=== PATIENT | female | born 1950 ===

== ENCOUNTER → 2020-09-25 10:44 | Outpatient (BNVA) | payer MEDICARE, MEDICAID, SELFPAY | PROVIDERS: PCP Internal Medicine; Referring Provider Internal Medicine; Visit Provider Student in an Organized Health Care Education/Training Program | DX: M81.0 Age-related osteoporosis without current pathological fracture (principal) | CPT/HCPCS: 99212 ==

== ENCOUNTER 2020-10-09 07:18 | Day surgery (SDC) | payer MEDICARE, MEDICAID, SELFPAY ==
[2020-10-02 13:47] VITALS: BMI 34.7
[2020-10-09 07:47] VITALS: BP 146/87; PULSE 92; RESP 18; TEMP 36.6; O2SAT 96
--- NOTE | 2020-10-09 07:49 | P.CONAN_ITS ---
HPI - Anesthesia Eval Consult details Narrative: 70yo female patient here for colonoscopy [facility] Past Medical History Medical History (Updated 10/09/20 @ 07:59 by Viridiana Vega) Essential hypertension GERD (gastroesophageal reflux disease) Hypovitaminosis D Low back pain Obese Osteoarthritis Osteoporosis Polyarthralgia Vitamin D deficiency Family History Family History Father Cancer Mother Cancer Son Past heart attack Family history of problems with anesthesia: No Surgical History Surgical History History of tubal ligation Hx of colonoscopy History of Problems with Anesthesia: No Social History Social History Household Members: None Are you a primary patient care associate to a significant other at home: No Do you presently have 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 If so, by whom?: No Advance Directives: No Advance Directives Information Provided: No Advance Directives on File: No Recently lost weight without trying: No Sexual orientation: Straight/Heterosexual Gender identity: female Meds Allergies Allergy/AdvReac Type Severity Reaction Status Date / Time tizanidine Allergy Unknown dry mouth Verified 09/25/20 10:49 Home Medications Medication Instructions Recorded Confirmed Type aspirin 81 mg tablet,delayed 81 mg PO DAILY 09/04/20 10/02/20 History release cholecalciferol (vitamin D3) 25 25 mcg PO DAILY 09/04/20 10/02/20 History mcg (1,000 unit) tablet lisinopril 20 mg tablet 20 mg PO DAILY 09/25/20 10/02/20 History Exam Exam Date and Time: October 09, 2020 0749 Height,Weight and Vital Signs: Height 4 ft 6 in Weight 65.317 kg Vital Signs Temp Pulse Resp BP Pulse Ox 10/09/20 07:47 97.8 F 92 18 146/87 H 96 Narrative Narrative: Barrel-shaped chest. No h/o COPD. Never smoker Airway Mallampati Class: II TM Dist: >3cm Neck ROM: Full Loose/Missing/Broken Teeth: Yes (Some missing) Heart: RRR Lungs: CTAB Assessment and Plan Assessment Anesthesia Assessment: Anesthesia Plan Discussed and Chart Reviewed Final Anesthetic Review NPO: Yes ASA Class: II Final Preanesthetic Review: No Changes in Pt Med Stat, Meds/Allgs Chart Reviewed, Consent Obtained/Reviewed and Anes Risks/Benef Reviewed Patient Risk: Low Procedure Risk: Low Assessment/Block/Sedation in SS: Assess/Block/Sedation-SS Anesthetic Plan Anesthetic Plan: MAC: Disposition: Standard PACU
[2020-10-09] MEDS: Lactated Ringers 1,000 ML 100 ML IVCONT (08:06)
[2020-10-09 09:24] VITALS: BP 127/59; PULSE 93; RESP 16; TEMP 36.5; O2SAT 99
--- NOTE | 2020-10-09 09:25 | PM.OP ---
Brief Operative Note Date of Service: 10/09/20 Pre-op diagnosis: Screening, History of colon polyps Post-op diagnosis: other (Diverticulosis, Internal hemorrhoids) Procedure: Colonoscopy to the cecum Surgeon: Abdias Singer Anesthesia: MAC Estimated blood loss (mL): 0 Pathology: none sent Condition: stable Disposition: PACU
--- NOTE | 2020-10-09 09:34 | PC.NURSE ---
7587 DR REYNA IN AT BS SPEAKING WITH PT NO POLYPS THIS TIME REPEAT COLONOSCOPY 3 YEARS, SIT UP START SIPS PO.
[2020-10-09 09:39] VITALS: BP 140/81; PULSE 88; RESP 16; O2SAT 99
--- NOTE | 2020-10-09 10:05 | HO.POSTANES ---
Post Anesthesia Evaluation Post Anesthesia Evaluation Vital Signs: Vital Signs Temp Pulse Resp BP Pulse Ox 10/09/20 09:24 97.7 F 93 16 127/59 L 99 10/09/20 07:47 97.8 F 92 18 146/87 H 96 Anesthesia: Monitored Mental Status: Awake Pain Control: Satisfactory Nausea/Vomiting: None Hydration: Adequate Anesthesia-Related Issues: No Anes. Related Issues
--- NOTE | 2020-10-09 10:12 | OP_ITS ---
SURGEON: Abdias Singer MD INDICATIONS: The patient presents for followup of colorectal cancer screening and personal history of tubular adenoma of the colon. Full consent has been obtained from her for this, including risks of bleeding and perforation. PREOPERATIVE DIAGNOSIS: POSTOPERATIVE DIAGNOSIS: PROCEDURE PERFORMED: Colonoscopy to the cecum. ESTIMATED BLOOD LOSS: COMPLICATIONS: ANESTHESIA: ASSISTANTS: SPECIMENS: PREOPERATIVE DIAGNOSES: Colorectal cancer screening and personal history of tubular adenoma of the colon. POSTOPERATIVE DIAGNOSES: Colorectal cancer screening and personal history of tubular adenoma of the colon, diverticulosis, and internal hemorrhoids. DESCRIPTION OF PROCEDURE: The patient was placed in the left lateral decubitus position. The digital rectal exam revealed no abnormalities. The Olympus video pediatric colonoscope was entered into the rectum and advanced easily to the cecum. Once in the cecum, I did identify normal-appearing cecal pouch with appendiceal orifice and a normal-appearing ileocecal valve. There was transillumination of light deep in the right lower quadrant. The entire cecum was well visualized and appeared normal. The scope was slowly withdrawn assessing all mucosal surfaces carefully. Preparation was excellent. The ileocecal valve appeared normal. The site of the previous polypectomy, which was in the very proximal ascending colon along the inferior portion of the ileocecal valve did not appear to show any residual polyp tissue. I did not visualize any polyps, colitis, nor angiodysplasia. There was a mild amount of sigmoid diverticulosis. In the rectum, scope was retroflexed visualizing internal hemorrhoids, but no other pathology. The rectal mucosa appeared normal. The scope was straightened out and withdrawn from the patient. She tolerated the procedure well and was returned to the recovery area in stable condition. IMPRESSION: 1. Diverticulosis. 2. Internal hemorrhoids. PLAN: Given her previous history, I would recommend a followup colonoscopy in 3 years for further surveillance. She was advised that she could resume aspirin today. This has been discussed with her family. MD NICK Mishra/MIREYAL / [id number]
== END 2020-10-09 10:06 | disposition home or self-care (01) ==
PROVIDERS: PCP Internal Medicine; Visit Provider Internal Medicine
PROC: 0DJD8ZZ Inspection of Lower Intestinal Tract, Via Natural or Artificial Opening Endoscopic (ICD-10-PCS; CPT 45378; principal; 2020-10-09 08:40)
DX: Z12.11 Encounter for screening for malignant neoplasm of colon (principal); Z86.010 Personal history of colon polyps; I10 Essential (primary) hypertension; K21.9 Gastro-esophageal reflux disease without esophagitis; M81.0 Age-related osteoporosis without current pathological fracture; K57.30 Diverticulosis of large intestine without perforation or abscess without bleeding; K64.8 Other hemorrhoids; Z79.82 Long term (current) use of aspirin; Z79.899 Other long term (current) drug therapy
CPT/HCPCS: G0105

== ENCOUNTER → 2020-10-11 12:54 | Outpatient (BNVA) | payer MEDICARE, MEDICAID, SELFPAY | PROVIDERS: PCP Internal Medicine; Visit Provider Student in an Organized Health Care Education/Training Program | DX: M81.0 Age-related osteoporosis without current pathological fracture (principal) | CPT/HCPCS: 96402 ==

== ENCOUNTER 2020-11-06 08:02 | Outpatient (REF) | payer MEDICARE, MEDICAID, SELFPAY ==
[2020-11-06 09:38] LABS: Alanine Aminotransferase 12 U/L (0-31); Albumin Level 4.4 g/dL (3.5-5.0); Alkaline Phosphatase 89 U/L (39-117); Anion Gap 13 (12-20); Aspartate Amino Transferase 17 U/L (5-31); Bilirubin Total 0.9 mg/dL (0.0-1.0); Blood Urea Nitrogen 16 mg/dL (9-16); Carbon Dioxide 26 mmol/L (22-29); Chloride 102 mmol/L (96-108); Cholesterol 209 mg/dL; Estimated Glomerular Filt Rate > 60; Glucose Fasting 112 mg/dL (60-99); HDL Cholesterol 68 mg/dL; LDL Cholesterol Calculated 112 mg/dl; Potassium 4.8 mmol/L (3.3-5.1); Sodium 136 mmol/L (135-145); Total Protein 7.3 g/dL (6.5-8.0); Triglycerides 145 mg/dL
[2020-11-12 13:57] LABS: Vitamin D 25-OH, D2 <4 ng/mL; Vitamin D 25-OH, D3 56 ng/mL; Vitamin D 25-OH, Total 56 ng/mL (30-100)
== END 2020-11-06 08:03 | disposition home or self-care (01) ==
LOC: HO.LAB 08:02
PROVIDERS: PCP Internal Medicine; Visit Provider Internal Medicine
DX: I10 Essential (primary) hypertension (principal); E55.9 Vitamin D deficiency, unspecified
CPT/HCPCS: 36415; 80053; 80061; 82306

== ENCOUNTER 2020-11-28 10:38 | Outpatient (REF) | payer MEDICARE, MEDICAID, SELFPAY ==
--- NOTE | ~2020-11-28 | MM_ITS ---
EXAMINATION: MM DIAGNOSTIC DIGITAL BREAST TOMOSYNTHESIS, RIGHT CLINICAL INFORMATION: Short interval six-month follow-up for linear density inferior medial right breast. The lifetime risk of breast cancer based on the Tyrer-Cuzick Model is 3%. COMPARISON: Mammography: 05/31/2020, 05/22/2020 (BI-RADS 0) 04/12/2019 TECHNIQUE: Digital breast tomosynthesis is performed in both the craniocaudal and mediolateral oblique views along with computer-aided detection (CAD). Synthesized 2D images are generated from the tomosynthesis. FINDINGS: The breasts are almost entirely fatty (ACR BI-RADS breast composition Category a). The short linear density noted on prior imaging is not seen with certainty on current exam. There is no developing density or interval mass or architectural abnormality. No abnormal calcifications. Results are provided to the patient at time of visit by the technologist. Plantar for diagnostic mammography at time of annual bilateral exam, due in 6 months. If the finding is no longer present, then convert to BI-RADS 2. MM/MM tomosynthesis diagnostic RT IMPRESSION: No mammographic evidence of malignancy. The short linear density inferior medial right breast is no longer demonstrated with certainty. ASSESSMENT: BI-RADS 3: Probably Benign RECOMMENDATION: Diagnostic mammography at time of annual bilateral exam, due in 6 months. This patient's information was entered into a reminder system with a target due date for their next mammogram.
== END 2020-11-28 10:39 | disposition home or self-care (01) ==
LOC: HO.MAMMO 10:38
PROVIDERS: PCP Internal Medicine; Visit Provider Internal Medicine
DX: R92.2 Inconclusive mammogram (principal)
CPT/HCPCS: 77061; 77065

== ENCOUNTER 2021-01-13 09:33 | Emergency (ER) | payer MEDICARE, MEDICAID, SELFPAY ==
--- NOTE | ~2021-01-13 | CT_ITS ---
EXAMINATION: CT ABDOMEN AND PELVIS WITHOUT CONTRAST CLINICAL INFORMATION: Right flank pain COMPARISON: None TECHNIQUE: Multidetector volumetric imaging was performed from the superior aspect of the liver through the pubic symphysis. Sagittal and coronal reformatted images were obtained on the technologist's workstation. This CT examination was performed using dose optimization techniques as appropriate, variously including the following: *Automated exposure control *Adjustment of mA and/or kV according to patient size (this includes techniques or standardized protocols for targeted exams where dose is matched to indication/reason for exam; i.e. extremities or head) *Use of iterative reconstruction technique DLP: 521 mGy-cm FINDINGS: LUNG BASES: The visualized lung bases are unremarkable. LIVER, GALLBLADDER, AND BILIARY TREE: The liver is normal in size, shape, and attenuation. No focal hepatic lesion or biliary ductal dilatation is present. The gallbladder is unremarkable with no evidence of radiopaque gallstones, gallbladder wall thickening, or obvious pericholecystic inflammatory changes. PANCREAS: Unremarkable. SPLEEN: Unremarkable. ADRENAL GLANDS: Unremarkable. KIDNEYS AND URETERS: The kidneys are normal in size, shape, and attenuation. No hydronephrosis, hydroureter, or calculi seen. No perinephric stranding. BLADDER: Unremarkable. GASTROINTESTINAL TRACT: The small and large bowel are unremarkable. The appendix is unremarkable. ABDOMINAL WALL: No significant hernia is appreciated. LYMPH NODES: Normal. VASCULAR: Unremarkable. PELVIC VISCERA: Unremarkable. OSSEOUS STRUCTURES: There are multiple lower thoracic thoracic and lumbar vertebral body compression fractures, sparing the L3 vertebral body. These do not appear acute. There is a sclerotic lesion in the left side of the S1 vertebral body CT/CT abdomen pelvis wo con IMPRESSION: Multiple lower thoracic and lumbar vertebral body compression fractures. These do not appear acute. Otherwise unremarkable exam.
[2021-01-13 11:03] VITALS: BP 116/61; PULSE 70; RESP 16; TEMP 37; O2SAT 100; BMI 34.4
--- NOTE | 2021-01-13 12:45 | ED_ITS ---
HPI - Abdominal Pain General Chief Complaint: Abdominal Pain Stated Complaint: FLANK PAIN Time Seen by Provider: 01/13/21 11:36 Source: patient Mode of arrival: ambulatory Limitations: language barrier (Serbian-speaking) History of Present Illness HPI narrative: 70-year-old female with a past medical history of essential hypertension, GERD, chronic low back pain with osteoporosis presenting to the ED with complaints of right-sided lower back/flank pain radiating to the right abdomen that started last night worse this morning. Denies any dizziness, fevers, headaches, lightheadedness, change in vision, nausea/vomiting, chest pain, shortness of breath, dyspnea on exertion, orthopnea, palpitations, dysuria, hematuria, black or bloody stools, recent travel or sick contacts or bad food exposure or any other symptoms complaints or concerns at this time. MD elicited complaint: abdominal pain and flank pain Onset (ago): day(s) (Since last night worse today) Pain Consistency: constant Location: R flank and other (Right back) Severity: moderate Quality: aching Radiation: RLQ Exacerbating factors: nothing Relieving factors: nothing Associated symptoms: denies other symptoms Related Data Home Medications Medication Instructions Recorded Confirmed cholecalciferol (vitamin D3) 25 25 mcg PO DAILY 09/04/20 11/26/20 mcg (1,000 unit) tablet Previous Rx's Medication Instructions Recorded famotidine 20 mg tablet 20 mg PO BID #180 tab 06/25/20 acetaminophen 500 mg tablet 1,000 mg PO Q6H PRN 30 Days #180 09/04/20 tab denosumab 60 mg/mL subcutaneous 60 mg SUBCUT [id number] #1 ml 10/02/20 syringe aspirin 81 mg tablet,delayed 81 mg PO DAILY #90 tab 11/26/20 release lisinopril 20 mg tablet 20 mg PO DAILY 90 Days #90 tab 11/26/20 acetaminophen-codeine 1 tab PO Q8H PRN #10 tab 01/13/21 cyclobenzaprine 10 mg PO Q8H #10 tab 01/13/21 naproxen 500 mg PO BID PRN #10 tab 01/13/21 Allergies Allergy/AdvReac Type Severity Reaction Status Date / Time tizanidine Allergy Unknown dry mouth Verified 01/13/21 11:03 Review of Systems Review of Systems Constitutional : No Weight loss, No Fever, No Chills, No Night Sweats, No Fatigue, NoMalaise ENT/Mouth: No ear pain, No sore throat, No Difficulty swallowing Cardiovascular : No Chest Pain, No SOB, No Dyspnea on Exertion, No Orthopnea, NoEdema, No Palpitations Respiratory : No Cough, No Sputum, No Wheezing, No Dyspnea Gastrointestinal : Positive abdominal pain, No Nausea, No Vomiting, No Diarrhea , No blood streaked emesis, No coffee-ground emesis, No gross hematemesis, No blood streak stool, No gross hematochezia, No Melena Genitourinary : No irregular bleeding, No Dysuria, No Urinary Frequency, No Hematuria,No Urinary Incontinence, No Urgency, No Flank Pain Musculoskeletal : No joint pain, No Myalgias, No Joint Swelling Skin : No Skin Lesions, No rash Neuro : No Weakness, No Numbness, No Paresthesias, No Loss of Consciousness, NoDizziness, No Headache Psych : No Social Issues, Heme/Lymph: No Bruising, No Bleeding,No Lymphadenopathy Endocrine : No Polyuria, No Polydipsia, No Temperature Intolerance Yes all other systems are reviewed and are negative Physical Exam Vital Signs: Vital Signs: Last Vital Signs Temp 98.6 F 01/13/21 11:03 Pulse 70 01/13/21 11:03 Resp 16 01/13/21 11:03 BP 116/61 01/13/21 11:03 Pulse Ox 100 01/13/21 11:03 Body Mass Index 34.4 vital signs have been reviewed as normal and appeared to be correct. Blood pressure normal. Heart rate normal. Respiration rate normal. Temperature normal. Oxygen saturation normal. Appearance: Alert. Oriented X3. No acute distress. Head: Normal external exam. Normocephalic. Eyes: PERRLA. EOMI. Conjunctiva and sclera normal. Eyelids normal. ENT: Pharynx normal. Uvula midline. Moist mucous membranes. No trismus noted. No drooling noted. No muffled voice noted. Neck: Normal inspection. Neck supple. FROM. No adenopathy. No meningeal signs. CVS: Normal heart rate and rhythm. Heart sound normal. No murmurs noted. Pulses normal throughout. Respiratory: No respiratory distress. Painless inspiration. Breath sounds normal. No wheezes/rales/rhonchi noted. Chest nontender. No accessory muscle usage noted or decreased air movement noted. Abdomen: Soft and mild tenderness to the right upper quadrant/right lower quadrant/right flank with guarding. Nondistended. No rigidity. Bowel sounds normal in all 4 quadrants. No distention noted. No organomegaly noted. No visible injury noted. No rebound tenderness. Negative Rovsing sign. Negative obturator's sign. Negative psoas sign. Negative Owens sign. Back: Positive right CVA tenderness. No left CVA tenderness is noted. Full range of motion noted. No rashes/lesion/induration/fluctuance or sign of infection noted. Patient has a normal steady gait. No mid thoracic/lumbar tenderness step-offs or deformities noted. Patient is neuro intact bilaterally distally on all 4 extremities. Reflexes intact bilaterally and distally in all 4 extremities. Skin: Skin warm and dry. Normal skin color. Normal skin turgor. No rashes/lesions/lacerations noted. Extremities: Extremities exhibit normal range of motion. Extremities nontender. Neuro: Oriented X 3. No motor deficit. No sensory deficit. Reflexes normal. Normal steady gait. Course Course Course Narrative: 14pm - labs returned and all within normal limits. UA within normal limits no evidence of UTI. - CT scan of abdomen and pelvis revealed Multiple lower thoracic and lumbar vertebral body compression fractures. These do not appear acute. Otherwise unremarkable exam. - therefore will DC home with symptomatic treatment instructions to return if any new or worsening symptoms to follow up with primary care provider. Patient understands agrees with this plan. MDM - Abdominal Pain MDM Narrative Medical decision making narrative: 12pm - 70-year-old female with a past medical history of essential hypertension, GERD, chronic low back pain with osteoporosis presenting to the ED with complaints of right-sided lower back/flank pain radiating to the right abdomen that started last night worse this morning. Plan: Labs, UA, CT scan of abdomen and pelvis without IV contrast. Provide a L of IV fluids and 30 mg of IV Toradol then re-evaluate. Medical Records Attestation: I reviewed the patient's medical records. Lab Data Attestation: I reviewed the patient's lab results. Result diagrams: 01/13/21 13:04 01/13/21 13:04 Labs: Lab Results 01/13/21 01/13/21 01/13/21 Range/Units 12:50 13:04 13:04 WBC 7.4 (4.8-10.8) X10*3/uL RBC 3.98 L (4.20-5.50) X10*6/uL Hgb 12.2 (12.0-16.0) g/dl Hct 37.0 (37-47) % MCV 93.0 (80-98) fL MCH 30.7 (27.0-33.0) pg MCHC 33.0 (31.0-35.0) g/dl RDW 13.2 (11.0-16.0) % Plt Count 285 (160-400) X10*3/uL MPV 10.7 (9.4-12.3) fL Immature Gran % (Auto) 0.3 (0.0-0.4) % Neut % (Auto) 65.6 (45-73) % Lymph % (Auto) 25.5 (20-40) % [place] % (Auto) 7.0 (2-11) % Eos % (Auto) 1.3 (0-4) % Baso % (Auto) 0.3 (0-2) % Lymph # (Auto) 1.9 (1.2-4.9) X10*3/uL [place] # (Auto) 0.5 (0.1-1.2) X10*3/uL Eos # (Auto) 0.1 (0.0-0.4) X10*3/uL Baso # (Auto) 0.0 (0.0-0.2) X10*3/uL Abs Immat Gran (auto) 0.02 (0.00-0.03) X10*3/uL Absolute Neuts (auto) 4.9 (2.0-8.3) X10*3/uL Absolute Nucleated RBC 0.000 (0.0-0.012) X10*3/uL Nucleated RBC % (auto) 0.0 (0.0-0.2) /100WBC Hold Blue Top Sodium 136 (135-145) mmol/L Potassium 4.6 (3.3-5.1) mmol/L Chloride 105 (96-108) mmol/L Carbon Dioxide 20 L (22-29) mmol/L Anion Gap 16 (12-20) BUN 17 H (9-16) mg/dL Creatinine 0.68 (0.5-1.4) mg/dL Estim Creat Clear Calc 53.8 Estimated GFR > 60 Random Glucose 102 (60-115) mg/dL Calcium 9.3 (8.4-10.2) mg/dL Magnesium 2.3 (1.6-2.6) mg/dL Total Bilirubin 0.5 (0.0-1.0) mg/dL Direct Bilirubin 0.3 (0.0-0.5) mg/dL AST 21 (5-31) U/L ALT 16 (0-31) U/L Alkaline Phosphatase 64 D (39-117) U/L Total Protein 7.0 (6.5-8.0) g/dL Albumin 4.2 (3.5-5.0) g/dL Lipase 17 (8-78) U/L Urine Color YELLOW Urine Appearance CLEAR Urine pH 6.5 (5.0-8.0) Ur Specific [place] 1.020 (1.005-1.025) Urine Protein NEG (NEG-TRACE) MG/DL Urine Glucose (UA) NEG (NEG) MG/DL Urine Ketones 5 (NEG) MG/DL Urine Blood NEG (NEG) Urine Nitrite NEG (NEG) Ur Leukocyte Esterase NEG (NEG) 01/13/21 Range/Units 13:04 WBC (4.8-10.8) X10*3/uL RBC (4.20-5.50) X10*6/uL Hgb (12.0-16.0) g/dl Hct (37-47) % MCV (80-98) fL MCH (27.0-33.0) pg MCHC (31.0-35.0) g/dl RDW (11.0-16.0) % Plt Count (160-400) X10*3/uL MPV (9.4-12.3) fL Immature Gran % (Auto) (0.0-0.4) % Neut % (Auto) (45-73) % Lymph % (Auto) (20-40) % [place] % (Auto) (2-11) % Eos % (Auto) (0-4) % Baso % (Auto) (0-2) % Lymph # (Auto) (1.2-4.9) X10*3/uL [place] # (Auto) (0.1-1.2) X10*3/uL Eos # (Auto) (0.0-0.4) X10*3/uL Baso # (Auto) (0.0-0.2) X10*3/uL Abs Immat Gran (auto) (0.00-0.03) X10*3/uL Absolute Neuts (auto) (2.0-8.3) X10*3/uL Absolute Nucleated RBC (0.0-0.012) X10*3/uL Nucleated RBC % (auto) (0.0-0.2) /100WBC Hold Blue Top SEE NOTE Sodium (135-145) mmol/L Potassium (3.3-5.1) mmol/L Chloride (96-108) mmol/L Carbon Dioxide (22-29) mmol/L Anion Gap (12-20) BUN (9-16) mg/dL Creatinine (0.5-1.4) mg/dL Estim Creat Clear Calc Estimated GFR Random Glucose (60-115) mg/dL Calcium (8.4-10.2) mg/dL Magnesium (1.6-2.6) mg/dL Total Bilirubin (0.0-1.0) mg/dL Direct Bilirubin (0.0-0.5) mg/dL AST (5-31) U/L ALT (0-31) U/L Alkaline Phosphatase (39-117) U/L Total Protein (6.5-8.0) g/dL Albumin (3.5-5.0) g/dL Lipase (8-78) U/L Urine Color Urine Appearance Urine pH (5.0-8.0) Ur Specific [place] (1.005-1.025) Urine Protein (NEG-TRACE) MG/DL Urine Glucose (UA) (NEG) MG/DL Urine Ketones (NEG) MG/DL Urine Blood (NEG) Urine Nitrite (NEG) Ur Leukocyte Esterase (NEG) Imaging Data CT scan of abdomen pelvis with IV contrast: Attestation: I personally reviewed and interpreted this imaging study as follows: Radiologist's impression: FINDINGS: LUNG BASES: The visualized lung bases are unremarkable. LIVER, GALLBLADDER, AND BILIARY TREE: The liver is normal in size, shape, and attenuation. No focal hepatic lesion or biliary ductal dilatation is present. The gallbladder is unremarkable with no evidence of radiopaque gallstones, gallbladder wall thickening, or obvious pericholecystic inflammatory changes. PANCREAS: Unremarkable. SPLEEN: Unremarkable. ADRENAL GLANDS: Unremarkable. KIDNEYS AND URETERS: The kidneys are normal in size, shape, and attenuation. No hydronephrosis, hydroureter, or calculi seen. No perinephric stranding. BLADDER: Unremarkable. GASTROINTESTINAL TRACT: The small and large bowel are unremarkable. The appendix is unremarkable. ABDOMINAL WALL: No significant hernia is appreciated. LYMPH NODES: Normal. VASCULAR: Unremarkable. PELVIC VISCERA: Unremarkable. OSSEOUS STRUCTURES: There are multiple lower thoracic thoracic and lumbar vertebral body compression fractures, sparing the L3 vertebral body. These do not appear acute. There is a sclerotic lesion in the left side of the S1 vertebral body CT/CT abdomen pelvis wo con IMPRESSION: Multiple lower thoracic and lumbar vertebral body compression fractures. These do not appear acute. Otherwise unremarkable exam. Critical Care Time Critical Care Time Critical Care Time: Yes Total Critical Care Time: 60 Attestation: I personally attest to this time spent taking care of the patient Discharge Plan Discharge Clinical Impression: Closed compression fracture of body of lumbar vertebra, Compression fracture of body of thoracic vertebra, Chronic back pain Patient Disposition: Home, Self-Care Instructions: Chronic Back Pain (DC), Lower Back Exercises (ED) Prescriptions: New cyclobenzaprine 10 mg tablet 10 mg PO Q8H Qty: 10 RF: 0 naproxen 500 mg tablet 500 mg PO BID PRN (Reason: pain) Qty: 10 RF: 0 acetaminophen-codeine 300-30 mg tablet 1 tab PO Q8H PRN (Reason: pain) Qty: 10 RF: 0 No Action famotidine 20 mg tablet 20 mg PO BID Qty: 180 RF: 2 Prolia 60 mg/mL syringe 60 mg subcut [id number] Qty: 1 RF: 1 cholecalciferol (vitamin D3) 25 mcg (1,000 unit) tablet 25 mcg PO DAILY RF: 0 acetaminophen 500 mg tablet 1,000 mg PO Q6H PRN (Reason: pain) 30 Days Qty: 180 RF: 4 aspirin 81 mg tablet,delayed release (DR/EC) 81 mg PO DAILY Qty: 90 RF: 3 lisinopril 20 mg tablet 20 mg PO DAILY 90 Days Qty: 90 RF: 3 Referrals: Angelina Ribeiro MD [Primary Care Provider] - 2 days Print Language: Serbian [facility] Past Medical History Attestation statement: The following information was validated with the patient. Medical History Essential hypertension GERD (gastroesophageal reflux disease) Hypovitaminosis D Low back pain Obese Osteoarthritis Osteoporosis Polyarthralgia Vitamin D deficiency Surgical History History of tubal ligation Hx of colonoscopy Family History Family History Father Cancer Mother Cancer Son Past heart attack Social History Social History Household Members: None Alcohol intake: never Smoking Status: Never smoker Second Hand Smoke Exposure: No Advance Directives: No Advance Directives Information Provided: Yes Sexual orientation: Straight/Heterosexual Gender identity: female
[2021-01-13 13:09] LABS: MANUAL DIFF FLAG NO
[2021-01-13 13:14] LABS: Glucose Urine UA NEG (NEG); Leukocyte Esterase Urine NEG (NEG); Nitrite Urine NEG (NEG); PH 6.5 (5.0-8.0); Urine Blood NEG (NEG); Urine Ketones 5 MG/DL (NEG); Urine Protein NEG (NEG-TRACE)
[2021-01-13 13:15] LABS: Basophils Percent Auto 0.3 % (0-2); Eosinophils Absolute Auto 0.1 X10*3/uL (0.0-0.4); Eosinophils Percent Auto 1.3 % (0-4); Hemoglobin 12.2 g/dl (12.0-16.0); Imm Gran Abs Auto 0.02 X10*3/uL (0.00-0.03); Imm Gran Pct Auto 0.3 % (0.0-0.4); Lymphocytes Absolute Auto 1.9 X10*3/uL (1.2-4.9); Lymphocytes Percent Auto 25.5 % (20-40); Mean Corpuscular Hemoglobin 30.7 pg (27.0-33.0); Mean Platelet Volume 10.7 fL (9.4-12.3); Monocytes Absolute Auto 0.5 X10*3/uL (0.1-1.2); Neutrophils Absolute Auto 4.9 X10*3/uL (2.0-8.3); Neutrophils Percent Auto 65.6 % (45-73); Platelet Count 285 X10*3/uL (160-400); Red Blood Count 3.98 X10*6/uL (4.20-5.50); Red Cell Distribution Width 13.2 % (11.0-16.0); White Blood Count 7.4 X10*3/uL (4.8-10.8)
[2021-01-13 13:15] LABS: Appearance Urine CLEAR; Color Urine YELLOW
[2021-01-13 13:39] LABS: Alanine Aminotransferase 16 U/L (0-31); Albumin Level 4.2 g/dL (3.5-5.0); Alkaline Phosphatase 64 U/L (39-117); Anion Gap 16 (12-20); Aspartate Amino Transferase 21 U/L (5-31); Bilirubin Direct 0.3 mg/dL (0.0-0.5); Bilirubin Total 0.5 mg/dL (0.0-1.0); Blood Urea Nitrogen 17 mg/dL (9-16); Calcium 9.3 mg/dL (8.4-10.2); Carbon Dioxide 20 mmol/L (22-29); Chloride 105 mmol/L (96-108); Creatinine Clr Calc Pharmacy 53.8; Estimated Glomerular Filt Rate > 60; Glucose Random 102 mg/dL (60-115); Lipase 17 U/L (8-78); Magnesium 2.3 mg/dL (1.6-2.6); Potassium 4.6 mmol/L (3.3-5.1); Sodium 136 mmol/L (135-145)
[2021-01-13] MEDS: Cyclobenzaprine HCl 10 MG TABLET PO (14:26)
== END 2021-01-13 14:30 | disposition home or self-care (01) ==
PROVIDERS: Physician Assistant Medical; Emergency Provider Emergency Medicine; PCP Internal Medicine
DX: M48.56XA Collapsed vertebra, not elsewhere classified, lumbar region, initial encounter for fracture (principal); M48.54XA Collapsed vertebra, not elsewhere classified, thoracic region, initial encounter for fracture; G89.29 Other chronic pain; M54.5 Low back pain; M54.6 Pain in thoracic spine; I10 Essential (primary) hypertension; M19.90 Unspecified osteoarthritis, unspecified site
CPT/HCPCS: 36415; 74176; 80048; 80076; 81003; 83690; 83735; 85025; 96361; 96374; 99283; 99291

== ENCOUNTER 2021-02-10 07:58 | Outpatient (REF) | payer MEDICARE, MEDICAID, SELFPAY ==
[2021-02-10 09:17] LABS: Alanine Aminotransferase 18 U/L (0-31); Albumin Level 4.2 g/dL (3.5-5.0); Alkaline Phosphatase 73 U/L (39-117); Anion Gap 11 (12-20); Aspartate Amino Transferase 21 U/L (5-31); Bilirubin Total 0.8 mg/dL (0.0-1.0); Blood Urea Nitrogen 13 mg/dL (9-16); Calcium 9.2 mg/dL (8.4-10.2); Carbon Dioxide 27 mmol/L (22-29); Chloride 106 mmol/L (96-108); Estimated Glomerular Filt Rate > 60; Glucose Fasting 100 mg/dL (60-99); Potassium 4.2 mmol/L (3.3-5.1); Sodium 140 mmol/L (135-145); Total Protein 6.9 g/dL (6.5-8.0)
[2021-02-16 14:11] LABS: Vitamin D 25-OH, D2 <4 ng/mL; Vitamin D 25-OH, D3 54 ng/mL; Vitamin D 25-OH, Total 54 ng/mL (30-100)
== END 2021-02-10 07:59 | disposition home or self-care (01) ==
LOC: HO.LAB 07:58
PROVIDERS: PCP Internal Medicine; Visit Provider Internal Medicine
DX: I10 Essential (primary) hypertension (principal); E55.9 Vitamin D deficiency, unspecified
CPT/HCPCS: 36415; 80053; 82306

== ENCOUNTER → 2021-04-30 12:37 | Outpatient (BNVA) | payer MEDICARE, MEDICAID, SELFPAY | PROVIDERS: Visit Provider Student in an Organized Health Care Education/Training Program | DX: M81.0 Age-related osteoporosis without current pathological fracture (principal); E55.9 Vitamin D deficiency, unspecified; I10 Essential (primary) hypertension; Z88.8 Allergy status to other drugs, medicaments and biological substances; Z79.82 Long term (current) use of aspirin; Z79.899 Other long term (current) drug therapy | CPT/HCPCS: 96372; 99212 ==

== ENCOUNTER 2021-05-29 10:13 | Outpatient (REF) | payer MEDICARE, MEDICAID, SELFPAY | END 2021-05-29 10:14 | disposition home or self-care (01) | LOC: HO.LAB 10:13 | PROVIDERS: PCP Internal Medicine; Visit Provider Internal Medicine | DX: Z13.89 Encounter for screening for other disorder (principal) ==

== ENCOUNTER 2021-06-02 13:12 | Outpatient (REF) | payer MEDICARE, MEDICAID, SELFPAY ==
--- NOTE | ~2021-06-02 | MM_ITS ---
EXAMINATION: MM DIAGNOSTIC DIGITAL BREAST TOMOSYNTHESIS, BILATERAL CLINICAL INFORMATION: Due for yearly. Also follow-up short linear density medial right breast. The lifetime risk of breast cancer based on the Tyrer-Cuzick Model is 3%. COMPARISON: Mammography: 11/28/2020, 05/31/2020, 05/22/2020 (BI-RADS 0), 04/12/2019, 10/03/2018, 03/15/2018. TECHNIQUE: Digital breast tomosynthesis is performed in both the craniocaudal and mediolateral oblique views along with computer-aided detection (CAD). Synthesized 2D images are generated from the tomosynthesis. Additional left MLO view is provided. FINDINGS: The breasts are almost entirely fatty (ACR BI-RADS breast composition Category a). The short linear density medial right breast initially noted on 05/22/2020 is not demonstrated on current exam nor on the prior study 6 months ago. The remainder of the bilateral breasts are unremarkable with no interval mass or developing density, architectural abnormality, or abnormal calcifications. The axilla and skin contours are unremarkable. Results are provided to the patient at time of visit by the technologist. MM/MM tomosynthesis diagnostic BI IMPRESSION: 1. No mammographic evidence of malignancy. 2. The short linear density medial right breast is no longer demonstrated. ASSESSMENT: BI-RADS 1: Negative RECOMMENDATION: Routine annual mammography screening. This patient's information was entered into a reminder system with a target due date for their next mammogram.
== END 2021-06-02 13:13 | disposition home or self-care (01) ==
LOC: HO.MAMMO 13:12
PROVIDERS: Internal Medicine; Visit Provider Internal Medicine
DX: R92.2 Inconclusive mammogram (principal); Z20.822 Contact with and (suspected) exposure to COVID-19
CPT/HCPCS: 77062; 77066; C9803; U0003; U0005

== ENCOUNTER 2021-06-25 07:45 | Outpatient (REF) | payer MEDICARE, MEDICAID, SELFPAY ==
[2021-06-25 08:59] LABS: Alanine Aminotransferase 16 U/L (0-31); Albumin Level 4.4 g/dL (3.5-5.0); Alkaline Phosphatase 68 U/L (39-117); Anion Gap 16 (12-20); Aspartate Amino Transferase 19 U/L (5-31); Bilirubin Total 0.8 mg/dL (0.0-1.0); Blood Urea Nitrogen 22 mg/dL (9-16); Carbon Dioxide 22 mmol/L (22-29); Chloride 103 mmol/L (96-108); Cholesterol 211 mg/dL; Estimated Glomerular Filt Rate > 60; Glucose Fasting 116 mg/dL (60-99); HDL Cholesterol 76 mg/dL; LDL Cholesterol Calculated 116 mg/dl; Potassium 4.8 mmol/L (3.3-5.1); Sodium 136 mmol/L (135-145); Total Protein 7.2 g/dL (6.5-8.0); Triglycerides 98 mg/dL
[2021-06-29 12:06] LABS: Vitamin D 25-OH, D2 <4 ng/mL; Vitamin D 25-OH, D3 52 ng/mL; Vitamin D 25-OH, Total 52 ng/mL (30-100)
== END 2021-06-25 07:46 | disposition home or self-care (01) ==
LOC: HO.LAB 07:45
PROVIDERS: PCP Internal Medicine; Visit Provider Internal Medicine
DX: E55.9 Vitamin D deficiency, unspecified (principal); E78.5 Hyperlipidemia, unspecified; K21.9 Gastro-esophageal reflux disease without esophagitis
CPT/HCPCS: 36415; 80053; 80061; 82306

== ENCOUNTER 2021-11-27 09:44 | Outpatient (REF) | payer MEDICARE, MEDICAID, SELFPAY ==
[2021-11-27 11:55] LABS: Alanine Aminotransferase 13 U/L (0-31); Albumin Level 4.1 g/dL (3.5-5.0); Alkaline Phosphatase 78 U/L (39-117); Anion Gap 13 (12-20); Aspartate Amino Transferase 19 U/L (5-31); Bilirubin Total 0.5 mg/dL (0.0-1.0); Blood Urea Nitrogen 19 mg/dL (9-16); Carbon Dioxide 26 mmol/L (22-29); Chloride 102 mmol/L (96-108); Estimated Glomerular Filt Rate > 60; Glucose Random 93 mg/dL (60-115); Potassium 4.7 mmol/L (3.3-5.1); Sodium 136 mmol/L (135-145)
[2021-11-27 15:04] LABS: Vitamin D 25-OH Total 54.4 ng/mL (>30)
== END 2021-11-27 09:45 | disposition home or self-care (01) ==
LOC: HO.LAB 09:44
PROVIDERS: PCP Internal Medicine; Visit Provider Nurse Practitioner Family
DX: M81.0 Age-related osteoporosis without current pathological fracture (principal)
CPT/HCPCS: 36415; 80053; 82306; 96372; 99212

== ENCOUNTER 2022-03-13 10:04 | Outpatient (REF) | payer MEDICARE, MEDICAID, SELFPAY ==
--- NOTE | ~2022-03-13 | MM_ITS ---
EXAMINATION: BONE DENSITOMETRY CLINICAL INDICATION: Age-related osteoporosis without current pathological fracture. COMPARISON: None (current study represents initial baseline exam). TECHNIQUE: Using a ActionBase DXA System (software version: 13.1) manufactured by [employer], dual-energy x-ray absorptiometry was performed of the lumbar spine and left hip. The images are of good technical quality. Summary results are attached. FINDINGS: AP SPINE L1-L4: BMD 0.759 g/cm2, Z-score -1.6, T-score -3.5, osteoporosis. LEFT FEMUR, NECK: BMD 0.884 g/cm2, Z-score 0.8, T-score -1.1, osteopenia. LEFT FEMUR, TOTAL: BMD 0.975 g/cm2, Z-score 1.5, T-score -0.3, normal. IDENTIFIED RISK FACTORS: Menopause, osteoporosis. HISTORY OF FRACTURE: None listed. MEDICATIONS: None listed. MM/XR DEXA axial skeleton IMPRESSION: 1. DIAGNOSIS: Osteoporosis based on the lowest T-score value of -3.5 in the lumbar spine applying World Health Organization criteria. 2. 10-YEAR FRACTURE RISK PREDICTION, FRAX: According to the guidelines, FRAX calculation should only be performed on patients in the osteopenia bone density category. Therefore, FRAX was not performed on this patient. 3. Treatment Recommendations: NOF guidelines recommend consideration for treatment in postmenopausal women and men age 50 and older presenting with the following: -A hip or vertebral (clinical or morphometric) fracture. -T-score less than or equal to -2.5 at the femoral neck or spine after appropriate evaluation to exclude secondary causes. -Low bone mass at the hip or spine and a 10-year fracture probability by FRAX of greater than or equal to 3% for hip fracture or greater than or equal to 20% for major osteoporotic fracture based on the [place] adapted WHO algorithm. 4. Other Recommendations: All treatment decisions require clinical judgment and consideration of individual patient factors, including patient preferences, comorbidities, previous drug use, risk factors not captured in the FRAX model (e.g. frailty, falls, vitamin D deficiency, increased bone turnover, interval significant decline in bone density) and possible under or overestimation of fracture risk by FRAX. Additional medical evaluation for secondary cause of low bone mineral density may be appropriate. FUTURE SCAN RECOMMENDATION: People with diagnosed cases of osteoporosis or at high risk for fracture should have regular bone mineral density tests. For patients eligible for Medicare, routine testing is allowed once every 2 years. The testing frequency can be increased to one year for patients who have rapidly progressing disease, those who are receiving or discontinuing medical therapy to restore bone mass, or have additional risk factors.
== END 2022-03-13 10:05 | disposition home or self-care (01) ==
LOC: HO.MAMMO 10:04
PROVIDERS: PCP Internal Medicine; Visit Provider Nurse Practitioner Family
DX: Z13.820 Encounter for screening for osteoporosis (principal); M81.0 Age-related osteoporosis without current pathological fracture; Z78.0 Asymptomatic menopausal state
CPT/HCPCS: 77080

== ENCOUNTER 2022-05-25 08:44 | Outpatient (REF) | payer MEDICARE, MEDICAID, SELFPAY ==
[2022-05-25 10:07] LABS: Alanine Aminotransferase 15 U/L (0-31); Albumin Level 4.2 g/dL (3.5-5.0); Alkaline Phosphatase 68 U/L (39-117); Anion Gap 15 (12-20); Aspartate Amino Transferase 18 U/L (5-31); Bilirubin Total 0.6 mg/dL (0.0-1.0); Blood Urea Nitrogen 28 mg/dL (9-16); Calcium 9.3 mg/dL (8.4-10.2); Carbon Dioxide 23 mmol/L (22-29); Chloride 102 mmol/L (96-108); Estimated Glomerular Filt Rate > 60; Glucose Random 106 mg/dL (60-115); Potassium 4.9 mmol/L (3.3-5.1); Sodium 135 mmol/L (135-145); Total Protein 7.1 g/dL (6.5-8.0)
== END 2022-05-25 08:45 | disposition home or self-care (01) ==
LOC: HO.LAB 08:44
PROVIDERS: PCP Internal Medicine; Visit Provider Nurse Practitioner Family
DX: M81.0 Age-related osteoporosis without current pathological fracture (principal)
CPT/HCPCS: 36415; 80053; 82306

== ENCOUNTER → 2022-05-26 10:01 | Outpatient (BNVA) | payer MEDICARE, MEDICAID, SELFPAY | PROVIDERS: PCP Internal Medicine; Visit Provider Nurse Practitioner Family | DX: M81.0 Age-related osteoporosis without current pathological fracture (principal) | CPT/HCPCS: 96372; 99212 ==

== ENCOUNTER 2022-06-05 11:47 | Emergency (ER) | payer MEDICARE, MEDICAID, SELFPAY ==
[2022-06-05 11:49] VITALS: PULSE 197; RESP 18; TEMP 36.4; O2SAT 100; BMI 32.1
--- NOTE | 2022-06-05 11:49 | ECG_ITS ---
Test Reason : SVT Blood Pressure : / mmHG Vent. Rate : 196 BPM Atrial Rate : 000 BPM P-R Int : 000 ms QRS Dur : 078 ms QT Int : 230 ms P-R-T Axes : 000 042 039 degrees QTc Int : 415 ms Supraventricular tachycardia Nonspecific ST and T wave abnormality Abnormal ECG No previous ECGs available Referred By: Generic ED Physician Electronically Signed By:RASHAUN CROSS
--- NOTE | 2022-06-05 11:56 | ED_ITS ---
HPI - General Adult General Chief complaint: Arrhythmia/Palpitations Stated complaint: Heart palpitations/Arm numbness Time Seen by Provider: 06/05/22 11:56 Source: patient Mode of arrival: ambulatory Limitations: no limitations History of Present Illness HPI narrative: Patient is a 72 year old female presenting to the emergency department today with palpitations. Patient states that starting 20 minutes ago, her heart began to race. Patient states that it started while she was eating breakfast which was a normal breakfast for her consisting of eggs and salami. Patient states her only medical history is hypertension for which she takes 20mg of Lisinopril. Patient denies any dizziness, lightheadedness, abdominal pain, nausea, vomiting, fever, chills, blurry vision, double vision, loss of vision, chest pain, difficulty breathing, shortness of breath, back pain, night sweats, pain with urination, increased urinary frequency, increased urinary urgency, blood in her urine or stool, syncope or a near syncopal episode, recent trauma or falls, bowel incontinence, bladder incontinence, bowel retention, bladder retention, or any other complaints at this time. Onset (ago): minute(s) (20) Radiation: non-radiation Severity: moderate Severity scale (1-10): 5 Relieving factors: none Exacerbating factors: none Associated symptoms: denies other symptoms Treatments prior to arrival: none Related Data Home Medications Medication Instructions Recorded Confirmed cyclobenzaprine 10 mg tablet 10 mg PO Q8H PRN Muscle spasm 05/26/22 Previous Rx's Medication Instructions Recorded denosumab 60 mg/mL subcutaneous 60 mg subcut [id number] #1 mL 10/13/21 syringe (Prolia) acetaminophen 300 mg-codeine 15 mg 1 tab PO BID PRN pain 30 days #45 12/08/21 tablet tabs Grab bar #1 ea 12/23/21 bath bench with arms #1 ea 12/23/21 showerhead handheld #1 ea 12/23/21 aspirin 81 mg tablet,delayed 81 mg PO DAILY 90 days #90 tabs 04/30/22 release cholecalciferol (vitamin D3) 25 25 mcg PO DAILY #90 tabs 04/30/22 mcg (1,000 unit) tablet (Vitamin D3) famotidine 20 mg tablet 20 mg PO BID 90 days #180 tabs 04/30/22 naproxen 500 mg tablet 500 mg PO BID PRN pain 30 days #60 04/30/22 tabs metoprolol succinate 25 mg 12.5 mg PO DAILY #30 tabs 06/05/22 tablet,extended release 24 hr Allergies Allergy/AdvReac Type Severity Reaction Status Date / Time tizanidine Allergy Intermediate dry mouth Verified 05/26/22 10:41 Review of Systems Constitutional: Constitutional: Reports no additional constitutional complaints, Denies chills, Denies fever(s) and Denies night sweats Eyes: Eyes: Reports no additional eye complaints, Denies blurry vision, Denies change in vision, Denies diplopia, Denies eye discharge, Denies loss of vision and Denies eye pain ENT: Denies dizziness Cardiovascular: Cardiovascular: Reports no additional cardiovascular complaints, Denies chest pain, Denies lightheadedness, Denies Loss of Conscious ness, Reports palpitations and Denies dyspnea Respiratory: Respiratory: Reports no additional respiratory complaints and Denies dyspnea Gastrointestinal: Gastrointestinal: Reports no additional gastrointestinal complaints, Denies abdominal pain, Denies melena, Denies hematochezia, Denies change in bowel habits and Denies change in stool character Genitourinary: Genitourinary: Denies hematuria, Denies urinary frequency, Denies dysuria, Denies urinary incontinence, Denies urinary hesitancy and Denies urinary urgency Musculoskeletal: Musculoskeletal: Reports no additional musculoskeletal complaints, Denies numbness and Denies tingling Neurologic: Denies dizziness, Denies loss of vision, Denies numbness and Denies tingling Psychiatric: Psychiatric: Reports no additional psychiatric complaints Endocrine: Endocrine: Reports no additional endocrine complaints and Reports palpitations Hematologic/Lymphatic: Hematologic/Lymphatic: Reports no additional hematologic/lymphatic complaints Allergic/Immunologic: Allergic/Immunologic: Reports no additional allergic/immunologic complaints [facility] Past Medical History Attestation statement: The following information was validated with the patient. 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) Alcohol intake: never Patient Tobacco Use Status: Never used Tobacco e-Cigarette/Vaping Use: Never Used Second Hand Smoke Exposure: No Use of substances other than those prescribed or required for medical reasons: No Advance Directives: Yes Advance Directives Information Provided: Yes Advance Directives on File: No service: No Current occupational status: disabled Sexual orientation: Straight/Heterosexual Gender identity: Female Cognitive needs: Yes Hearing needs: No Vision needs: No Physical Exam ED Vital Signs: Vital Signs - 24 hr 06/05/22 11:49 06/05/22 12:12 06/05/22 13:12 Temperature 97.6 F Pulse Rate 197 H 116 H 109 H Respiratory Rate 18 16 16 Blood Pressure 106/56 L 114/60 Pulse Oximetry 100 98 Oxygen Delivery Method Room Air Room Air 06/05/22 13:24 06/05/22 14:48 Temperature 97.8 F Pulse Rate 110 H 95 Respiratory Rate 16 Blood Pressure 107/57 L 114/65 Pulse Oximetry 99 Oxygen Delivery Method Room Air BMI result Body Mass Index 32.1 Const General: cooperative, no acute distress, alert and awake Nutritional Appearance: well nourished Orientation/consciousness: patient oriented x3 Limitations: no limitations HENMT Head: Yes normal to inspection and Yes atraumatic Ears: hearing grossly normal bilaterally and external ears normal General nose exam: Normal external nose present, no nasal discharge noted and no epistaxis Face and sinus: Yes normal facial exam, No abrasion and No laceration Mouth: Normal oral and palatal mucosa present, no drooling and no muffled voice Eyes General: appearance normal, both eyes and all related structures Periorbital: periorbital findings normal Eyelids: Yes eyelids normal Conjunctivae: conjunctivae normal Pupils: Equal, round and reactive pupils present EOM: EOMs intact bilaterally Neck Neck: Yes normal visual inspection, Yes full ROM and Yes no lymphadenopathy Chest Chest palpation & inspection: normal inspection of the chest Resp Effort & Inspection: normal respiratory effort and able to speak in complete sentences Auscultation: clear to auscultation bilaterally Cardio Rate: tachycardic Rhythm: regular rhythm GI Inspection: Yes normal to inspection Neuro General: patient oriented x3 and moves all extremities Cranial nerves: Yes Equal, round and reactive pupils present Cognition (Neuro): normal cognition Motor exam (neuro): 5/5 motor strength present throughout Sensory Exam: Normal double simultaneous stimulation for sensation Coordination: [id number] test normal Extrem General: Yes normal to inspection, Yes full ROM and Yes capillary refill normal Psych Appearance: grossly normal Mental Status: mental status grossly normal Affect: normal affect Attitude: cooperative Thought process: Normal thought process present Thought content: Normal thought content present Insight: Good insight present (Psych) Medical Decision Making MDM Narrative Medical decision making narrative: Patient is a 72 year old female presenting to the emergency department today with palpitations. Patient's physical exam showed significant tachycardia but was otherwise unremarkable. Patient's blood work was unremarkable. Patient's initial EKG showed SVT with a rate of 197bpm. Patient was sat up at the bed side and instructed to take a deep breath, hold it, and bear down. Patient did so and brought her heart rate down to 110 bpm. Patient's repeat EKG showed sinus tachycardia with a rate of 112. Patient was given PO Metoprolol while in the department which brought her rate down to 90. I explained my physical exam findings as well as all test results to the patient and the patient's niece. I answered all questions asked by the patient and the patient's niece. I explained to the patient and the patient's niece that she should stop taking the lisinopril she is prescribed and switch to metoprolol ER. I stressed the importance of the patient taking her medication as prescribed. I stressed the importance of the patient following up with her primary care provider and a oyster culturist. I stressed the importance of the patient returning to the emergency department immediately if her symptoms were to worsen or if she were to develop any dizziness, shortness of breath, difficulty breathing, chest pain, blurry vision, loss of vision, nausea, vomiting, abdominal pain, fever, chills, back pain, or any other complaints. Patient and the patient's niece verbalized agreement and understanding with this treatment plan and discharge. Medical Records Medical records reviewed: Yes I reviewed the patient's medical records. Lab Data Lab results reviewed: Yes I reviewed the patient's lab results. Result diagrams: 06/05/22 12:20 06/05/22 12:20 Labs: Lab Results 06/05/22 06/05/22 06/05/22 Range/Units 12:20 12:20 12:20 WBC 7.4 (4.8-10.8) X10*3/uL RBC 4.31 (4.20-5.50) X10*6/uL Hgb 12.6 (12.0-16.0) g/dl Hct 38.8 (37.0-47.0) % MCV 90.0 (80.0-98.0) fL MCH 29.2 (27.0-33.0) pg MCHC 32.5 (31.0-35.0) g/dl RDW 13.5 (11.0-16.0) % Plt Count 319 (160-400) X10*3/uL MPV 10.5 (9.4-12.3) fL Immature Gran % (Auto) 0.4 (0.0-0.4) % Neut % (Auto) 65.2 (45-73) % Lymph % (Auto) 25.1 (20-40) % [place] % (Auto) 7.3 (2-11) % Eos % (Auto) 1.6 (0-4) % Baso % (Auto) 0.4 (0-2) % Lymph # (Auto) 1.9 (1.2-4.9) X10*3/uL [place] # (Auto) 0.5 (0.1-1.2) X10*3/uL Eos # (Auto) 0.1 (0.0-0.4) X10*3/uL Baso # (Auto) 0.0 (0.0-0.2) X10*3/uL Abs Immat Gran (auto) 0.03 (0.00-0.03) X10*3/uL Absolute Neuts (auto) 4.8 (2.0-8.3) x10*3/uL Absolute Nucleated RBC 0.000 (0.0-0.012) X10*3/uL Nucleated RBC % (auto) 0.0 (0.0-0.2) /100WBC Sodium 137 (135-145) mmol/L Potassium 4.1 (3.3-5.1) mmol/L Chloride 104 (96-108) mmol/L Carbon Dioxide 22 (22-29) mmol/L Anion Gap 15 (12-20) BUN 25 H (9-16) mg/dL Creatinine 0.98 (0.5-1.4) mg/dL Estim Creat Clear Calc 34.8 Estimated GFR 56 Random Glucose 212 H (60-115) mg/dL Calcium 9.2 (8.4-10.2) mg/dL Total Bilirubin 0.4 (0.0-1.0) mg/dL Direct Bilirubin 0.2 (0.0-0.5) mg/dL AST 16 (5-31) U/L ALT 14 (0-31) U/L Alkaline Phosphatase 67 (39-117) U/L Troponin I High Sens < 3.5 (<3.5-17.0) ng/L Total Protein 6.7 (6.5-8.0) g/dL Albumin 4.1 (3.5-5.0) g/dL Lipase 25 (8-78) U/L TSH 1.58 (0.32-4.0) uIU/mL ECG Data Attestation: I personally reviewed and interpreted this ECG as follows: Prior ECG tracings: not available for review Interpretation: Vent. Rate: 196 BPM ? ? Atrial Rate: 000 BPM P-R Int: 000 ms? QRS Dur: 078 ms QT Int: 230 ms ? ? ? P-R-T Axes: 000 042 039 degrees QTc Int: 415 ms ? Supraventricular tachycardia Nonspecific ST and T wave abnormality Abnormal ECG No previous ECGs available Electronically Signed By:ABDIAS CROSS Dictated By: Abdias Simental DO Signed By: Electronically signed by Abdias Simental DO 06/05/22 1329 Repeat EKG: Vent. Rate: 112 BPM ? ? Atrial Rate: 112 BPM P-R Int: 124 ms? QRS Dur: 084 ms QT Int: 334 ms ? ? ? P-R-T Axes: 043 051 016 degrees QTc Int: 455 ms ? Sinus tachycardia Otherwise normal ECG When compared with ECG of 05-JUN-2022 11:51, Vent. rate has decreased BY? [address] no longer depressed in Lateral leads Nonspecific T wave abnormality no longer evident in Lateral leads ? Electronically Signed By:ABDIAS CROSS Dictated By: Abdias Simental DO Signed By: Electronically signed by Abdias Simental DO 06/05/22 1329 Critical Care Time Critical Care Time Critical Care Time: Yes Total Critical Care Time: 30 Attestation: I spent 30 minutes of Critical Care Time with this patient. This does not include time spent on separately reported billable procedures. Discharge Plan Discharge Clinical Impression: SVT (supraventricular tachycardia) Patient Disposition: Home, Self-Care Instructions: Supraventricular Tachycardia (ED) Additional Instructions: Follow up with your primary care provider and a oyster culturist. Return to the emergency department immediately if your symptoms worsen or if you develop any dizziness, shortness of breath, difficulty breathing, chest pain, blurry vision, loss of vision, nausea, vomiting, abdominal pain, fever, chills, back pain, or any other complaints. Prescriptions: New metoprolol succinate 25 mg tablet extended release 24 hr 12.5 mg PO DAILY Qty: 30 0RF Discontinued lisinopril 20 mg tablet 20 mg PO DAILY 90 Days Qty: 90 3RF No Action Prolia 60 mg/mL syringe 60 mg subcut [id number] Qty: 1 1RF (DME) bath bench with arms See Rx Instructions .Route .MEDSUPPLY Qty: 1 0RF Rx Instructions: As directed (DME) showerhead handheld See Rx Instructions .Route .MEDSUPPLY Qty: 1 0RF Rx Instructions: As directed (DME) Grab bar Misc See Rx Instructions .Route Qty: 1 0RF Rx Instructions: As directed acetaminophen-codeine 300-15 mg tablet 1 tab PO BID PRN (Reason: pain) 30 Days Qty: 45 0RF aspirin 81 mg tablet,delayed release (DR/EC) 81 mg PO DAILY 90 Days Qty: 90 3RF cholecalciferol (vitamin D3) [Vitamin D3] 25 mcg (1,000 unit) tablet 25 mcg PO DAILY Qty: 90 3RF famotidine 20 mg tablet 20 mg PO BID 90 Days Qty: 180 2RF naproxen 500 mg tablet 500 mg PO BID PRN (Reason: pain) 30 Days Qty: 60 1RF cyclobenzaprine 10 mg tablet 10 mg PO Q8H PRN (Reason: Muscle spasm) Referrals: [facility] [Provider Group] (Call to establish and follow up with a oyster culturist.) Angelina Ribeiro MD [Primary Care Provider] - Interventions: ED Discharge Assessment Last Done: 06/05/22 14:48 Discharge Date/Time: 06/05/22 14:49 Print Language: [place]
--- NOTE | 2022-06-05 12:02 | ECG_ITS ---
Test Reason : tachycardia Blood Pressure : / mmHG Vent. Rate : 112 BPM Atrial Rate : 112 BPM P-R Int : 124 ms QRS Dur : 084 ms QT Int : 334 ms P-R-T Axes : 043 051 016 degrees QTc Int : 455 ms Sinus tachycardia Otherwise normal ECG When compared with ECG of 05-JUN-2022 11:51, Vent. rate has decreased BY [address] no longer depressed in Lateral leads Nonspecific T wave abnormality no longer evident in Lateral leads Referred By: Lalita Bingham Electronically Signed By:RASHAUN CROSS
[2022-06-05 12:12] VITALS: BP 106/56; PULSE 116; RESP 16; O2SAT 98
--- NOTE | 2022-06-05 12:15 | PC.NURSE ---
Pt presents to ED with HR 190s, feeling dizzy and heart palpitations. Valsalva maneuver attempted with Dr Solis at bedside and pt HR improved, now 115. Pt feeling better, offers no complaints. Skin pwd.
[2022-06-05 12:24] LABS: MANUAL DIFF FLAG NO
[2022-06-05 12:27] LABS: Basophils Percent Auto 0.4 % (0-2); Eosinophils Absolute Auto 0.1 X10*3/uL (0.0-0.4); Eosinophils Percent Auto 1.6 % (0-4); Hematocrit 38.8 % (37.0-47.0); Hemoglobin 12.6 g/dl (12.0-16.0); Imm Gran Abs Auto 0.03 X10*3/uL (0.00-0.03); Imm Gran Pct Auto 0.4 % (0.0-0.4); Lymphocytes Absolute Auto 1.9 X10*3/uL (1.2-4.9); Lymphocytes Percent Auto 25.1 % (20-40); Mean Corpuscular HGB Conc 32.5 g/dl (31.0-35.0); Mean Corpuscular Hemoglobin 29.2 pg (27.0-33.0); Mean Platelet Volume 10.5 fL (9.4-12.3); Monocytes Absolute Auto 0.5 X10*3/uL (0.1-1.2); Monocytes Percent Auto 7.3 % (2-11); Neutrophils Absolute Auto 4.8 x10*3/uL (2.0-8.3); Neutrophils Percent Auto 65.2 % (45-73); Platelet Count 319 X10*3/uL (160-400); Red Blood Count 4.31 X10*6/uL (4.20-5.50); Red Cell Distribution Width 13.5 % (11.0-16.0); White Blood Count 7.4 X10*3/uL (4.8-10.8)
[2022-06-05 12:41] LABS: Alanine Aminotransferase 14 U/L (0-31); Albumin Level 4.1 g/dL (3.5-5.0); Alkaline Phosphatase 67 U/L (39-117); Anion Gap 15 (12-20); Aspartate Amino Transferase 16 U/L (5-31); Bilirubin Direct 0.2 mg/dL (0.0-0.5); Bilirubin Total 0.4 mg/dL (0.0-1.0); Blood Urea Nitrogen 25 mg/dL (9-16); Calcium 9.2 mg/dL (8.4-10.2); Carbon Dioxide 22 mmol/L (22-29); Chloride 104 mmol/L (96-108); Creatinine Clr Calc Pharmacy 34.8; Estimated Glomerular Filt Rate 56; Glucose Random 212 mg/dL (60-115); Lipase 25 U/L (8-78); Potassium 4.1 mmol/L (3.3-5.1); Sodium 137 mmol/L (135-145); Total Protein 6.7 g/dL (6.5-8.0)
[2022-06-05 12:47] LABS: Troponin-I High Sensitivity < 3.5 ng/L (<3.5-17.0)
[2022-06-05 13:12] VITALS: BP 114/60; PULSE 109; RESP 16
--- NOTE | 2022-06-05 13:13 | PC.NURSE ---
Sinus tach continues on monitor rate 110, offers no complaints. Niece remains at bedside.
[2022-06-05 13:16] LABS: Thyroid Stimulating Hormone 1.58 uIU/mL (0.32-4.0)
[2022-06-05 13:24] VITALS: BP 107/57; PULSE 110; RESP 16; TEMP 36.6; O2SAT 99
[2022-06-05] MEDS: Metoprolol Tartrate 12.5 MG HALFTAB PO (13:49)
[2022-06-05 14:48] VITALS: BP 114/65; PULSE 95
== END 2022-06-05 14:49 | disposition home or self-care (01) ==
PROVIDERS: Emergency Provider Emergency Medicine; PCP Internal Medicine
DX: I47.1 Supraventricular tachycardia (principal); R94.31 Abnormal electrocardiogram [ECG] [EKG]; Z79.899 Other long term (current) drug therapy
CPT/HCPCS: 36415; 80053; 82248; 83690; 84443; 84484; 85025; 93005; 99281; 99283; 99285

== ENCOUNTER → 2022-06-17 08:57 | Outpatient (BNVA) | payer MEDICARE, MEDICAID, SELFPAY | PROVIDERS: PCP Internal Medicine; Visit Provider Internal Medicine Cardiovascular Disease | DX: R00.2 Palpitations (principal); I47.1 Supraventricular tachycardia | CPT/HCPCS: 93005; 99202 ==

== ENCOUNTER → 2022-07-06 07:57 | Outpatient (REF) | payer OTHER, SELFPAY ==
--- NOTE | 2022-07-06 08:01 | HM_ITS ---
Conclusion: 1. Patient was monitored for total period of 6 days and 3 hours 2. Baseline was normal sinus rhythm with average heart rate of 77 beats per minute 3. No significant pauses or bradycardia noted 4. Rare ectopy noted 5. No patient reported events MTDD
--- NOTE | 2022-07-06 08:01 | CA_ITS ---
Transthoracic Echocardiogram Patient (Last, First, Middle): Katty Kebede, Gender: Female Date of : 1950 Age: 72 Procedure Date: 07/06/2022 Procedure Type: Transthoracic Echocardiogram Location: OP Height: 137.16 cm Weight: 60.33 kg BSA: 1.45 m2 Heart Rate: 77 bpm BP: 126 / 70 mmHg Senior Java [email or web address] Developer: SB Referring MD: Jadon Tejeda MD Symptoms: R00.2 - Palpitations Study Quality: Adequate ECG Rhythm: Sinus Conclusions: - Normal left ventricular size and systolic function. The visually estimated ejection fraction is between 55-60%. - There is moderate septal asymmetric hypertrophy. - Normal right ventricular cavity size and systolic function. - No significant valvular or pericardial pathology. Findings Left Ventricle Normal left ventricular size and systolic function. The visually estimated ejection fraction is between 55-60%. There is no evidence of regional wall motion abnormalities. Diastolic function is normal for age. There is moderate septal asymmetric hypertrophy. Right Ventricle Normal right ventricular cavity size and systolic function. Atria Both atria are normal in size. Aortic Valve Normal aortic valve structure and function. There is no aortic valve stenosis. There is no aortic valve regurgitation. Mitral Valve The mitral valve appears normal. There is trace mitral valve regurgitation. There is no mitral valve stenosis. Pulmonic Valve The pulmonic valve is normal. There is no pulmonic valve regurgitation. Tricuspid Valve Normal tricuspid valve structure. There is trace tricuspid valve regurgitation. Normal right atrial pressure. There is no evidence of pulmonary hypertension. Great Vessels All visible segments of the aorta are normal in size. The visualized portions of the pulmonary artery and branches are normal. Venous The inferior vena cava is normal in size and collapses greater than 50% with inspiration. Pericardium/Pleural There is no evidence of pericardial effusion. Prior Study Comparison No prior study available for comparison. Measurements 2D Linear Measurements IVSd: 0.61 0.6-0.9/0.6-1.0 cm LVIDd: 4.03 3.9-5.3/4.2-5.9 cm LVIDd Index: 2.78 2.4-3.2/2.2-3.1 cm/m2 LVIDs: 2.55 2.0-3.6 cm LVPWd: 0.73 0.7-1.1 cm LA Diam: 3.20 2.7-3.8/3.0-4.0 cm LAIDs Index: 2.21 1.5-2.3 cm/m2 LV Mass: 93.43 67-162/88-224 g LV Mass Index: 64.43 43-95/49-115 g/m2 LVOT Diam: 1.90 3.0+(-)1.3 cm 2D Systolic Function EF 4C: 53.60 >55% EF 2C: 61.20 >55% EF BiP: 56.90 >55% Mitral Valve MV Pk E: 0.73 MV PK A: 1.04 MV Decel Time: 204.00 E/A: 0.70 E'Lateral: 7.40 E'Medial: 6.31 E/E' Med: 11.50 E/E' Lat: 9.80 PHT: 60.00 MVA PHT: 3.67 Decel Howard: 3.57 Aortic Valve AoV Pk Cory: 1.36 AoV Pk Grad: 7.00 JOSSE: 2.32 LVOT LVOT Pk Cory: 1.11 LVOT Mn Cory: 0.73 LVOT VTI: 0.24 LVOT Pk Grad: 5.00 LVOT Mn Grad: 2.00 LVOT Diam: 1.90 LVOT Area: 2.84 Diastolic Function MV Pk E: 0.73 MV Pk A: 1.04 E/A: 0.70 E'Medial: 6.31 E/E' Med: 11.50 E' Laterial: 7.40 E/E' Lat: 9.80 Right Ventricle TAPSE (mm): 17.50 TVS' Cory: 8.20 Tricuspid Valve TR Pk Cory: 2.05 TR Pk Grad: 17.00 RA Press: 8.00 RVSP: 25.00 Great Vessels Aorta Sinus of Valsalva: 2.20 2.0-3.5 cm Ao Asc: 2.50 2.1-3.4 cm Pulmonary Valve PV Pk Cory: 1.32 Peak PV Grad: 7.00 Updated in Other Vendor System with Status of Final Jadon Tejeda MD electronically signed on 07/06/2022 10:38:23 AM with status of Final
== END ==
LOC: HO.CARD 07:57
PROVIDERS: PCP Internal Medicine; Visit Provider Internal Medicine Cardiovascular Disease
DX: R00.2 Palpitations (principal)
CPT/HCPCS: 93242; 93306

== ENCOUNTER 2022-07-06 12:09 | Outpatient (REF) | payer OTHER, SELFPAY | END 2022-07-06 12:10 | disposition home or self-care (01) | LOC: HO.MAMMO 12:09 | PROVIDERS: PCP Internal Medicine; Visit Provider Internal Medicine | DX: Z13.89 Encounter for screening for other disorder (principal) ==

== ENCOUNTER 2022-07-14 09:52 | Outpatient (REF) | payer OTHER, SELFPAY ==
--- NOTE | ~2022-07-14 | MM_ITS ---
EXAMINATION: MM SCREENING DIGITAL BREAST TOMOSYNTHESIS, BILATERAL CLINICAL INFORMATION: Screening. Asymptomatic. COMPARISON: Mammography: June 02, 2021 and studies dating back to March 10, 2016 TECHNIQUE: Digital breast tomosynthesis is performed in both the craniocaudal and mediolateral oblique views along with computer-aided detection (CAD). Synthesized 2D images are generated from the tomosynthesis. FINDINGS: The breasts are almost entirely fatty (ACR BI-RADS breast composition Category a). There are no significant masses, abnormal calcifications, or other abnormalities. MM/MM tomosynthesis screening BI IMPRESSION: No significant changes from prior exam. ASSESSMENT: BI-RADS 1: Negative RECOMMENDATION: Routine annual mammography screening. This patient's information was entered into a reminder system with a target due date for their next mammogram.
== END 2022-07-14 09:53 | disposition home or self-care (01) ==
LOC: HO.MAMMO 09:52
PROVIDERS: Visit Provider Internal Medicine
DX: Z12.31 Encounter for screening mammogram for malignant neoplasm of breast (principal)
CPT/HCPCS: 77063; 77067

== ENCOUNTER → 2022-09-24 12:45 | Outpatient (BNVA) | payer OTHER, SELFPAY | PROVIDERS: PCP Internal Medicine; Referring Provider Internal Medicine; Visit Provider Internal Medicine Cardiovascular Disease | DX: I47.1 Supraventricular tachycardia (principal); I10 Essential (primary) hypertension | CPT/HCPCS: 99212 ==

== ENCOUNTER 2022-11-06 08:04 | Outpatient (REF) | payer OTHER, SELFPAY ==
[2022-11-06 09:18] LABS: Alanine Aminotransferase 15 U/L (0-31); Alkaline Phosphatase 84 U/L (39-117); Anion Gap 15 (12-20); Aspartate Amino Transferase 20 U/L (5-31); Bilirubin Total 0.7 mg/dL (0.0-1.0); Blood Urea Nitrogen 24 mg/dL (9-16); Calcium 9.3 mg/dL (8.4-10.2); Carbon Dioxide 25 mmol/L (22-29); Chloride 104 mmol/L (96-108); Cholesterol 236 mg/dL; Estimated Glomerular Filt Rate > 60; Glucose Random 115 mg/dL (60-115); HDL Cholesterol 79 mg/dL; LDL Cholesterol Calculated 143 mg/dl; Potassium 4.8 mmol/L (3.3-5.1); Sodium 139 mmol/L (135-145); Total Protein 7.2 g/dL (6.5-8.0); Triglycerides 71 mg/dL
[2022-11-06 09:40] LABS: Vitamin D 25-OH Total 39.4 ng/mL (>30)
== END 2022-11-06 08:05 | disposition home or self-care (01) ==
LOC: HO.LAB 08:04
PROVIDERS: Nurse Practitioner Family; PCP Internal Medicine; Visit Provider Internal Medicine
DX: M81.0 Age-related osteoporosis without current pathological fracture (principal); E78.5 Hyperlipidemia, unspecified
CPT/HCPCS: 36415; 80053; 80061; 82306

== ENCOUNTER → 2022-11-24 10:15 | Outpatient (BNVA) | payer OTHER, SELFPAY | PROVIDERS: PCP Internal Medicine; Visit Provider Nurse Practitioner Family | DX: M81.0 Age-related osteoporosis without current pathological fracture (principal); E55.9 Vitamin D deficiency, unspecified; Z79.620 Long term (current) use of immunosuppressive biologic | CPT/HCPCS: 96372; 99212 ==

== ENCOUNTER 2023-01-27 08:08 | Outpatient (REF) | payer OTHER, SELFPAY ==
[2023-01-27 09:24] LABS: Alanine Aminotransferase 13 U/L (0-31); Albumin Level 4.1 g/dL (3.5-5.0); Alkaline Phosphatase 78 U/L (39-117); Anion Gap 14 (12-20); Aspartate Amino Transferase 18 U/L (5-31); Bilirubin Total 0.8 mg/dL (0.0-1.0); Blood Urea Nitrogen 16 mg/dL (9-16); Calcium 9.5 mg/dL (8.4-10.2); Carbon Dioxide 25 mmol/L (22-29); Chloride 107 mmol/L (96-108); Estimated Glomerular Filt Rate > 60; Glucose Fasting 106 mg/dL (60-99); Potassium 4.7 mmol/L (3.3-5.1); Sodium 141 mmol/L (135-145); Total Protein 7.2 g/dL (6.5-8.0)
[2023-01-27 09:41] LABS: Vitamin D 25-OH Total 42.1 ng/mL (>30)
== END 2023-01-27 08:09 | disposition home or self-care (01) ==
LOC: HO.LAB 08:08
PROVIDERS: PCP Internal Medicine; Visit Provider Internal Medicine
DX: I10 Essential (primary) hypertension (principal); E55.9 Vitamin D deficiency, unspecified
CPT/HCPCS: 36415; 80053; 82306

== ENCOUNTER 2023-03-15 09:55 | Day surgery (SDC) | payer OTHER, SELFPAY ==
[2023-03-15] VITALS (10 sets, daily range): BP systolic 99–144; BP diastolic 54–107; PULSE 66–80; RESP 12–20; TEMP 36.1–37; O2SAT 98–100; BMI 29.8
--- NOTE | 2023-03-15 11:00 | ED_ITS ---
HPI - General Adult General Chief complaint: Skin/Abscess/Foreign Body Time Seen by Provider: 03/15/23 11:00 Source: patient and family (son) Mode of arrival: ambulatory Limitations: language barrier History of Present Illness HPI narrative: Patient is a 73 year old assigned female at with a history of HTN and GERD presenting to the emergency department today with a piece of steak lodged in her throat. Patient states that this morning she was attempting to eat steak when a piece got lodged. Patient denies any dizziness, lightheadedness, abdominal pain, nausea, vomiting, fever, chills, blurry vision, double vision, loss of vision, chest pain, difficulty breathing, shortness of breath, back pain, night sweats, pain with urination, increased urinary frequency, increased urinary urgency, blood in her urine or stool, syncope or a near syncopal episode, recent trauma or falls, bowel incontinence, bladder incontinence, bowel retention, bladder retention, or any other complaints at this time. Onset (ago): minute(s) Severity: moderate Severity scale (1-10): 4 Relieving factors: none Exacerbating factors: none Associated symptoms: nausea/vomiting Treatments prior to arrival: none Related Data Home Medications Medication Instructions Recorded Confirmed cyclobenzaprine 10 mg tablet 10 mg PO Q8H PRN Muscle spasm 05/26/22 03/15/23 famotidine 20 mg tablet 20 mg PO DAILY PRN Heartburn 03/15/23 03/15/23 Previous Rx's Medication Instructions Recorded Grab bar #1 ea 12/23/21 bath bench with arms #1 ea 12/23/21 showerhead handheld #1 ea 12/23/21 metoprolol succinate 25 mg 25 mg PO DAILY #90 tabs 09/15/22 tablet,extended release 24 hr denosumab 60 mg/mL subcutaneous 60 mg subcut [id number] #1 mL 10/07/22 syringe (Prolia) aspirin 81 mg tablet,delayed 81 mg PO DAILY 90 days #90 tabs 02/15/23 release cholecalciferol (vitamin D3) 25 25 mcg PO DAILY #90 tabs 02/15/23 mcg (1,000 unit) tablet (Vitamin D3) naproxen 500 mg tablet 500 mg PO BID PRN pain 30 days #60 02/15/23 tabs Allergies Allergy/AdvReac Type Severity Reaction Status Date / Time tizanidine Allergy Intermediate dry mouth Verified 03/15/23 11:05 Review of Systems Constitutional: Constitutional: Reports no additional constitutional complaints, Denies chills, Denies fever(s) and Denies night sweats Eyes: Eyes: Reports no additional eye complaints, Denies blurry vision, Denies change in vision, Denies diplopia, Denies eye discharge, Denies loss of vision and Denies eye pain ENT: Denies dizziness Comments: food lodged in throat Cardiovascular: Cardiovascular: Reports no additional cardiovascular complaints, Denies chest pain, Denies lightheadedness, Denies Loss of Consciousness and Denies dyspnea Respiratory: Respiratory: Reports no additional respiratory complaints and Denies dyspnea Gastrointestinal: Gastrointestinal: Reports no additional gastrointestinal complaints, Denies abdominal pain, Denies melena, Denies hematochezia, Denies change in bowel habits and Denies change in stool character Genitourinary: Genitourinary: Denies hematuria, Denies urinary frequency, Denies dysuria, Denies urinary incontinence, Denies urinary hesitancy and Denies urinary urgency Musculoskeletal: Musculoskeletal: Reports no additional musculoskeletal complaints, Denies numbness and Denies tingling Neurologic: Denies dizziness, Denies loss of vision, Denies numbness and Denies tingling Psychiatric: Psychiatric: Reports no additional psychiatric complaints Endocrine: Endocrine: Reports no additional endocrine complaints Hematologic/Lymphatic: Hematologic/Lymphatic: Reports no additional hematologic/lymphatic complaints Allergic/Immunologic: Allergic/Immunologic: Reports no additional allergic/immunologic complaints PMFSH Past Medical History Attestation statement: The following information was validated with the patient. (all information validated with the patient's son) Source: old records reviewed, obtained from family (patient's son provided additional history and confirmed the history provided by the patient.) and nursing notes reviewed Medical History Compression fracture Essential hypertension GERD (gastroesophageal reflux disease) Hypovitaminosis D Low back pain Obese Osteoarthritis Osteoporosis Polyarthralgia Vitamin D deficiency Surgical History History of tubal ligation Hx of colonoscopy Family History Family History Father Cancer Mother Cancer Son Past heart attack Social History Social History Household Members: None Housing: Apartment Are you a primary interior plant caretaker to a significant other at home: No 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) Alcohol intake: never Patient Tobacco Use Status: Never used Tobacco Smoked in Last 30 Days: No e-Cigarette/Vaping Use: Never Used Second Hand Smoke Exposure: No Use of substances other than those prescribed or required for medical reasons: No Advance Directives: No Advance Directives Information Provided: Yes service: No Current occupational status: disabled Sexual orientation: Straight/Heterosexual Gender identity: Female Cognitive needs: Yes Hearing needs: No Vision needs: No Physical Exam ED Vital Signs: Vital Signs - 24 hr 03/15/23 09:55 03/15/23 11:22 03/15/23 13:58 Temperature 98.6 F 98.1 F 97.8 F Pulse Rate 80 67 70 Respiratory Rate 16 18 14 Blood Pressure 137/95 H 138/107 H 139/61 Pulse Oximetry 98 98 100 Oxygen Delivery Method Room Air Room Air Room Air 03/15/23 15:45 Temperature 97.8 F Pulse Rate 77 Respiratory Rate 20 Blood Pressure 99/78 Pulse Oximetry 98 Oxygen Delivery Method Room Air BMI result Body Mass Index 29.8 Const General: cooperative, no acute distress, alert and awake Nutritional Appearance: well nourished Orientation/consciousness: patient oriented x3 Limitations: no limitations HENMT Head: Yes normal to inspection and Yes atraumatic Ears: hearing grossly normal bilaterally and external ears normal General nose exam: Normal external nose present, no nasal discharge noted and no epistaxis Face and sinus: Yes normal facial exam, No abrasion and No laceration Mouth: Normal oral and palatal mucosa present, no drooling and no muffled voice Eyes General: appearance normal, both eyes and all related structures Periorbital: periorbital findings normal Eyelids: Yes eyelids normal Conjunctivae: conjunctivae normal Pupils: Equal, round and reactive pupils present EOM: EOMs intact bilaterally Neck Neck: Yes normal visual inspection, Yes full ROM and Yes no lymphadenopathy Chest Chest palpation & inspection: normal inspection of the chest Resp Effort & Inspection: normal respiratory effort and able to speak in complete sentences GI Other: vomiting Inspection: Yes normal to inspection Palpation (GI): Soft to palpation, not firm, nontender, no guarding and not rigid Neuro General: patient oriented x3 and moves all extremities Cranial nerves: Yes Equal, round and reactive pupils present Cognition (Neuro): normal cognition Motor exam (neuro): 5/5 motor strength present throughout Sensory Exam: Normal double simultaneous stimulation for sensation Coordination: [id number] test normal Extrem General: Yes normal to inspection, Yes full ROM and Yes capillary refill normal Psych Appearance: grossly normal Mental Status: mental status grossly normal Affect: normal affect Attitude: cooperative Thought process: Normal thought process present Thought content: Normal thought content present Insight: Good insight present (Psych) Medications Administered Discontinued Medications Generic Name Dose Route Start Last Admin Trade Name Jennifer PRN Reason Stop Dose Admin Glucagon 1 mg 03/15/23 11:02 03/15/23 10:05 Glucagon,Human Recombinant 1 Mg/Ml Vial IM 03/15/23 11:03 1 mg ONCE ONE Administration Nitroglycerin 0.4 mg 03/15/23 11:02 03/15/23 10:00 Nitroglycerin 0.4 Mg Tab.Subl SUBLINGUAL 03/15/23 11:03 0.4 mg ONCE ONE Administration Medical Decision Making Medical Decision Making [facility] Narrative: Patient is a 73 year old assigned female at with a history of GERD and HTN presenting to the emergency department today with a piece of steak stuck in her throat. Patient's physical exam showed an individual actively vomiting and attempting to clear her throat. Patient's blood work is unremarkable. Patient was given sublingual nitro dissoled in water and IM Glucagon which did not help her. I called and spoke with GI pilot control operator who recommended the patient go for an endoscopy. I explained my physical exam findings as well as GIs recommendations to the patient and the patient's son. I answered all questions asked by the patient and the patient's son. Patient and the patient's son verbalized agreement and understanding with this treatment plan and endoscopy. Differential Diagnosis Differential Diagnoses: The differential diagnosis associated with the presentation includes Retained food bolus Retained foriegn body Admission/Observation Consideration of admission/observation: Escalation of care including admission/observation considered Patient will be getting an endoscopy. Consult Healthcare Provider Management of the patient was discussed with: Occupational Medicine Specialist (spoke to GI as noted in the MDM portion of this chart. ) Lab Data [facility] Lab Attestation statement: I reviewed the patient's lab results. My interpretation of these studies and their corresponding values is that they are grossly normal. 03/15/23 11:11 03/15/23 12:19 Labs: Lab Results 03/15/23 03/15/23 Range/Units 11:11 12:19 WBC 9.4 (4.8-10.8) X10*3/uL RBC 4.51 (4.20-5.50) X10*6/uL Hgb 13.3 (12.0-16.0) g/dl Hct 40.4 (37.0-47.0) % MCV 89.6 (80.0-98.0) fL MCH 29.5 (27.0-33.0) pg MCHC 32.9 (31.0-35.0) g/dl RDW 14.0 (11.0-16.0) % Plt Count 282 (160-400) X10*3/uL MPV 10.5 (9.4-12.3) fL Immature Gran % (Auto) 0.4 (0.0-0.4) % Neut % (Auto) 77.4 H (45-73) % Lymph % (Auto) 14.0 L (20-40) % Guadalupe % (Auto) 6.3 (2-11) % Eos % (Auto) 1.7 (0-4) % Baso % (Auto) 0.2 (0-2) % Lymph # (Auto) 1.3 (1.2-4.9) X10*3/uL [place]upe # (Auto) 0.6 (0.1-1.2) X10*3/uL Eos # (Auto) 0.2 (0.0-0.4) X10*3/uL Baso # (Auto) 0.0 (0.0-0.2) X10*3/uL Abs Immat Gran (auto) 0.04 H (0.00-0.03) X10*3/uL Absolute Neuts (auto) 7.3 (2.0-8.3) x10*3/uL Absolute Nucleated RBC 0.000 (0.0-0.012) X10*3/uL Nucleated RBC % (auto) 0.0 (0.0-0.2) /100WBC Sodium 141 (135-145) mmol/L Potassium 3.9 (3.3-5.1) mmol/L Chloride 108 (96-108) mmol/L Carbon Dioxide 24 (22-29) mmol/L Anion Gap 13 (12-20) BUN 22 H (9-16) mg/dL Creatinine 0.71 (0.5-1.4) mg/dL Estim Creat Clear Calc 55.3 Estimated GFR > 60 Random Glucose 102 (60-115) mg/dL Calcium 9.7 (8.4-10.2) mg/dL Total Bilirubin 0.6 (0.0-1.0) mg/dL AST 15 (5-31) U/L ALT 11 (0-31) U/L Alkaline Phosphatase 64 (39-117) U/L Total Protein 6.6 (6.5-8.0) g/dL Albumin 3.6 (3.5-5.0) g/dL Independent Historian Clinical information obtained from an independent historian. History obtained from or confirmed by: Other (patient's son provided additional history and confirmed the history provided by the patient. ) Chronic Conditions Patient?s care impacted by: Hypertension Critical Care Time Critical Care Time Critical Care Time: Yes Total Critical Care Time: 30 Attestation: I spent 30 minutes of Critical Care Time with this patient. This does not include time spent on separately reported billable procedures. Discharge Plan Discharge Clinical Impression: Food bolus obstruction of intestine, Nausea & vomiting Patient Disposition: Xfer Other Transfer Details: Endoscopy Interventions: ED Discharge Assessment Last Done: 03/15/23 15:54 Discharge Date/Time: 03/15/23 15:55
--- NOTE | 2023-03-15 11:23 | PC.NURSE ---
this pt was brought to ed bed 13 from minor care, part of care was done in minor care on downtime and [facility] upon this nurse taking over care of patient, they were a&ox3, speaking in full sentences, vitals have been stable, pt ambulated to bathroom with stby assist-steady gait, pt denies pain/discomfort, monitoring manager nsr, iv inserted labs drawn, continuous wall suction/yankaur in place- pt suctioning secretions. pt to go to or per provider.
--- NOTE | 2023-03-15 12:18 | PHA.MEDREC ---
Pharmacy Consult ? Medication Reconciliation Pharmacy has completed the medication reconciliation. spoke with patient and she confirmed her medications. She reports last dose of prolia was given in May.
[2023-03-15 12:45] LABS: Alanine Aminotransferase 11 U/L (0-31); Albumin Level 3.6 g/dL (3.5-5.0); Alkaline Phosphatase 64 U/L (39-117); Anion Gap 13 (12-20); Aspartate Amino Transferase 15 U/L (5-31); Bilirubin Total 0.6 mg/dL (0.0-1.0); Blood Urea Nitrogen 22 mg/dL (9-16); Calcium 9.7 mg/dL (8.4-10.2); Carbon Dioxide 24 mmol/L (22-29); Chloride 108 mmol/L (96-108); Creatinine Clr Calc Pharmacy 55.3; Estimated Glomerular Filt Rate > 60; Glucose Random 102 mg/dL (60-115); Potassium 3.9 mmol/L (3.3-5.1); Sodium 141 mmol/L (135-145); Total Protein 6.6 g/dL (6.5-8.0)
--- NOTE | 2023-03-15 13:15 | PC.NURSE ---
patient a&ox3, nsr on equipment monitor phototypesetting, pt has suction with sahra at bedside, continues to speak in full sentences, pt awaiting endoscopy, this nurse spoke with OR which stated that pt will be brought down sometime after 3pm- they are awaiting on an open OR. family at bedside, call dill within reach, will continue to monitor.
--- NOTE | 2023-03-15 15:28 | MHC.SHP ---
Pre-Procedural Eval Section A Date of Service: 03/15/23 The patient is an INPATIENT: No Changes since office visit: No Cold of Flu in the past 2 weeks, No New Medical Problems, No Changes in Medication and No Patient answered all questions The History & Physical has been completed within 30 days and I have reviewed it.: Yes Section B Chief Complaint: UNBALE TO SWALLOW,Esophageal obstruction Allergies: Allergies Allergy/AdvReac Type Severity Reaction Status Date / Time tizanidine Allergy Intermediate dry mouth Verified 03/15/23 11:05 Plan I have reviewed the history and physical and performed a pertinent physical examination on my patient. No changes have occurred unless specified. Time Spent With Patient Time: Total time managing care of this patient today ____ minutes.
--- NOTE | 2023-03-15 15:41 | PC.NURSE ---
RN to RN report given to VIMAL Moncada in PACU. Transferred to OR with staff. Pt's daughter also present, and will remain in waiting room during procedure (Upper Endoscopy) to remove foreign object from throat (steak).
--- NOTE | 2023-03-15 16:27 | PM.OP ---
Brief Operative Note Date of Service: 03/15/23 Pre-op diagnosis: foreign body esophagus Post-op diagnosis: same Procedure: EGD Surgeon: Nura Brooks Anesthesia: MAC Was an Chief Operating Engineer used for this Procedure?: No Estimated blood loss (mL): 0 Pathology: none sent Condition: stable Disposition: PACU
--- NOTE | 2023-03-15 16:40 | HO.ANESPROP2 ---
[facility] Active Problems Active Problems: All Active Problems Food bolus obstruction of intestine (Acute) Nausea & vomiting (Acute) Finger mass, right (Acute) Tubular adenoma of colon (Acute) SVT (supraventricular tachycardia) (Acute) Palpitations (Acute) Compression fracture (Acute) Low back pain (Acute) Osteoporosis (Acute) Polyarthralgia (Acute) Hypovitaminosis D (Acute) Obese (Acute) GERD (gastroesophageal reflux disease) (Acute) Essential hypertension (Acute) Past Medical History Medical History Compression fracture Essential hypertension GERD (gastroesophageal reflux disease) Hypovitaminosis D Low back pain Obese Osteoarthritis Osteoporosis Polyarthralgia Vitamin D deficiency Family History Family History Father Cancer Mother Cancer Son Past heart attack Family history of problems with anesthesia: No Surgical History Surgical History History of tubal ligation Hx of colonoscopy History of Problems with Anesthesia: No Social History Social History Household Members: None Housing: Apartment Are you a primary primary care coordinator to a significant other at home: No 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) Alcohol intake: never Patient Tobacco Use Status: Never used Tobacco Smoked in Last 30 Days: No e-Cigarette/Vaping Use: Never Used Second Hand Smoke Exposure: No Use of substances other than those prescribed or required for medical reasons: No Advance Directives: No Advance Directives Information Provided: Yes service: No Current occupational status: disabled Sexual orientation: Straight/Heterosexual Gender identity: Female Cognitive needs: Yes Hearing needs: No Vision needs: No Meds Allergies Allergy/AdvReac Type Severity Reaction Status Date / Time tizanidine Allergy Intermediate dry mouth Verified 03/15/23 11:05 Active Medications: Current Medications Pharmacy Consult (Consult Rx Perform Med Rec) 1 each MISCELLANE ONCE PRN PRN Reason: Consult order Home Medications Medication Instructions Recorded Confirmed Last Taken Type cyclobenzaprine 10 mg tablet 10 mg PO Q8H PRN Muscle spasm 05/26/22 03/15/23 Unknown History famotidine 20 mg tablet 20 mg PO DAILY PRN Heartburn 03/15/23 03/15/23 Unknown History Exam Exam Date and Time: March 15, 2023 1640 Height,Weight and Vital Signs: Height 4 ft 10 in Weight 64.6 kg Last Vital Signs Temp 97.8 F 03/15/23 15:45 Pulse 77 03/15/23 15:45 Resp 20 03/15/23 15:45 BP 99/78 03/15/23 15:45 Pulse Ox 98 03/15/23 15:45 O2 Del Method Room Air 03/15/23 15:45 Pertinent Lab Results Pertinent Lab Results: Laboratory Tests 03/15/23 03/15/23 11:11 12:19 WBC 9.4 RBC 4.51 Hgb 13.3 Hct 40.4 MCV 89.6 MCH 29.5 MCHC 32.9 RDW 14.0 Plt Count 282 MPV 10.5 Immature Gran % (Auto) 0.4 Neut % (Auto) 77.4 H Lymph % (Auto) 14.0 L Atkinson % (Auto) 6.3 Eos % (Auto) 1.7 Baso % (Auto) 0.2 Lymph # (Auto) 1.3 Atkinson # (Auto) 0.6 Eos # (Auto) 0.2 Baso # (Auto) 0.0 Abs Immat Gran (auto) 0.04 H Absolute Neuts (auto) 7.3 Absolute Nucleated RBC 0.000 Nucleated RBC % (auto) 0.0 Sodium 141 Potassium 3.9 Chloride 108 Carbon Dioxide 24 Anion Gap 13 BUN 22 H Creatinine 0.71 Estim Creat Clear Calc 55.3 Estimated GFR > 60 Random Glucose 102 Calcium 9.7 Total Bilirubin 0.6 AST 15 ALT 11 Alkaline Phosphatase 64 Total Protein 6.6 Albumin 3.6 Airway Mallampati Class: II TM Dist: >3cm Neck ROM: Full Denture: Upper Assessment and Plan Assessment Anesthesia Assessment: Anesthesia Plan Discussed and Chart Reviewed Final Anesthetic Review Family History of Problems with Anesthesia: No History of Problems with Anesthesia: No NPO: No ASA Class: II and Emergency Final Preanesthetic Review: No Changes in Pt Med Stat, Meds/Allgs Chart Reviewed, Consent Obtained/Reviewed and Anes Risks/Benef Reviewed Patient Risk: Intermediate Procedure Risk: Intermediate Anesthetic Plan Anesthetic Plan: GA Disposition: Standard PACU
--- NOTE | 2023-03-16 02:36 | CONS_ITS ---
DATE OF SERVICE: 03/15/2023 REFERRING PHYSICIAN: JEAN PIERRE Lyles HISTORY OF PRESENT ILLNESS: The patient is a pleasant 73-year-old woman who presented to the emergency room today with complaints of acute dysphagia after ingesting a piece of steak this morning. Since that time, she has been unable to swallow. She was given glucagon and nitroglycerin in the emergency department with no improvement in her symptoms. She has a history of gastroesophageal reflux disease, well-controlled on famotidine 20 mg as needed for heartburn. She has had 1 episode of acute dysphagia in the past, which resolved after she drank some water. She denies chronic progressive dysphagia. PAST MEDICAL HISTORY: 1. Hypertension. 2. Gastroesophageal reflux disease. 3. Osteoporosis. 4. SVT. 5. Colon polyps. 6. Back pain/compression fracture. 7. Arthritis. CURRENT MEDICATIONS: Her current medication list is reviewed in the chart. ALLERGIES: TIZANIDINE. FAMILY HISTORY: This is reviewed with the patient and is negative for upper GI tract malignancy. SOCIAL HISTORY: She does not smoke or drink alcohol to excess. REVIEW OF SYSTEMS: SKIN: No pruritus. HEENT: Negative. CARDIOPULMONARY: No shortness of breath or chest pain. GASTROINTESTINAL: As above. GENITOURINARY: Negative. NEUROPSYCHIATRIC: Negative. PHYSICAL EXAMINATION: GENERAL: Shows a pleasant female, in mild distress, spitting into a Kleenex. VITAL SIGNS: Reviewed in the electronic medical record and are stable. SKIN: Anicteric. HEENT: Shows no scleral icterus. NECK: Without lymphadenopathy or thyromegaly. LUNGS: Clear. HEART: Shows a regular rate and rhythm. S1, S2. No murmur. ABDOMEN: Soft without focal masses or tenderness. Bowel sounds are present. No organomegaly is noted. EXTREMITIES: Without edema. IMPRESSION: Foreign body, esophagus. I discussed upper endoscopy with the patient including risks and benefits of the procedure. She understands these and agrees to proceed. MD ISATU Carlson/SABIHA / [id number]
--- NOTE | 2023-03-16 03:00 | OP_ITS ---
DATE OF SERVICE: 03/15/2023 SURGEON: Nura Brooks MD INDICATIONS: Esophageal foreign body. PREOPERATIVE DIAGNOSIS: POSTOPERATIVE DIAGNOSIS: PROCEDURE PERFORMED: ESTIMATED BLOOD LOSS: COMPLICATIONS: ANESTHESIA: ASSISTANTS: SPECIMENS: PROCEDURE: Upper endoscopy with removal of foreign body. MEDICATIONS: General endotracheal anesthesia. DESCRIPTION OF PROCEDURE: History and physical was performed. The risks and benefits of the procedure were explained to the patient and informed consent was obtained. The patient was placed in a left lateral decubitus position. The Olympus video gastroscope was introduced into the esophagus, stomach, and duodenum. Examination was performed. The scope was removed. She tolerated the procedure well and was returned to the recovery room in stable condition. FINDINGS: 1. Esophagus: Just below the upper esophageal sphincter, there was a large foreign body consistent with a piece of ingested meat as per the patient's history. This was gently pushed down with the scope into the stomach. There was associated esophagitis just below the upper esophageal sphincter, but no active bleeding and no stricture was identified. 2. Stomach: The stomach showed a single nonbleeding AVM measuring approximately 5 mm and focal areas of erythema consistent with gastritis. 3. Duodenum: The bulb and 2nd portion were normal. IMPRESSION: Foreign body esophagus. RECOMMENDATION: 1. Soft diet x24 hours. 2. Omeprazole 20 mg daily for 8 weeks. MD ISATU Carlson/MODL / [id number] MTDD
== END 2023-03-15 17:33 | disposition home or self-care (01) ==
LOC: HO.ED 11:14 → HO.SSS 11:18
PROVIDERS: Physician Assistant Medical; Emergency Provider Emergency Medicine; PCP Internal Medicine; Visit Provider Internal Medicine Gastroenterology
PROC: 0DJ08ZZ Inspection of Upper Intestinal Tract, Via Natural or Artificial Opening Endoscopic (ICD-10-PCS; CPT 43235; principal; 2023-03-15 15:00)
DX: T17.228A Food in pharynx causing other injury, initial encounter (principal); K22.2 Esophageal obstruction; K31.819 Angiodysplasia of stomach and duodenum without bleeding; R11.2 Nausea with vomiting, unspecified; K21.9 Gastro-esophageal reflux disease without esophagitis; I10 Essential (primary) hypertension; M81.0 Age-related osteoporosis without current pathological fracture; E55.9 Vitamin D deficiency, unspecified; M25.50 Pain in unspecified joint; Z79.899 Other long term (current) drug therapy; Z88.8 Allergy status to other drugs, medicaments and biological substances
CPT/HCPCS: 43247; 36415; 80053; 85025; 99284; 99285; J1100; J1610; J2405

== ENCOUNTER 2023-04-23 09:45 | Outpatient (REF) | payer OTHER, SELFPAY ==
--- NOTE | ~2023-04-23 | XR_ITS ---
EXAMINATION: XR FINGER, RIGHT CLINICAL INFORMATION: Localized swelling, mass and lump Palpable lump on right third digit distal phalanx COMPARISON: None available. TECHNIQUE: PA view of the right hand and oblique view of the right middle finger. FINDINGS: There is soft tissue fullness of the right middle finger at the level of the distal phalanx. No associated calcifications. No fracture or dislocation. Alignment is anatomic. There is mild DJD degenerative change of the DIP joint of the ring finger. XR/XR finger RT min 2V IMPRESSION: Soft tissue fullness of the right middle finger at the level of the distal phalanx. No associated calcifications. No acute bony abnormality.
[2023-04-23 11:02] LABS: Alanine Aminotransferase 12 U/L (0-31); Alkaline Phosphatase 80 U/L (39-117); Anion Gap 11 (12-20); Aspartate Amino Transferase 17 U/L (5-31); Bilirubin Total 0.5 mg/dL (0.0-1.0); Blood Urea Nitrogen 17 mg/dL (9-16); Calcium 10.1 mg/dL (8.4-10.2); Carbon Dioxide 26 mmol/L (22-29); Chloride 107 mmol/L (96-108); Cholesterol 224 mg/dL; Estimated Glomerular Filt Rate > 60; Glucose Fasting 110 mg/dL (60-99); HDL Cholesterol 71 mg/dL; LDL Cholesterol Calculated 125 mg/dl; Phosphorus 3.6 mg/dL (2.7-4.5); Potassium 4.1 mmol/L (3.3-5.1); Sodium 140 mmol/L (135-145); Total Protein 7.2 g/dL (6.5-8.0); Triglycerides 141 mg/dL
[2023-04-23 11:11] LABS: Vitamin D 25-OH Total 48.3 ng/mL (>30)
== END 2023-04-23 09:46 | disposition home or self-care (01) ==
LOC: HO.LAB 09:45
PROVIDERS: PCP Internal Medicine; Visit Provider Nurse Practitioner Family
DX: R22.31 Localized swelling, mass and lump, right upper limb (principal); E55.9 Vitamin D deficiency, unspecified; M81.0 Age-related osteoporosis without current pathological fracture; E78.5 Hyperlipidemia, unspecified
CPT/HCPCS: 36415; 73140; 80053; 80061; 82306; 84100

== ENCOUNTER 2023-05-25 10:17 | Outpatient (AMB) | payer OTHER, SELFPAY ==
[2023-05-25 10:27] VITALS: BP 118/72; PULSE 81; TEMP 36.4; O2SAT 99; BMI 34.3
--- NOTE | 2023-05-25 10:27 | A.OFFVIS_ITS ---
Intake Vital Signs 05/25/23 10:27 Height 4 ft 6 in Weight 142 lb 6.698 oz BMI 34.3 BP 118/72 Blood Pressure Location Rt brachial Pulse 81 Pulse Source Pulse Oximeter Temp 97.6 F Temp Source Skin Pulse Oximetry (%) 99 Intake Visit Reasons: osteoporosis follow up and prolia injection First Officer And Flight Instructor Required: Yes First Officer And Flight Instructor Name: Beryl [id number] Accompanied by: Self / Same As Patient Allergies tizanidine Allergy (Intermediate, Verified 05/25/23 10:30) dry mouth Medication List - Last Reconciled 05/25/23 by Louie Kwok MD acetaminophen-codeine 300-30 mg 0.5 tabs PO Q8H PRN aspirin 81 mg PO DAILY 90 days [bath bench with arms As directed] cholecalciferol (vitamin D3) (Vitamin D3) 25 mcg PO DAILY cyclobenzaprine 10 mg PO Q8H PRN denosumab (Prolia) 60 mg subcut [id number] famotidine 20 mg PO DAILY PRN Grab bar As directed metoprolol succinate ER 25 mg PO DAILY naproxen 500 mg PO BID omeprazole 20 mg PO DAILY [showerhead handheld As directed] HPI HPI Comments History of Present Illness Details This is a 73-year-old female with osteoporosis who presents for follow- up. She was last evaluated by Rupali Castano 11/26. She is due for Prolia injection today. Patient states that she is doing well overall. She has been having pain and swelling on the radial aspect of her right middle finger for years. She states that the swelling has grown and is intermittently painful. She states that she had similar swelling in her left ring finger and it has gotten smaller over the years. 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) Alcohol intake: never Patient Tobacco Use Status: Never used Tobacco e-Cigarette/Vaping Use: Never Used Second Hand Smoke Exposure: No service: No Current occupational status: disabled Sexual orientation: Straight/Heterosexual Gender identity: Female Cognitive needs: Yes Hearing needs: No Vision needs: No Review of Systems Musc Reports arthralgias and Reports joint swelling Physical Exam Vital Signs: Last Vital Signs Temp 97.6 F 05/25/23 10:27 Pulse 81 05/25/23 10:27 BP 118/72 05/25/23 10:27 Pulse Ox 99 05/25/23 10:27 BMI result Body Mass Index 34.3 Const General: cooperative, healthy appearing and comfortable Nutritional Appearance: obese Orientation/consciousness: patient oriented x3 Limitations: ambulation with cane HEENT Head: Yes normocephalic and Yes atraumatic Mouth: moist mucous membranes Resp Effort & Inspection: normal respiratory effort and able to speak in complete sentences Auscultation: clear to auscultation bilaterally Skin General skin exam: no rashes or lesions noted Neuro General: patient oriented x3 Extrem Other: Rounded mobile soft tissue swelling on the radial aspect of the right middle finger, not warm or erythematous, tender when pressed firmly Office Meds Prolia 60 mg/mL subcutaneous syringe Performing Provider: Louie Kwok MD Performing Location: [facility] Administered by: Laney Brown RN on 05/25/23 10:59 Dose Route Admin Location Dispensed Lot Number Expiration Date [facility] Mob[employer] 60 mg subcut right arm 1 mL [id number] 11/03/25 43732-881-74 AMGEN Assessment & Plan Assessment & Plan (1) Osteoporosis: Comment: dx before 2003 Previously treated with bisphosphonate for 5 years Started on Forteo October 2018 for severe osteoporosis T-score -3.9-completed 24 months of therapy Started on Prolia October 2020-present Code(s): M81.0 - Age-related osteoporosis without current pathological fracture Qualifiers: Osteoporosis type: age-related Presence of current pathological fracture: without current pathological fracture Qualified Code(s): M81.0 - Age- related osteoporosis without current pathological fracture Plan: Patient with a history of osteoporosis since at least 2003. Previously treated with Bisphosphonate for 5 years but patient is unsure of when she stopped medication. Patient has compression fracture listed in her problem list but does not recall any details about this. She was started on Forteo in October 2018 for severe osteoporosis found on DEXA scan done in February 2018 (T score -3.9 in lumbar spine). She completed 24 months of therapy with Forteo. She has now transitioned to Prolia. She received the 1st injection of Prolia in October 2020. She has been tolerating Prolia without issue. Repeat DEXA March 2022 with T- score is? -3.5 in the lumbar spinecompared to -3.9 in the lumbar spine in 2018. Will continue prolia. She is due for injection today and will receive this in the office. Monitoring labs are stable. Follow-up in the office in 6 months Prolia injection with labs or sooner if needed. (2) Finger mass, right: Code(s): R22.31 - Localized swelling, mass and lump, right upper limb Plan: Referred to Hand surgery Plan I spent 25 minutes reviewing patient's chart, evaluating patient, ordering diagnostic workup, counseling patient and documenting in the chart Orders: Orders AMB Denosumab Injection Patient Supplied Today M81.0 - Age-related osteoporosis without current pathological fracture Basic Metabolic Panel 6 Months M81.0 - Age-related osteoporosis without current pathological fracture Referrals Hand Surgery Referral R22.31 - Localized swelling, mass and lump, right upper limb Coding Level of Care Code Est Pt Level 4 (01209) Diagnoses Age-related osteoporosis without current pathological fracture M81.0 Osteoporosis type: age-related Presence of current pathological fracture: without current pathological fracture Finger mass, right R22.31
== END 2023-05-25 10:55 | disposition home or self-care (01) ==
PROVIDERS: PCP Internal Medicine; Visit Provider Student in an Organized Health Care Education/Training Program
DX: M81.0 Age-related osteoporosis without current pathological fracture (principal); R22.31 Localized swelling, mass and lump, right upper limb
CPT/HCPCS: 99214

== ENCOUNTER → 2023-05-25 10:17 | Outpatient (BNVA) | payer OTHER, SELFPAY | PROVIDERS: PCP Internal Medicine; Visit Provider Student in an Organized Health Care Education/Training Program | DX: M81.0 Age-related osteoporosis without current pathological fracture (principal); R22.31 Localized swelling, mass and lump, right upper limb | CPT/HCPCS: 96372; 99212; J0897 ==

== ENCOUNTER 2023-06-25 10:25 | Outpatient (AMB) | payer OTHER, SELFPAY ==
[2023-06-25 10:57] VITALS: BMI 34.2
--- NOTE | 2023-06-25 10:57 | A.OFFVIS_ITS ---
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 States she noticed the mass about 6-7 months ago. States this causes pain in her finger. Also states she has small lumps on palm of both hands. Denies numbness or tingling. 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 Her chief complaint is of pain in the A1 alexander area of the right middle finger. She does complain of some locking and catching at home. She was also referred by her primary care physician for a mass over the radial aspect of the proximal phalanx of the right middle finger. The patient believed that the mass was causing the finger pain. 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) Alcohol intake: never Patient Tobacco Use Status: Never used Tobacco e-Cigarette/Vaping Use: Never Used Second Hand Smoke Exposure: No service: No Current occupational status: disabled Sexual orientation: Straight/Heterosexual Gender identity: Female Cognitive needs: Yes Hearing needs: No Vision needs: No Physical Exam Vital Signs: BMI result Body Mass Index 34.2 Const General: cooperative, healthy appearing and no acute distress Orientation/consciousness: oriented to person and oriented to place HEENT Head: Yes normocephalic and Yes atraumatic Eyes EOM: EOMs intact bilaterally Resp Effort & Inspection: normal respiratory effort and able to speak in complete sentences Cardio Jugular venous distension: no JVD Skin General skin exam: turgor normal Rashes: no rashes Neuro General: oriented to person and oriented to place Extrem Other: Evaluation of right Upper Extremity: Neuro: Median, ulnar, radial nerves motor and sensory intact. Vascular: Cap refill brisk. ROM: Can bring fingers closed to a fist and back out to full or nearly full extension. I did not see any visible locking or catching today. She was most tender to palpation over the right middle finger A1 alexander. She also has a soft tissue mass over the radial aspect of the right middle finger proximal phalanx. It measures approximately 1 cm in length by perhaps 7 mm in diameter, it is deep to the skin and somewhat mobile. Not particularly tender. Skin: No lacerations or abrasions. General: No eccymosis. No erythema or evidence of infection. Radiographs: Three views of the right hand were reviewed by me today in clinic and show no fracture no fractures or dislocations. No evidence of bony mass involvement. No real arthritic changes in the middle finger though she does have some right ring finger D IP joint osteoarthritis. Psych Appearance: grossly normal Affect: normal affect Attitude: cooperative Office Procedures Fracture Care Details: No fracture, injection Fracture Billing Code: Fracture Billing Code Assessment & Plan Assessment & Plan (1) Trigger finger, right middle finger: Code(s): M65.331 - Trigger finger, right middle finger (2) Finger mass, right: Code(s): R22.31 - Localized swelling, mass and lump, right upper limb Plan Assessment and plan: 1. Right middle finger trigger finger Tender over the A1 alexander. No locking or catching today in clinic, but with a history of locking and catching I believe this is what is causing most of her pain. Note: She did have visible palpable locking and catching following her steroid injection today. We discussed operative and non operative treatment options and I am recommending a steroid injection today. Injection #1: The risks and benefits of a steroid injection including but not limited to risk of damage to blood vessels, nerves, tendons, infection, skin bleaching, failure to improve symptoms, increased pain, and possible need for further injections or other intervention were discussed with the patient and the patient wishes to proceed with the steroid injection. Once consent was obtained, I sterilely prepped the area over the A1 alexander of the flexor tendon sheath of the right middle finger. I then injected the flexor tendon sheath with a combination of 1 mL of dexamethasone (4mg/ml), and 1% lidocaine. The patient tolerated the procedure well with no complications. She did have visible palpable locking and catching after the injection. If the patient continues to have locking and catching 4-6 weeks following this injection, they may call to schedule appointment to be seen for possible A1 alexander release. 2. Right middle finger soft tissue mass I educated her about this condition This is something that we should go ahead and take out. We will wait and see how she did with a steroid injection for her trigger finger. If she continues to have trouble with the right middle finger trigger finger then we could perform a trigger finger release at the same time that we remove the soft tissue mass. She is happy with the plan Coding Level of Care Code New Pt Level 3 (98368) Diagnoses Trigger finger, right middle finger M65.331 Finger mass, right R22.31 CPT Codes Fracture Care - Fracture Billing Code: Fracture Billing Code ([id number])
== END 2023-06-25 11:36 | disposition home or self-care (01) ==
PROVIDERS: PCP Internal Medicine; Visit Provider Orthopaedic Surgery
DX: M65.331 Trigger finger, right middle finger (principal); R22.31 Localized swelling, mass and lump, right upper limb
CPT/HCPCS: 20550; 99204

== ENCOUNTER → 2023-06-25 10:25 | Outpatient (BNVA) | payer OTHER, SELFPAY | PROVIDERS: PCP Internal Medicine; Visit Provider Orthopaedic Surgery | DX: M65.331 Trigger finger, right middle finger (principal); R22.31 Localized swelling, mass and lump, right upper limb | CPT/HCPCS: 20550; J1100 ==

== ENCOUNTER 2023-07-19 10:18 | Outpatient (REF) | payer OTHER, SELFPAY | END 2023-07-19 10:19 | disposition home or self-care (01) | LOC: HO.MAMMO 10:18 | PROVIDERS: PCP Internal Medicine; Visit Provider Internal Medicine | DX: Z12.31 Encounter for screening mammogram for malignant neoplasm of breast (principal) | CPT/HCPCS: 77063; 77067 ==

== ENCOUNTER → 2023-07-19 10:30 | Outpatient (BNV) | payer OTHER, SELFPAY | PROVIDERS: PCP Internal Medicine; Visit Provider Radiology Diagnostic Radiology | DX: Z12.31 Encounter for screening mammogram for malignant neoplasm of breast (principal) | CPT/HCPCS: 77063; 77067 ==

== ENCOUNTER 2023-09-07 10:56 | Outpatient (AMB) | payer OTHER, SELFPAY ==
--- NOTE | 2023-09-07 11:03 | A.OFFVIS_ITS ---
Intake Vital Signs 09/07/23 11:07 Height 4 ft 6 in Weight 142 lb BMI 34.2 Handedness Right Intake Visit Reasons: OV-Rt Middle finger Trigger/ Mass Intake Note: Katty 73 old female presents today for her follow up visit for her right middle finger s/p trigger injection from 06/25/23. States injection did not help and would like to discuss surgical intervention. Allergies tizanidine Allergy (Intermediate, Verified 09/07/23 11:03) dry mouth HPI OV-Rt Middle finger Trigger/ Mass HPI Details Katty is a 73 year old right hand dominant [place] speaking woman who returns to discuss her right middle trigger finger & finger mass. She is here today with her daughter, who acts as a rn training. She was last seen and injected on 06/25/23, which she says did not improve her locking. She continues to complain of locking and pain in her middle finger, and she would like to discuss alternative treatment options. Her locking primarily occur s in the mornings. 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) Alcohol intake: never Patient Tobacco Use Status: Never used Tobacco e-Cigarette/Vaping Use: Never Used Second Hand Smoke Exposure: No service: No Current occupational status: disabled Sexual orientation: Straight/Heterosexual Gender identity: Female Cognitive needs: Yes Hearing needs: No Vision needs: No Review of Systems Const All systems reviewed & are unremarkable except as noted in HPI and below Physical Exam Vital Signs: BMI result Body Mass Index 34.2 Const General: no acute distress and alert Orientation/consciousness: patient oriented x3 Neuro General: patient oriented x3 Extrem Other: Evaluation of Upper Extremity: The patient is alert, oriented, and in no acute distress Neuro: Median, Ulnar, Radial nerves motor and sensory intact and sensation is normal to the tips of all digits Vascular: Cap refill brisk ROM: She can make a fist and extend all her digits Tender over the a1 alexander of the middle finger Visible catching of the middle finger, though she says she has locking primarily in the mornings There is a soft tissue mass over the dorsal radial aspect of the right middle finger proximal phalanx, Measuring ~1cm * 7mm in size. It is deep to the skin and somewhat mobile. Not particularly tender. Psych Appearance: grossly normal Affect: normal affect Attitude: cooperative Assessment & Plan Assessment & Plan (1) Trigger finger, right middle finger: Code(s): M65.331 - Trigger finger, right middle finger (2) Finger mass, right: Code(s): R22.31 - Localized swelling, mass and lump, right upper limb Plan Assessment and plan: 1. Right middle finger trigger finger, S/p injection Date of Injection: 06/25/23 2. Right middle finger soft tissue mass Measuring ~1cm*7mm in size over the dorsal radial proximal phalanx I educated her about this condition I discussed operative and non-operative treatment options The patient would like to proceed with surgery The risks and benefits of operative treatment were discussed with the patient and the patient wishes to proceed with surgery. These risks include, but are not limited to risk of damage to blood vessels, nerves, tendons, infection, recurrence, incomplete relief of preoperative symptoms, persistent pain, possible need for further surgery and the risks associated with regional blocks and anesthesia. The plan is to take the patient to the operating room sometime in the next few [facility] for the following procedures: 1. Right middle trigger finger release, under local 2. Right middle finger excision of mass, under local All of the preoperative paperwork including the consent was filled out today. All the patient's questions were answered. The patient understands that they will be contacted by our outpatient scheduler soon to schedule this procedure Scribed for Rupali Harrell MD by Timothy Blake, bacteriologist medical, on 09/07/23 at 11:30 AM, EST. Coding Level of Care Code Est Pt Level 4 (04545) Diagnoses Trigger finger, right middle finger M65.331 Finger mass, right R22.31
[2023-09-07 11:07] VITALS: BMI 34.2
== END 2023-09-07 12:57 | disposition home or self-care (01) ==
PROVIDERS: PCP Internal Medicine; Visit Provider Orthopaedic Surgery
DX: M65.331 Trigger finger, right middle finger (principal); R22.31 Localized swelling, mass and lump, right upper limb
CPT/HCPCS: 99214

== ENCOUNTER → 2023-09-07 10:56 | Outpatient (BNVA) | payer OTHER, SELFPAY | PROVIDERS: PCP Internal Medicine; Visit Provider Orthopaedic Surgery | DX: M65.331 Trigger finger, right middle finger (principal); R22.31 Localized swelling, mass and lump, right upper limb | CPT/HCPCS: 99212 ==

== ENCOUNTER 2023-09-21 14:35 | Outpatient (AMB) | payer OTHER, SELFPAY ==
--- NOTE | 2023-09-21 14:40 | A.OFFPC_ITS ---
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 Accompanied by: Self / Same As Patient Allergies tizanidine Allergy (Intermediate, Verified 09/21/23 14:46) dry mouth Medication List - Last Reconciled 09/21/23 by Angelina Stanley MD acetaminophen-codeine 300-30 mg 0.5 tabs PO Q8H PRN aspirin 81 mg PO DAILY 90 days [bath bench with arms As directed] cholecalciferol (vitamin D3) (Vitamin D3) 25 mcg PO DAILY cyclobenzaprine 10 mg PO Q8H PRN denosumab (Prolia) 60 mg subcut [id number] famotidine 20 mg PO DAILY PRN Grab bar As directed metoprolol succinate ER 25 mg PO DAILY naproxen 500 mg PO BID [showerhead handheld As directed] Tobacco use date assessed: 09/21/23 Fall risk assessment: No Falls in past year Last assessed Fall Risk: 09/21/23 Dental Screening Dental Screen Date: 09/21/23 Did you have a dental visit in the last 12 months?: Yes Did you have a dental problem in the last 6 months where you did not have access to dental care?: No Was dental information given to patient?: Patient has dentist HPI HPI Comments History of Present Illness Details This is 73-year-old female that comes for her physical exam. Last mammogram was July 2023 and was normal. Last colonoscopy was 2018 showing tubular adenoma and has an appointment with Gastroenterology for December 2023 regarding next colonoscopy. Walks with a cane for gait stability. Bone density was done March 2022 showing osteoporosis and this is follow by Rheumatology. No chest pain or shortness of breath. [facility] Medical History (Updated 09/21/23 @ 15:20 by Angelina Stanley MD) Food bolus obstruction of intestine SVT (supraventricular tachycardia) Compression fracture Osteoporosis Vitamin D deficiency Low back pain Osteoarthritis Polyarthralgia Hypovitaminosis D Obese GERD (gastroesophageal reflux disease) Essential hypertension Surgical History Hx of colonoscopy History of tubal ligation Family History Father Cancer Mother Cancer Son Past heart attack Social History Household Members: None Housing: Apartment Are you a primary customer care assistant to a significant other at home: No 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 1. Little interest or pleasure in doing things: not at all 2. Feeling down, depressed, or hopeless: not at all 3. Trouble falling or staying asleep, or sleeping too much: not at all 4. Feeling tired or having little energy: not at all 5. Poor appetite or overeating: not at all 6. Feeling bad about yourself - or that you are a failure or have let yourself or your family down: not at all 7. Trouble concentrating on things, such as reading the newspaper or watching television: not at all 8. Moving or speaking so slowly that other people could have noticed. Or the opposite - being so fidgety or restless that you have been moving around a lot more than usual: not at all 9. Thoughts that you would be better off or of hurting yourself in some way: not at all Total score: 0 Depression Screening Interpretation: Negative Depression Screening Done: Yes 87422 - PHQ-9 Billing: Yes Source: Developed by Drs. Abdias Wu, Ramona Weinberg, Tk Alvarez and colleagues, with an educational ck from [employer]. Thrive Questionnaire Date Thrive assessed: 09/21/23 I am a: Patient What is your living situation today?: I have a steady place to live Within the past 12 months, did the food you bought not last and you didn't have the money to get more?: Never true Within the past 12 months, did you worry whether your food would run out before you got money to buy more?: Never true Do you have trouble paying for medicines?: No Do you have trouble getting transportation to medical appointments?: No Do you have trouble paying your heating and electricity bill?: No Do you have trouble taking care of your child, family member or friend?: No Do you have trouble with day-to-day activities such as bathing, preparing meals, shopping, managing finances, etc.?: No Are you currently unemployed and looking for a job?: No Are you interested in more education?: No Please select the resources that you would like help with: None AUDIT C Alcohol Use Questionnaire (AUDIT-C) 1. How often do you have a drink containing alcohol?: Never Total Score: 0 RADHA-7 AMB Questionnaire RADHA-7 Date RADHA - 7 assessed: 09/21/23 Feeling nervous, anxious, or on edge: 0 = Not at all Not being able to stop or control worryin = Not at all Worrying too much about different things: 0 = Not at all Trouble relaxin = Not at all Being so restless that it is hard to sit still: 0 = Not at all Becoming easily annoyed or irritable: 0 = Not at all Feeling afraid as if something awful might happen: 0 = Not at all Total RADHA-7 score (0-4 normal; 5-9 mild; 10-14 moderate; 15-21 severe): 0 Source: Developed by Drs. Abdias Wu, Ramona Weinberg, Tk Alvarez and colleagues, with an educational ck from [employer]. RADHA-7 Assessment Billing RADHA-7 Assessment Tool: RADHA-7 Assessment 48281 Review of Systems Const All systems reviewed & are unremarkable except as noted in HPI and below Eyes Reports no additional complaints, Denies change in vision and Denies other visual disturbances Card Denies chest pain at rest, Denies chest pain with activity, Denies edema, Denies irregular heart rhythm, Denies claudication, Denies dyspnea, Denies dyspnea on exertion, Denies orthopnea, Denies paroxysmal nocturnal dyspnea and Denies slow heart rate Resp Denies cough, Denies dyspnea and Denies dyspnea on exertion GI Denies abdominal pain, Denies change in bowel habits, Denies excessive flatus, Denies nausea and Denies vomiting Denies urinary incontinence, Denies urinary hesitancy and Denies urinary urgency Musc Denies abnormal gait, Denies atrophy, Denies deformity and Denies limited range of motion Skin/Breast Denies bleeding lesions, Denies changing lesions and Denies rash Neuro Denies abnormal gait, Denies behavioral changes, Denies confusion and Denies lack of coordination Psych Denies behavioral changes and Denies confusion Physical exam (Primary Care) Vital Signs: Last Vital Signs BP 130/76 09/21/23 14:41 BMI result Body Mass Index 34.7 Tobacco/Smoking Status: Tobacco use Status Tobacco use date assessed 09/21/23 09/21/23 14:50 Patient Tobacco Use Status Never used Tobacco 09/21/23 14:50 e-Cigarette/Vaping Use Never Used 09/21/23 14:50 PHQ-9: PHQ-9 Score PHQ-9: Total score 0 09/21/23 14:51 Depression Screening Interpretation: Negative Thrive Assessment: Date of Thrive Assessment Date Thrive assessed 09/21/23 09/21/23 14:50 Const General: No confusion Orientation/consciousness: patient oriented x3 and No confusion Limitations: ambulation with cane HENMT Head: Yes normal to inspection, Yes normocephalic and Yes atraumatic Ears: external ears normal Eyes General: appearance normal, both eyes and all related structures Eyelids: Yes eyelids normal Conjunctivae: conjunctivae normal Neck Neck: Yes normal visual inspection and Yes supple Resp Effort & Inspection: normal respiratory effort Auscultation: clear to auscultation bilaterally Cardio Jugular venous distension: no JVD Rate: regular rate Rhythm: regular rhythm Heart sounds: S1 normal heart sound present and S2 normal heart sound present GI Inspection: Yes normal to inspection Palpation (GI): Soft to palpation and nontender Auscultation: normal bowel sounds Skin General skin exam: no rashes or lesions noted Neuro General: patient oriented x3, no focal motor deficits and No confusion Extrem General: Yes full ROM Psych Appearance: grossly normal Office Procedures Flu Questionnaire Does the patient have a severe egg allergy?: No Immunizations flu vacc [id number] 6mos up(PF) 60 mcg(15 mcgx4)/0.5 mL IM syringe Performing Provider: Angelina Stanley MD [facility] Documented (not given) by: NYDIA Jennings on 09/21/23 14:51 Reason Not Given: Received Previously Assessment and Plan Assessment & Plan (1) Physical exam: Code(s): Z00.00 - Encounter for general adult medical examination without abnormal findin gs Plan: Repeat in a year. Orders: Orders Vitamin D 25-OH Total Today E55.9 - Vitamin D deficiency, unspecified Comprehensive Gloster. Panel Fast Today I10 - Essential (primary) hypertension Influenza [id number] Immunization Today Z23 - Encounter for immunization Lipid Panel Today E78.5 - Hyperlipidemia, unspecified, I10 - Essential (primary) hypertension XR DEXA axial skeleton 6 Months N95.9 - Unspecified menopausal and perimenopausal disorder Medications: Refilled aspirin 81 mg PO DAILY 90 days 90 tabs 3RF M81.0 - Age-related osteoporosis without current pathological fracture cholecalciferol (vitamin D3) (Vitamin D3) 25 mcg PO DAILY 90 tabs 3RF M81.0 - Age-related osteoporosis without current pathological fracture Coding Level of Care Code Est Pt Prev Care >65y(91393) Diagnoses Physical exam Z00.00 Additional Codes RADHA-7 Assessment Billing - RADHA-7 Assessment Tool: RADHA-7 Assessment 09818 ([id number]) Time Spent (min) 31
[2023-09-21 14:41] VITALS: BP 130/76; BMI 34.7
== END 2023-09-21 15:19 | disposition home or self-care (01) ==
PROVIDERS: PCP Internal Medicine; Visit Provider Internal Medicine
DX: Z00.00 Encounter for general adult medical examination without abnormal findings (principal)
CPT/HCPCS: 99397

== ENCOUNTER 2023-09-23 12:45 | Outpatient (AMB) | payer OTHER, SELFPAY ==
[2023-09-23 13:14] VITALS: BP 110/64; PULSE 73; BMI 34.7
--- NOTE | 2023-09-23 13:14 | MHC.OFFVIS ---
Intake Vital Signs 09/23/23 13:14 Height 4 ft 6 in Weight 143 lb 11.862 oz BMI 34.7 BP 110/64 Blood Pressure Location Lt brachial Position Sitting Pulse 73 Intake Visit Reasons: 1 yr f/up Intake Note: 1 yr f/up pt its feeling fine. 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 [employer] Name: Daughter - form signed Information Interpreted: non-clinical & clinical Accompanied by: Daughter Allergies tizanidine Allergy (Intermediate, Verified 09/21/23 14:46) dry mouth Medication List - Last Reconciled 09/23/23 by Zaida Urrutia NP acetaminophen-codeine 300-30 mg 0.5 tabs PO Q8H PRN 30 days aspirin 81 mg PO DAILY 90 days [bath bench with arms As directed] cholecalciferol (vitamin D3) (Vitamin D3) 25 mcg PO DAILY cyclobenzaprine 10 mg PO Q8H PRN denosumab (Prolia) 60 mg subcut [id number] famotidine 20 mg PO DAILY PRN 90 days Grab bar As directed metoprolol succinate ER 25 mg PO DAILY naproxen 500 mg PO BID 30 days [showerhead handheld As directed] HPI HPI Comments History of Present Illness Details [id number] presents for her one year follow-up. She reports she has been doing well with no concerning symptoms since her last visit. She denies chest pain, shortness of breath, or palpitations. She has a history of supraventricular tachycardia. Echocardiography is 2021 showed normal LV function with moderate septal hypertrophy. She was started on metoprolol succinate 25 mg daily then and doing well with it. Refill sent to her preferred pharmacy. She reports compliancy with this medication [facility] Medical History (Updated 09/23/23 @ 14:38 by Zaida Urrutia NP) SVT (supraventricular tachycardia) Food bolus obstruction of intestine Compression fracture Osteoporosis Vitamin D deficiency Low back pain Osteoarthritis Polyarthralgia Hypovitaminosis D Obese GERD (gastroesophageal reflux disease) Essential hypertension Surgical History Hx of colonoscopy History of tubal ligation Family History Father Cancer Mother Cancer Son Past heart attack Social History Household Members: None Housing: Apartment Are you a primary children's zoo caretaker to a significant other at home: No 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) Alcohol intake: never Patient Tobacco Use Status: Never used Tobacco e-Cigarette/Vaping Use: Never Used Second Hand Smoke Exposure: No service: No Current occupational status: disabled Sexual orientation: Straight/Heterosexual Gender identity: Female Cognitive needs: Yes Hearing needs: No Vision needs: No Review of Systems Const Denies chills, Denies fatigue, Denies fever(s), Denies frequent falls, Denies weakness, Denies weight gain and Denies weight loss ENT Denies dizziness Card Denies chest pain, Denies leg edema, Denies lightheadedness, Denies palpitations, Denies dyspnea and Denies dyspnea on exertion Resp Denies cough, Denies dyspnea and Denies dyspnea on exertion GI Denies hematochezia Musc Denies abnormal gait, Denies muscle weakness, Denies numbness, Denies radiating pain into limb and Denies tingling Neuro Denies abnormal gait, Denies dizziness, Denies frequent falls, Denies numbness, Denies tingling and Denies weakness Endo Denies fatigue and Denies palpitations Physical Exam Vital Signs: Last Vital Signs Pulse 73 09/23/23 13:14 BP 110/64 09/23/23 13:14 BMI result Body Mass Index 34.7 Const General: healthy appearing and no acute distress Orientation/consciousness: patient oriented x3 HEENT Head: Yes normal to inspection Eyes General: appearance normal, both eyes and all related structures Neck Neck: Yes normal visual inspection Chest Chest palpation & inspection: normal inspection of the chest Resp Effort & Inspection: normal respiratory effort Auscultation: clear to auscultation bilaterally Cardio Jugular venous distension: no JVD Palpation: normal PMI Rate: regular rate Rhythm: regular rhythm Heart sounds: S1 normal heart sound present, S2 normal heart sound present, no click, no gallops, no murmurs and no rubs GI Inspection: Yes normal to inspection Palpation (GI): Soft to palpation Skin General skin exam: no rashes or lesions noted Neuro General: patient oriented x3 Extrem General: Yes normal to inspection Psych Appearance: grossly normal Office Procedures EKG Details: EKG today: Normal sinus rhythm. rate 73 bpm. QTc 427ms. MA 136ms. [id number], Complete Assessment & Plan Assessment & Plan (1) Essential hypertension: Code(s): I10 - Essential (primary) hypertension (2) SVT (supraventricular tachycardia): Code(s): I47.1 - Supraventricular tachycardia Plan Blood pressure is good. Continue same medication for now. Report any new or worsening symptoms. Return in one year or sooner if needed. Medications: Refilled metoprolol succinate ER 25 mg PO DAILY 90 tabs 3RF I47.1 - Supraventricular tachycardia Coding Level of Care Code Est Pt Level 3 (19800) Diagnoses Essential hypertension I10 SVT (supraventricular tachycardia) I47.1 CPT Codes EKG - CPT: 92199-[id number], Complete ([id number])
== END 2023-09-23 13:37 | disposition home or self-care (01) ==
PROVIDERS: PCP Internal Medicine; Visit Provider Nurse Practitioner
DX: I10 Essential (primary) hypertension (principal); I47.10 Supraventricular tachycardia, unspecified
CPT/HCPCS: 93010; 99213

== ENCOUNTER → 2023-09-23 12:45 | Outpatient (BNVA) | payer OTHER, SELFPAY | PROVIDERS: PCP Internal Medicine; Visit Provider Nurse Practitioner | DX: I47.10 Supraventricular tachycardia, unspecified (principal); I10 Essential (primary) hypertension | CPT/HCPCS: 93005; 99212 ==

== ENCOUNTER 2023-10-07 08:33 | Outpatient (REF) | payer OTHER, SELFPAY ==
[2023-10-07 10:12] LABS: Alanine Aminotransferase 12 U/L (0-31); Alkaline Phosphatase 81 U/L (39-117); Anion Gap 12 (12-20); Aspartate Amino Transferase 16 U/L (5-31); Bilirubin Total 0.6 mg/dL (0.0-1.0); Blood Urea Nitrogen 20 mg/dL (9-16); Calcium 8.9 mg/dL (8.4-10.2); Carbon Dioxide 25 mmol/L (22-29); Chloride 109 mmol/L (96-108); Cholesterol 225 mg/dL (<200); Estimated Glomerular Filt Rate > 60; Glucose Fasting 120 mg/dL (60-99); HDL Cholesterol 70 mg/dL (>40); LDL Cholesterol Calculated 129 mg/dL (<100); Potassium 3.9 mmol/L (3.3-5.1); Sodium 142 mmol/L (135-145); Total Protein 7.3 g/dL (6.5-8.0); Triglycerides 134 mg/dL (<150)
[2023-10-07 10:27] LABS: Vitamin D 25-OH Total 40.8 ng/mL (>30)
== END 2023-10-07 08:34 | disposition home or self-care (01) ==
LOC: HO.LAB 08:33
PROVIDERS: Absent Provider Student in an Organized Health Care Education/Training Program; PCP Internal Medicine; Visit Provider Internal Medicine
DX: E55.9 Vitamin D deficiency, unspecified (principal); E78.5 Hyperlipidemia, unspecified; I10 Essential (primary) hypertension
CPT/HCPCS: 36415; 80053; 80061; 82306

== ENCOUNTER 2023-11-18 08:02 | Day surgery (SDC) | payer OTHER, SELFPAY ==
[2023-11-18 08:12] VITALS: BP 150/74; PULSE 78; RESP 18; TEMP 36.6; O2SAT 97
[2023-11-18 08:13] VITALS: BMI 35.8
--- NOTE | 2023-11-18 10:11 | MHC.SHP ---
Pre-Procedural Eval Section A - 24 Hr Update-Section A only Date of Service: 11/18/23 The patient is an INPATIENT: No The patient has been examined within 24 hours of the surgical procedure. The History & Physical has been completed within 30 days and I have reviewed it.: Yes Section B - Complete if H&P > 30 days Chief Complaint: Trigger finger, right middle finger mass and lump Allergies: Allergies Allergy/AdvReac Type Severity Reaction Status Date / Time tizanidine Allergy Intermediate dry mouth Verified 09/21/23 14:46 Plan I have reviewed the history and physical and performed a pertinent physical examination on my patient. No changes have occurred unless specified. Time Spent With Patient Time: Total time managing care of this patient today ____ minutes.
[2023-11-18 10:39] VITALS: BP 145/72; PULSE 73; RESP 18; TEMP 36.7
--- NOTE | 2023-11-18 10:59 | W.PM.OPN ---
Operative Note Operative Note Date of Service: 11/18/23 Narrative: Operative Note Preop diagnosis: 1. Right middle finger Trigger finger 2. Right middle finger soft tissue mass Postop diagnosis: 1. Right middle finger Trigger finger 2. Right middle finger soft tissue mass Procedure: 1. Right middle finger A1 alexander release 2. Right middle finger soft tissue mass excisional biopsy Surgeon: Rupali Harrell MD Anesthesia: local block using 1% lidocaine with epinephrine Findings: No locking or catching after A1 alexander release. A small spherical soft tissue mass measuring approximately 6 mm in diameter was removed from the dorsal radial aspect of the middle finger at the proximal phalanx level. EBL: Less than 5 mL Tourniquet time: None Specimens: Right middle finger soft tissue mass sent for histopathology Complications: None Disposition: Brought to recovery room in stable condition Plan: Follow-up for 10-14 days for wound check and suture removal Indications: The patient is 73 years old, with a right middle finger trigger finger and a soft tissue mass dorsal to the proximal phalanx that have been unresponsive to nonoperative management. The risks and benefits of operative treatment including but not limited to risk of damage to blood vessels, nerves, tendons, infection, persistent pain, persistent symptoms, recurrence or possible need for additional surgery were discussed with the patient and the patient wishes to proceed with surgery. Procedure: Once consent was obtained a local block was performed in the preop area using a combination of 1% lidocaine with epinephrine. The patient was then brought back to the operating suite and placed on the operative table in supine position. The right upper extremity was prepped and draped in a standard surgical fashion. Once assured that we had a good block I made a 1.5 cm longitudinal incision centered over the soft tissue mass on the dorsal radial aspect of the right middle finger at the proximal phalanx level. The incision was made through the skin to the subcutaneous tissues using a 15. Blade. I then carefully dissected down to the level of the mass. There was a spherical early sheet pink colored soft tissue mass that measured about 6 mm in diameter. It was carefully dissected free from the surrounding tissues, removed from the patient and placed on the back table to be sent for histopathology. No further masses were appreciated. This point the wound was irrigated with normal saline and the skin edges reapproximated with some 5 0 Prolene suture material. Once assured that we had a good block, a 1.5 cm oblique incision was made centered over the A1 alexander of the right middle finger . The incision was made through the skin to the subcutaneous tissues using a #15 blade. Careful dissection was made down to the level of the A1 alexander using tenotomy scissors, with care being taken to protect the nearby neurovascular structures. A longitudinal incision was made in the A1 alexander 1st using a #15 blade, then using tenotomy scissors under direct visualization. The A1 alexander was noted to be thickened. Following our A1 alexander release, we no longer saw any locking or catching of the digit with flexion and extension. Once satisfied with our A1 alexander release the wound was copiously irrigated with normal saline and hemostasis was obtained with a brief period of local pressure. The skin edges were reapproximated with some 5.0 nylon suture material and a sterile dressing was applied. The patient appears to have tolerated the procedure well and with no complications. All digits were well vascularized at the conclusion of the case.
== END 2023-11-18 11:12 | disposition home or self-care (01) ==
PROVIDERS: PCP Internal Medicine; Visit Provider Orthopaedic Surgery
PROC: (CPT 26055; principal; 2023-11-18 09:10)
PROC: (CPT 26115; 2023-11-18 09:10)
DX: D18.01 Hemangioma of skin and subcutaneous tissue (principal); M65.331 Trigger finger, right middle finger; E55.9 Vitamin D deficiency, unspecified; M81.0 Age-related osteoporosis without current pathological fracture; Z88.8 Allergy status to other drugs, medicaments and biological substances; I10 Essential (primary) hypertension
CPT/HCPCS: 26115; 26055; 88307; J0171

== ENCOUNTER → 2023-11-18 08:02 | Outpatient (BNV) | payer OTHER, SELFPAY | PROVIDERS: PCP Internal Medicine; Visit Provider Orthopaedic Surgery | DX: M65.331 Trigger finger, right middle finger (principal); R22.31 Localized swelling, mass and lump, right upper limb | CPT/HCPCS: 26055; 26111 ==

== ENCOUNTER 2023-11-25 09:46 | Outpatient (AMB) | payer OTHER, SELFPAY ==
[2023-11-25 10:11] VITALS: BP 128/80; PULSE 75; O2SAT 97; BMI 36.5
--- NOTE | 2023-11-25 10:11 | A.OFFVIS_ITS ---
Intake Vital Signs 11/25/23 10:11 Height 4 ft 5.03 in Weight 146 lb 2.664 oz BMI 36.5 BP 128/80 Blood Pressure Location Rt brachial Position Sitting Pulse 75 Pulse Source Pulse Oximeter Pulse Oximetry (%) 97 Oxygen Delivery Method Room Air Intake Visit Reasons: follow up osteoporosis & prolia injection Intake Note: Patient last seen 05/25/23 presents today for follow up and prolia. 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 Accompanied by: Self / Same As Patient Allergies tizanidine Allergy (Intermediate, Verified 11/25/23 10:19) dry mouth Medication List - Last Reconciled 11/25/23 by Louie Kwok MD acetaminophen-codeine 300-30 mg 0.5 tabs PO Q8H PRN 30 days aspirin 81 mg PO DAILY 90 days [bath bench with arms As directed] cholecalciferol (vitamin D3) (Vitamin D3) 25 mcg PO DAILY cyclobenzaprine 10 mg PO Q8H PRN denosumab (Prolia) 60 mg subcut [id number] famotidine 20 mg PO DAILY PRN 90 days Grab bar As directed metoprolol succinate ER 25 mg PO DAILY naproxen 500 mg PO BID 30 days oxycodone-acetaminophen 5-325 mg 1 tab PO Q6H PRN [showerhead handheld As directed] HPI HPI Comments History of Present Illness Details This is a 73-year-old female with osteoporosis who presents for follow- up. She is here for Prolia injection. She had excision of swelling of right hand last week by hand surgeon, it turned out to be a capillary hemangioma. She has no complaints today. [facility] Medical History SVT (supraventricular tachycardia) Food bolus obstruction of intestine Compression fracture Osteoporosis Vitamin D deficiency Low back pain Osteoarthritis Polyarthralgia Hypovitaminosis D Obese GERD (gastroesophageal reflux disease) Essential hypertension Surgical History Hx of colonoscopy History of tubal ligation Family History Father Cancer Mother Cancer Son Past heart attack Social History Household Members: None Housing: Apartment Are you a primary managed care provider to a significant other at home: No Do you presently have visiting nurse or other home services: 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) Alcohol intake: never Patient Tobacco Use Status: Never used Tobacco e-Cigarette/Vaping Use: Never Used Second Hand Smoke Exposure: No service: No Current occupational status: disabled Sexual orientation: Straight/Heterosexual Gender identity: Female Cognitive needs: Yes Hearing needs: No Vision needs: No Review of Systems Const All systems reviewed & are unremarkable except as noted in HPI and below Physical Exam Vital Signs: Last Vital Signs Pulse 75 11/25/23 10:11 BP 128/80 11/25/23 10:11 Pulse Ox 97 11/25/23 10:11 Oxygen Delivery Method Room Air 11/25/23 10:11 BMI result Body Mass Index 36.5 Const General: cooperative, healthy appearing and comfortable Nutritional Appearance: obese Orientation/consciousness: patient oriented x3 Limitations: ambulation with cane HEENT Head: Yes normocephalic and Yes atraumatic Resp Effort & Inspection: normal respiratory effort and able to speak in complete sentences Skin General skin exam: no rashes or lesions noted Neuro General: patient oriented x3 Extrem Other: No active synovitis Office Meds Prolia 60 mg/mL subcutaneous syringe Performing Provider: Louie Kwok MD Performing Location: [facility] Rheumatology Administered by: Louie Kwok MD on 11/25/23 10:46 Dose Route Admin Location Dispensed Lot Number Expiration Date [facility] 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 60 mg subcut Left deltoid 1 mL [id number] 03/05/26 11512-767-70 AMGEN Assessment & Plan Assessment & Plan (1) Osteoporosis: Comment: dx before 2003 Previously treated with bisphosphonate for 5 years Started on Forteo October 2018 for severe osteoporosis T-score -3.9-completed 24 months of therapy Started on Prolia October 2020-present Code(s): M81.0 - Age-related osteoporosis without current pathological fracture Qualifiers: Osteoporosis type: age-related Presence of current pathological fracture: without current pathological fracture Qualified Code(s): M81.0 - Age- related osteoporosis without current pathological fracture Plan: Patient with a history of osteoporosis since at least 2003. Previously treated with Bisphosphonate for 5 years but patient is unsure of when she stopped medication. Patient has compression fracture listed in her problem list but does not recall any details about this. She was started on Forteo in October 2018 for severe osteoporosis found on DEXA scan done in February 2018 (T score -3.9 in lumbar spine). She completed 24 months of therapy with Forteo. She has now transitioned to Prolia. She received the 1st injection of Prolia in October 2020. She has been tolerating Prolia without issue. Repeat DEXA March 2022 with T- score is? -3.5 in the lumbar spinecompared to -3.9 in the lumbar spine in 2018. Will continue prolia. She is due for injection today and will receive this in the office. Monitoring labs are stable. Will repeat DEXA 04/2024. Labs before next visit in May/2024 Plan I spent 15 minutes reviewing patient's chart, evaluating patient, ordering diagnostic workup, counseling patient and documenting in the chart Orders: Orders XR DEXA axial skeleton 04/13/24 M81.0 - Age-related osteoporosis without current pathological fracture AMB Denosumab Injection Patient Supplied Today M81.0 - Age-related osteoporosis without current pathological fracture Basic Metabolic Panel 6 Months M81.0 - Age-related osteoporosis without current pathological fracture Coding Level of Care Code Est Pt Level 3 (35837) Diagnoses Age-related osteoporosis without current pathological fracture M81.0 Osteoporosis type: age-related Presence of current pathological fracture: without current pathological fracture
== END 2023-11-25 10:31 | disposition home or self-care (01) ==
PROVIDERS: PCP Internal Medicine; Visit Provider Student in an Organized Health Care Education/Training Program
DX: M81.0 Age-related osteoporosis without current pathological fracture (principal)
CPT/HCPCS: 99213

== ENCOUNTER → 2023-11-25 09:46 | Outpatient (BNVA) | payer OTHER, SELFPAY | PROVIDERS: PCP Internal Medicine; Visit Provider Student in an Organized Health Care Education/Training Program | DX: M81.0 Age-related osteoporosis without current pathological fracture (principal) | CPT/HCPCS: 96372; 99212; J0897 ==

== ENCOUNTER 2023-12-01 10:49 | Outpatient (AMB) | payer OTHER, SELFPAY ==
[2023-12-01 11:20] VITALS: BMI 35.8
--- NOTE | 2023-12-01 11:20 | MHC.OFFVIS ---
Intake Vital Signs 12/01/23 11:20 Height 4 ft 5 in Weight 143 lb BMI 35.8 Intake Visit Reasons: PO-Rt MF Trigger Release, Mass Exc 11/18/23 Intake Note: Katty 73 yr old female presents today for her PO visit for her right middle finger trigger release & Mass Exc 11/18/[address] Harrell. States her finger no longer locks but is having mild swelling and discomfort by her incision. Sutures removed in office. Allergies tizanidine Allergy (Intermediate, Verified 12/01/23 11:21) dry mouth HPI PO-Rt MF Trigger Release, Mass Exc 11/18/23 HPI Details Katty is a 73 year old right hand dominant [place]ian speaking woman who returns S/P right middle finger trigger release and mass excision, DOS: 11/18/23. She says she is doing well, without pain, but has some stiffness in her fingers. She is seen today still wearing her original dressing. [facility] Medical History SVT (supraventricular tachycardia) Food bolus obstruction of intestine Compression fracture Osteoporosis Vitamin D deficiency Low back pain Osteoarthritis Polyarthralgia Hypovitaminosis D Obese GERD (gastroesophageal reflux disease) Essential hypertension Surgical History Hx of colonoscopy History of tubal ligation Family History Father Cancer Mother Cancer Son Past heart attack Social History Household Members: None Housing: Apartment Are you a primary healthcare social worker to a significant other at home: No Do you presently have visiting nurse or other home services: 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) Alcohol intake: never Patient Tobacco Use Status: Never used Tobacco e-Cigarette/Vaping Use: Never Used Second Hand Smoke Exposure: No service: No Current occupational status: disabled Sexual orientation: Straight/Heterosexual Gender identity: Female Cognitive needs: Yes Hearing needs: No Vision needs: No Review of Systems Const All systems reviewed & are unremarkable except as noted in HPI and below Physical Exam Vital Signs: BMI result Body Mass Index 35.8 Const General: no acute distress and alert Orientation/consciousness: patient oriented x3 Neuro General: patient oriented x3 Extrem Other: The patient was alert oriented and in no acute distress The incision is healing well with no erythema drainage or evidence of infection. Sutures removed and Steri-Strips applied She was somewhat apprehensive about moving her hand. We worked on ROM exercises today in clinic. Before leaving clinic she could bring her fingers close to a week fist and back into extension. No locking or catching Sensation is intact Cap refill is brisk Pathology report 11/18/23 Diagnosis Soft tissue, right middle finger mass, excision: Capillary hemangioma; negative for malignancy Psych Appearance: grossly normal Affect: normal affect Attitude: cooperative Assessment & Plan Assessment & Plan (1) Trigger finger, right middle finger: Code(s): M65.331 - Trigger finger, right middle finger (2) Finger mass, right: Code(s): R22.31 - Localized swelling, mass and lump, right upper limb (3) Capillary hemangioma: Code(s): I78.1 - Nevus, non-neoplastic Plan Assessment and plan: 1. Right middle finger trigger finger, S/P release DOS: 11/18/23 2. Right middle finger capillary Hemangioma, S/P excision DOS: 11/18/23 No malignancy The patient appears to be doing well post-operatively I educated her about the post-operative course I discussed activity modifications, she is to lift nothing heavier than a cellphone for the next two weeks I demonstrated ROM exercises today in clinic She will perform gentle ROM exercises at home She should avoid any underwater activities for the next 5 days She should gently massage about the incision site to reduce the risk of hypersensitivity She can follow up prn Scribed for Rupali Harrell MD by Timothy Blake, product manager medical device, on 12/01/23 at 11:30 AM, EST. Coding Level of Care Code Global (93287) Diagnoses Trigger finger, right middle finger M65.331 Finger mass, right R22.31 Capillary hemangioma I78.1
== END 2023-12-01 11:34 | disposition home or self-care (01) ==
PROVIDERS: PCP Internal Medicine; Visit Provider Orthopaedic Surgery
DX: M65.331 Trigger finger, right middle finger (principal); R22.31 Localized swelling, mass and lump, right upper limb; I78.1 Nevus, non-neoplastic
CPT/HCPCS: 99024

== ENCOUNTER → 2023-12-01 10:49 | Outpatient (BNVA) | payer OTHER, SELFPAY | PROVIDERS: PCP Internal Medicine; Visit Provider Orthopaedic Surgery | DX: Z47.89 Encounter for other orthopedic aftercare (principal); R22.31 Localized swelling, mass and lump, right upper limb; I78.1 Nevus, non-neoplastic; Z87.39 Personal history of other diseases of the musculoskeletal system and connective tissue | CPT/HCPCS: 99212 ==

== ENCOUNTER 2024-03-21 09:10 | Outpatient (AMB) | payer OTHER, SELFPAY ==
--- NOTE | 2024-03-21 09:20 | A.OFFPC_ITS ---
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 Accompanied by: Self / Same As Patient Allergies tizanidine Allergy (Intermediate, Verified 03/21/24 09:40) dry mouth Medication List - Last Reconciled 03/21/24 by Angelina Stanley MD acetaminophen-codeine 300-30 mg 0.5 tabs PO Q8H PRN 30 days aspirin 81 mg PO DAILY 90 days [bath bench with arms As directed] cholecalciferol (vitamin D3) (Vitamin D3) 25 mcg PO DAILY cyclobenzaprine 10 mg PO Q8H PRN denosumab (Prolia) 60 mg subcut [id number] famotidine 20 mg PO DAILY PRN 90 days Grab bar As directed metoprolol succinate ER 25 mg PO DAILY naproxen 500 mg PO BID 30 days oxycodone-acetaminophen 5-325 mg 1 tab PO Q6H PRN [showerhead handheld As directed] Tobacco use date assessed: 09/21/23 Fall risk assessment: 1 Fall in past year Last assessed Fall Risk: 03/21/24 Dental Screening Dental Screen Date: 09/21/23 HPI HPI Comments History of Present Illness Details This is a 74-year-old female with hypertension, GERD, osteoporosis, supraventricular tachycardia and impaired glucose tolerance that comes today for follow-up on her conditions. Blood pressure stable. GERD controlle with med ication. Last DEXA scan was 2021 and has an appointment for next month for another DEXA scan. On Prolia given by Rheumatology. Supraventricular tachycardia has been stable with metoprolol. Fasting blood glucose is elevated and she denies any polydipsia, polyuria or unintentional weight loss. Fasting blood glucose will be repeated in few months. [facility] Medical History (Updated 03/21/24 @ 09:47 by Angelina Stanley MD) SVT (supraventricular tachycardia) Food bolus obstruction of intestine Compression fracture Osteoporosis Vitamin D deficiency Low back pain Osteoarthritis Polyarthralgia Hypovitaminosis D Obese GERD (gastroesophageal reflux disease) Essential hypertension Surgical History (Updated 03/21/24 @ 09:45 by Angelina Stanley MD) Hx of colonoscopy History of tubal ligation Family History Father Cancer Mother Cancer Son Past heart attack Social History Household Members: None Housing: Apartment Are you a primary career development facilitator to a significant other at home: No Do you presently have visiting nurse 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 Abdias Wu, Ramona Weinberg, Tk Alvarez and colleagues, with an educational ck from [employer]. Review of Systems Const All systems reviewed & are unremarkable except as noted in HPI and below Card Denies chest pain at rest, Denies chest pain with activity, Denies edema, Denies irregular heart rhythm, Denies claudication, Denies dyspnea, Denies dyspnea on exertion, Denies orthopnea, Denies paroxysmal nocturnal dyspnea and Denies slow heart rate Resp Denies cough, Denies dyspnea and Denies dyspnea on exertion GI Denies abdominal pain, Denies change in bowel habits, Denies excessive flatus, Denies nausea and Denies vomiting Physical exam (Primary Care) Vital Signs: Last Vital Signs BP 126/80 03/21/24 09:21 BMI result Body Mass Index 35.0 BMI Assessment/Plan discussion: High BMI High, discussed plan: lifestyle, weight reduction, dietary and physical activity Tobacco/Smoking Status: Tobacco use Status Tobacco use date assessed 09/21/23 03/21/24 09:27 Patient Tobacco Use Status Never used Tobacco 03/21/24 09:27 e-Cigarette/Vaping Use Never Used 03/21/24 09:27 Thrive Assessment: Date of Thrive Assessment Date Thrive assessed 09/21/23 03/21/24 09:27 Resp Effort & Inspection: normal respiratory effort Auscultation: clear to auscultation bilaterally Cardio Jugular venous distension: no JVD Rate: regular rate Rhythm: regular rhythm Heart sounds: S1 normal heart sound present and S2 normal heart sound present Extrem General: Yes full ROM Assessment and Plan Assessment & Plan (1) SVT (supraventricular tachycardia): Code(s): I47.1 - Supraventricular tachycardia Plan: Continue metoprolol. (2) Impaired glucose tolerance: Code(s): R73.02 - Impaired glucose tolerance (oral) Plan: Start low-carbohydrate diet. Repeat fasting blood glucose. (3) Osteoporosis: Comment: dx before 2003 Previously treated with bisphosphonate for 5 years Started on Forteo October 2018 for severe osteoporosis T-score -3.9-completed 24 months of therapy Started on Prolia October 2020-present Code(s): M81.0 - Age-related osteoporosis without current pathological fracture Qualifiers: Osteoporosis type: age-related Presence of current pathological fracture: without current pathological fracture Qualified Code(s): M81.0 - Age- related osteoporosis without current pathological fracture Plan: Continue Prolia. DEXA scan in April. Follow-up with rheumatology. (4) GERD (gastroesophageal reflux disease): Comment: Patient denies symptoms of GERD Code(s): K21.9 - Gastro-esophageal reflux disease without esophagitis Qualifiers: Esophagitis presence: esophagitis presence not specified Qualified Code(s): K21.9 - Gastro-esophageal reflux disease without esophagitis Plan: Continue famotidine. Orders: Orders Comprehensive [place]. Panel Fast Today R73.02 - Impaired glucose tolerance (oral) Lipid Panel Today E78.5 - Hyperlipidemia, unspecified Medications: New acetaminophen ER 1,300 mg (2 x 650 mg) PO Q8H PRN 180 tabs 6RF pain 30 days Coding Level of Care Code Est Pt Level 4 (35784) Complex EM visit Add On G2211 Diagnoses SVT (supraventricular tachycardia) I47.1 Impaired glucose tolerance R73.02 Age-related osteoporosis without current pathological fracture M81.0 Osteoporosis type: age-related Presence of current pathological fracture: without current pathological fracture Gastroesophageal reflux disease, unspecified whether esophagitis present K21.9 Esophagitis presence: esophagitis presence not specified Time Spent (min) 22
[2024-03-21 09:21] VITALS: BP 126/80; BMI 35.0
== END 2024-03-21 09:54 | disposition home or self-care (01) ==
PROVIDERS: PCP Internal Medicine; Visit Provider Internal Medicine
DX: I47.10 Supraventricular tachycardia, unspecified (principal); R73.02 Impaired glucose tolerance (oral); M81.0 Age-related osteoporosis without current pathological fracture; K21.9 Gastro-esophageal reflux disease without esophagitis
CPT/HCPCS: 99214; G2211

== ENCOUNTER 2024-03-27 07:46 | Day surgery (SDC) | payer OTHER, SELFPAY ==
[2024-03-23 15:14] VITALS: BMI 32.8
[2024-03-27 08:43] VITALS: BMI 33.1
--- NOTE | 2024-03-27 08:53 | HO.ANESPROP2 ---
Documented by User: Nancie Valente MD 03/27/24 09:25 HPI - Anesthesia Eval Consult details Narrative: for colonoscopy PMFSH Past Medical History Medical History SVT (supraventricular tachycardia) Food bolus obstruction of intestine Compression fracture Osteoporosis Vitamin D deficiency Low back pain Osteoarthritis Polyarthralgia Hypovitaminosis D Obese GERD (gastroesophageal reflux disease) Essential hypertension Family History Family History Father Cancer Mother Cancer Son Past heart attack Surgical History Surgical History Hx of colonoscopy History of tubal ligation Social History Social History Household Members: None Housing: Apartment Are you a primary transitional care manager to a significant other at home: No Do you presently have visiting nurse or other home services: 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) Alcohol intake: never Patient Tobacco Use Status: Never used Tobacco e-Cigarette/Vaping Use: Never Used Second Hand Smoke Exposure: No Use of substances other than those prescribed or required for medical reasons: No Are you DNR?: No Advance Directives: No Advance Directives Information Provided: Yes service: No Current occupational status: disabled Sexual orientation: Straight/Heterosexual Gender identity: Female Cognitive needs: Yes Hearing needs: No Vision needs: No Meds Allergies Allergy/AdvReac Type Severity Reaction Status Date / Time tizanidine Allergy Intermediate dry mouth Verified 03/21/24 09:40 Home Medications ?Medication ?Instructions ?Recorded ?Confirmed ?Last Taken ?Type cyclobenzaprine 10 mg tablet 10 mg PO Q8H PRN Muscle spasm 05/26/22 03/21/24 Unknown History Exam Airway Mallampati Class: II TM Dist: >3cm Neck ROM: Full Denture: Upper Heart: rrr Lungs: cta Assessment and Plan Assessment Anesthesia Assessment: Anesthesia Plan Discussed Final Anesthetic Review NPO: Yes ASA Class: II Final Preanesthetic Review: No Changes in Pt Med Stat, Meds/Allgs Chart Reviewed, Consent Obtained/Reviewed and Anes Risks/Benef Reviewed Patient Risk: Low Procedure Risk: Low Anesthetic Plan Anesthetic Plan: MAC: Disposition: Standard PACU Documented by User: Vickie Abebe MD [facility] Active Problems Active Problems: All Active Problems Impaired glucose tolerance (Acute) Capillary hemangioma (Acute) SVT (supraventricular tachycardia) (Acute) Physical exam (Acute) Trigger finger, right middle finger (Acute) Nausea & vomiting (Acute) Finger mass, right (Acute) Tubular adenoma of colon (Acute) Palpitations (Acute) Compression fracture (Acute) Low back pain (Acute) Osteoporosis (Acute) Polyarthralgia (Acute) Hypovitaminosis D (Acute) Obese (Acute) GERD (gastroesophageal reflux disease) (Acute) Essential hypertension (Acute) Past Medical History Medical History SVT (supraventricular tachycardia) Food bolus obstruction of intestine Compression fracture Osteoporosis Vitamin D deficiency Low back pain Osteoarthritis Polyarthralgia Hypovitaminosis D Obese GERD (gastroesophageal reflux disease) Essential hypertension Family History Family History Father Cancer Mother Cancer Son Past heart attack Family history of problems with anesthesia: No Surgical History Surgical History Hx of colonoscopy History of tubal ligation History of Problems with Anesthesia: No Social History Social History Household Members: None Housing: Apartment Are you a primary transitional care manager to a significant other at home: No Do you presently have visiting nurse or other home services: 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) Alcohol intake: never Patient Tobacco Use Status: Never used Tobacco e-Cigarette/Vaping Use: Never Used Second Hand Smoke Exposure: No Use of substances other than those prescribed or required for medical reasons: No Are you DNR?: No Advance Directives: No Advance Directives Information Provided: Yes service: No Current occupational status: disabled Sexual orientation: Straight/Heterosexual Gender identity: Female Cognitive needs: Yes Hearing needs: No Vision needs: No Meds Allergies Allergy/AdvReac Type Severity Reaction Status Date / Time tizanidine Allergy Intermediate dry mouth Verified 03/21/24 09:40 Active Medications: Current Medications Sodium Biphosphate/Sodium Phosphate (Sodium Phosphate,[place]-Dibasic 133 Ml Enema) 133 ml FL ONCE PRN PRN Reason: Poor Colonoscopy Prep Results Home Medications ?Medication ?Instructions ?Recorded ?Confirmed ?Last Taken ?Type cyclobenzaprine 10 mg tablet 10 mg PO Q8H PRN Muscle spasm 05/26/22 03/21/24 Unknown History Exam Height,Weight and Vital Signs: Height 4 ft 6 in Weight 62.312 kg Assessment and Plan Final Anesthetic Review Family History of Problems with Anesthesia: No History of Problems with Anesthesia: No
[2024-03-27 08:54] VITALS: BP 155/70; PULSE 73; RESP 16; TEMP 36.3; O2SAT 99
[2024-03-27] MEDS: Lactated Ringers 1,000 ML 50 ML IVCONT (09:19)
--- NOTE | 2024-03-27 09:32 | PC.NURSE ---
Dr. Singer at bedside, 24hr update documented on paper.
[2024-03-27 10:30] VITALS: BP 135/64; PULSE 86; RESP 18; TEMP 36.1; O2SAT 100
--- NOTE | 2024-03-27 10:32 | PM.OP ---
Brief Operative Note Date of Service: 03/27/24 Pre-op diagnosis: Screening Post-op diagnosis: other (Diverticulosis) Procedure: Colonoscopy to the cecum Surgeon: Abdias Singer MD Anesthesia: MAC Was an Marketing Technology Coordinator used for this Procedure?: No Estimated blood loss (mL): 0 Pathology: none sent Condition: stable Disposition: PACU
[2024-03-27 10:45] VITALS: BP 122/63; PULSE 79; RESP 18; TEMP 36.1; O2SAT 95
--- NOTE | 2024-03-27 10:48 | OP_ITS ---
DATE OF SERVICE: 03/27/2024 SURGEON: Abdias Singer MD INDICATIONS: The patient presents for evaluation of colorectal cancer screening and personal history of tubular adenoma of the colon. Full consent has been obtained from her for this, including risks of bleeding and perforation. PREOPERATIVE DIAGNOSIS: POSTOPERATIVE DIAGNOSIS: PROCEDURE PERFORMED: Colonoscopy to cecum. ESTIMATED BLOOD LOSS: COMPLICATIONS: ANESTHESIA: Monitored anesthesia care. ASSISTANTS: SPECIMENS: PREOPERATIVE DIAGNOSES: Colorectal cancer screening and personal history of tubular adenoma of the colon. POSTOPERATIVE DIAGNOSES: Colorectal cancer screening, personal history of tubular adenoma of the colon, diverticulosis, and internal hemorrhoids. DESCRIPTION OF PROCEDURE: The patient was placed in the left lateral decubitus position. The digital rectal exam revealed no abnormalities. The Olympus video pediatric colonoscope was then entered into the rectum and advanced to the cecum with the assistance of abdominal wall pressure. Once in the cecum, I did identify normal-appearing cecal pouch with appendiceal orifice and a normal-appearing ileocecal valve. The entire cecum and ileocecal valve appeared normal. There was transillumination of light deep in the right lower quadrant. The scope was slowly withdrawn assessing all mucosal surfaces carefully. Preparation was excellent. I did not visualize any sign of polyps, colitis, nor angiodysplasias. There was a mild amount of sigmoid diverticulosis. In the rectum, scope was retroflexed, visualizing internal hemorrhoids, but no other pathology. The rectal mucosa appeared normal. The scope was straightened and withdrawn from the patient. She tolerated the procedure well and was returned to the recovery area in stable condition. IMPRESSION: 1. Diverticulosis. 2. Internal hemorrhoids. PLAN: Given today's negative exam, as well as a negative colonoscopy in 2020, and her age, I do not think she would need any further screening colonoscopies. She will, otherwise, see me on a p.r.n. basis. She was advised that she could resume her aspirin today. MD NICK Mishra/SABIHA / [id number]
== END 2024-03-27 11:10 | disposition home or self-care (01) ==
PROVIDERS: PCP Student in an Organized Health Care Education/Training Program; Visit Provider Internal Medicine
PROC: 0DJD8ZZ Inspection of Lower Intestinal Tract, Via Natural or Artificial Opening Endoscopic (ICD-10-PCS; CPT 45378; principal; 2024-03-27 09:30)
DX: Z12.11 Encounter for screening for malignant neoplasm of colon (principal); Z86.010 Personal history of colon polyps; K57.30 Diverticulosis of large intestine without perforation or abscess without bleeding; K64.8 Other hemorrhoids; K21.9 Gastro-esophageal reflux disease without esophagitis; I10 Essential (primary) hypertension; Z79.82 Long term (current) use of aspirin; Z79.899 Other long term (current) drug therapy
CPT/HCPCS: G0105; J1596; J2704

== ENCOUNTER 2024-04-06 09:38 | Outpatient (REF) | payer OTHER, SELFPAY ==
--- NOTE | ~2024-04-06 | MM_ITS ---
EXAMINATION: BONE DENSITOMETRY CLINICAL INDICATION: Age-related osteoporosis without current pathological fracture. COMPARISON: Previous BD dated 03/13/2022 and baseline BD dated 10/20/2005. TECHNIQUE: Using a [employer] DXA System (software version: 13.1) manufactured by [employer], dual-energy x-ray absorptiometry was performed of the lumbar spine and left hip. The images are of good technical quality. Summary results are attached. FINDINGS: LEFT FEMUR, NECK: Current: BMD 0.989 g/cm2, Z-score 1.6, T-score -0.4, normal. Prior: BMD 0.884 g/cm2. Baseline: BMD 0.846 g/cm2. LEFT FEMUR, TOTAL: Current: BMD 0.981 g/cm2, Z-score 1.6, T-score -0.2, normal, 0.6% increase from previous, 2.5% increase from baseline (<5% change is not significant). Prior: BMD 0.975 g/cm2. Baseline: BMD 0.957 g/cm2. AP SPINE L1-L4: Current: BMD 0.721 g/cm2, Z-score -2.0, T-score -3.8, osteoporosis, 5.0% decrease from previous, 8.4% increase from baseline (<5% change is not significant). Prior: BMD 0.759 g/cm2. Baseline: BMD 0.665 g/cm2. IDENTIFIED RISK FACTORS: Osteoporosis, menopause. HISTORY OF FRACTURE: None listed. MEDICATIONS: Vitamin D, Prolia. MM/XR DEXA axial skeleton IMPRESSION: 1. DIAGNOSIS: Osteoporosis based on the lowest T-score value of -3.8 in the lumbar spine applying World Health Organization criteria. 2. 10-YEAR FRACTURE RISK PREDICTION, FRAX: According to the guidelines, FRAX calculation should only be performed on patients in the osteopenia bone density category. Therefore, FRAX was not performed on this patient. 3. Treatment Recommendations: NOF guidelines recommend consideration for treatment in postmenopausal women and men age 50 and older presenting with the following: -A hip or vertebral (clinical or morphometric) fracture. -T-score less than or equal to -2.5 at the femoral neck or spine after appropriate evaluation to exclude secondary causes. -Low bone mass at the hip or spine and a 10-year fracture probability by FRAX of greater than or equal to 3% for hip fracture or greater than or equal to 20% for major osteoporotic fracture based on the [place] adapted WHO algorithm. 4. Other Recommendations: All treatment decisions require clinical judgment and consideration of individual patient factors, including patient preferences, comorbidities, previous drug use, risk factors not captured in the FRAX model (e.g. frailty, falls, vitamin D deficiency, increased bone turnover, interval significant decline in bone density) and possible under or overestimation of fracture risk by FRAX. Additional medical evaluation for secondary cause of low bone mineral density may be appropriate. FUTURE SCAN RECOMMENDATION: People with diagnosed cases of osteoporosis or at high risk for fracture should have regular bone mineral density tests. For patients eligible for Medicare, routine testing is allowed once every 2 years. The testing frequency can be increased to one year for patients who have rapidly progressing disease, those who are receiving or discontinuing medical therapy to restore bone mass, or have additional risk factors.
== END 2024-04-06 09:39 | disposition home or self-care (01) ==
LOC: HO.MAMMO 09:38
PROVIDERS: PCP Internal Medicine; Visit Provider Student in an Organized Health Care Education/Training Program
DX: M81.0 Age-related osteoporosis without current pathological fracture (principal)
CPT/HCPCS: 77080

== ENCOUNTER 2024-05-22 08:24 | Outpatient (REF) | payer OTHER, SELFPAY ==
[2024-05-22 10:33] LABS: Alanine Aminotransferase 14 U/L (0-31); Albumin Level 4.4 g/dL (3.5-5.0); Alkaline Phosphatase 83 U/L (39-117); Anion Gap 13 (12-20); Aspartate Amino Transferase 19 U/L (5-31); Bilirubin Total 0.6 mg/dL (0.0-1.0); Blood Urea Nitrogen 16 mg/dL (9-16); Calcium 10.8 mg/dL (8.4-10.2); Carbon Dioxide 29 mmol/L (22-29); Chloride 103 mmol/L (96-108); Cholesterol 224 mg/dL (<200); Estimated Glomerular Filt Rate 58; Glucose Fasting 131 mg/dL (60-99); Glucose Random 130 mg/dL (60-115); HDL Cholesterol 76 mg/dL (>40); LDL Cholesterol Calculated 118 mg/dL (<100); Potassium 4.1 mmol/L (3.3-5.1); Sodium 141 mmol/L (135-145); Total Protein 7.6 g/dL (6.5-8.0); Triglycerides 154 mg/dL (<150)
[2024-05-26 13:23] LABS: Vitamin D 25-OH, D2 <4 ng/mL; Vitamin D 25-OH, D3 52 ng/mL; Vitamin D 25-OH, Total 52 ng/mL (30-100)
== END 2024-05-22 08:25 | disposition home or self-care (01) ==
LOC: HO.LAB 08:24
PROVIDERS: PCP Internal Medicine; Visit Provider Student in an Organized Health Care Education/Training Program
DX: M81.0 Age-related osteoporosis without current pathological fracture (principal); R73.02 Impaired glucose tolerance (oral); E78.5 Hyperlipidemia, unspecified; E55.9 Vitamin D deficiency, unspecified
CPT/HCPCS: 36415; 80048; 80053; 80061; 82306

== ENCOUNTER 2024-05-29 08:26 | Outpatient (REF) | payer OTHER, SELFPAY ==
[2024-05-29 10:05] LABS: Anion Gap 12 (12-20); Blood Urea Nitrogen 8 mg/dL (9-16); Calcium 10.1 mg/dL (8.4-10.2); Carbon Dioxide 28 mmol/L (22-29); Chloride 105 mmol/L (96-108); Estimated Glomerular Filt Rate > 60; Glucose Random 125 mg/dL (60-115); Potassium 4.2 mmol/L (3.3-5.1); Sodium 141 mmol/L (135-145)
[2024-05-30 12:34] LABS: Calcium, Ionized 5.4 mg/dL (4.7-5.5)
== END 2024-05-29 08:27 | disposition home or self-care (01) ==
LOC: HO.LAB 08:26
PROVIDERS: PCP Internal Medicine; Visit Provider Student in an Organized Health Care Education/Training Program
DX: M81.0 Age-related osteoporosis without current pathological fracture (principal); E83.52 Hypercalcemia
CPT/HCPCS: 36415; 80048; 82330

== ENCOUNTER 2024-06-01 10:21 | Outpatient (AMB) | payer OTHER, SELFPAY ==
--- NOTE | 2024-06-01 10:24 | A.OFFVIS_ITS ---
Vital Signs 06/01/24 10:30 Height 4 ft 6 in Weight 131 lb 9.855 oz BMI 31.7 BP 122/80 Blood Pressure Location Rt brachial Position Sitting Pulse 73 Pulse Source Pulse Oximeter Pulse Oximetry (%) 98 Oxygen Delivery Method Room Air Intake Visit Reasons: osteoporosis/prolia Intake Note: Patient presents for Osteoporosis/Prolia injection. Data Center Consultant Required: Yes Data Center Consultant Language: Bottom Stainer Services: Data Center Consultant Offered & Declined Data Center Consultant Name: Aniya Bourgeois Information Interpreted: non-clinical & clinical Data Clerk: Data Clerk Present Accompanied by: Daughter Allergies tizanidine Allergy (Intermediate, Verified 06/01/24 10:30) dry mouth Medication List - Last Reconciled 06/01/24 by Louie Kwok MD acetaminophen ER 1,300 mg (2 x 650 mg) PO Q8H PRN 30 days acetaminophen-codeine 300-30 mg 0.5 tabs PO Q8H PRN 30 days aspirin 81 mg PO DAILY 90 days [bath bench with arms As directed] cholecalciferol (vitamin D3) (Vitamin D3) 25 mcg PO DAILY cyclobenzaprine 10 mg PO Q8H PRN denosumab (Prolia) 60 mg subcut [id number] famotidine 20 mg PO DAILY PRN 90 days Grab bar As directed metoprolol succinate ER 25 mg PO DAILY naproxen 500 mg PO BID 30 days oxycodone-acetaminophen 5-325 mg 1 tab PO Q6H PRN [showerhead handheld As directed] HPI Comments Details: This is a 74-year-old female with osteoporosis who presents for follow-up. She is here for Prolia injection. She has no complaints today. 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) Alcohol intake: never Patient Tobacco Use Status: Never used Tobacco e-Cigarette/Vaping Use: Never Used Second Hand Smoke Exposure: No service: No Current occupational status: disabled Sexual orientation: Straight/Heterosexual Gender identity: Female Cognitive needs: Yes Hearing needs: No Vision needs: No Review of Systems Musc Denies arthralgias Physical Exam Vital Signs: Last Vital Signs Pulse 73 06/01/24 10:30 BP 122/80 06/01/24 10:30 Pulse Ox 98 06/01/24 10:30 Oxygen Delivery Method Room Air 06/01/24 10:30 BMI result Body Mass Index 31.7 Const General: cooperative, healthy appearing and comfortable Nutritional Appearance: obese Orientation/consciousness: patient oriented x3 Limitations: ambulation with cane HEENT Head: Yes normocephalic and Yes atraumatic Resp Effort & Inspection: normal respiratory effort and able to speak in complete sentences Skin General skin exam: no rashes or lesions noted Neuro General: patient oriented x3 Extrem Other: No active synovitis Office Meds Prolia 60 mg/mL subcutaneous syringe Performing Provider: Louie Kwok MD Performing Location: [facility] [place] Rheumatology Administered by: Louie Kwok MD on 06/01/24 10:50 Dose Route Admin Location Dispensed Lot Number Expiration Date [facility] [employer] 60 mg subcut RT deltoid 1 mL [id number] 05/05/26 52947-772-73 [facility]GEN Results Reviewed Results Reviewed: CLINICAL INDICATION: Age-related osteoporosis without current pathological fracture. COMPARISON: Previous BD dated 03/13/2022 and baseline BD dated 10/20/2005. TECHNIQUE: Using a [employer] DXA System (software version: 13.1) manufactured by [employer], dual-energy x-ray absorptiometry was performed of the lumbar spine and left hip. The images are of good technical quality. Summary results are attached. FINDINGS: LEFT FEMUR, NECK: Current: BMD 0.989 g/cm2, Z-score 1.6, T-score -0.4, normal. Prior: BMD 0.884 g/cm2. Baseline: BMD 0.846 g/cm2. LEFT FEMUR, TOTAL: Current: BMD 0.981 g/cm2, Z-score 1.6, T-score -0.2, normal, 0.6% increase from previous, 2.5% increase from baseline (<5% change is not significant). Prior: BMD 0.975 g/cm2. Baseline: BMD 0.957 g/cm2. AP SPINE L1-L4: Current: BMD 0.721 g/cm2, Z-score -2.0, T-score -3.8, osteoporosis, 5.0% decrease from previous, 8.4% increase from baseline (<5% change is not significant). Prior: BMD 0.759 g/cm2. Baseline: BMD 0.665 g/cm2. Assessment & Plan Assessment & Plan (1) Osteoporosis: Comment: dx before 2003 Previously treated with bisphosphonate for 5 years Started on Forteo October 2018 for severe osteoporosis T-score -3.9-completed 24 months of therapy Started on Prolia October 2020-present Code(s): M81.0 - Age-related osteoporosis without current pathological fracture Category: Medical Qualifiers: Osteoporosis type: age-related Presence of current pathological fracture: without current pathological fracture Qualified Code(s): M81.0 - Age- related osteoporosis without current pathological fracture Plan: Patient with a history of osteoporosis since at least 2003. Previously treated with Bisphosphonate for 5 years but patient is unsure of when she stopped medication. Patient has compression fracture listed in her problem list but does not recall any details about this. She was started on Forteo in October 2018 for severe osteoporosis found on DEXA scan done in February 2018 (T score -3.9 in lumbar spine). She completed 24 months of therapy with Forteo. She has now transitioned to Prolia. She received the 1st injection of Prolia in October 2020. She has been tolerating Prolia without issue. Repeat DEXA 04/2024 is stable. Will continue prolia. She is due for injection today and will receive this in the office. Monitoring labs are stable. Vitamin-D level at target. Continue current vitamin-D supplementation Will repeat DEXA 04/2026. Labs before next visit in 6 months Plan I spent 15 minutes reviewing patient's chart, evaluating patient, ordering diagnostic workup, counseling patient and documenting in the chart Orders: Orders Comprehensive Met. Panel 6 Months M81.0 - Age-related osteoporosis without current pathological fracture Vitamin D 25-OH (D2 and D3) 6 Months E55.9 - Vitamin D deficiency, unspecified AMB Denosumab Injection Patient Supplied Today M81.0 - Age-related osteoporosis without current pathological fracture Coding Level of Care Code Est Pt Level 3 (93435) Diagnoses Age-related osteoporosis without current pathological fracture M81.0 Osteoporosis type: age-related Presence of current pathological fracture: without current pathological fracture
[2024-06-01 10:30] VITALS: BP 122/80; PULSE 73; O2SAT 98; BMI 31.7
== END 2024-06-01 10:50 | disposition home or self-care (01) ==
PROVIDERS: PCP Internal Medicine; Visit Provider Student in an Organized Health Care Education/Training Program
DX: M81.0 Age-related osteoporosis without current pathological fracture (principal)
CPT/HCPCS: 99213

== ENCOUNTER → 2024-06-01 10:21 | Outpatient (BNVA) | payer OTHER, SELFPAY | PROVIDERS: PCP Internal Medicine; Visit Provider Student in an Organized Health Care Education/Training Program | DX: M81.0 Age-related osteoporosis without current pathological fracture (principal); E55.9 Vitamin D deficiency, unspecified; Z51.81 Encounter for therapeutic drug level monitoring; Z79.899 Other long term (current) drug therapy | CPT/HCPCS: 96372; 99212; J0897 ==

== ENCOUNTER 2024-06-15 12:54 | Outpatient (AMB) | payer OTHER, SELFPAY ==
--- NOTE | 2024-06-15 13:07 | A.OFFVIS_ITS ---
Vital Signs 06/15/24 13:13 Height 4 ft 6 in Weight 130 lb 8.218 oz BMI 31.5 BP 120/68 Blood Pressure Location Rt brachial Position Sitting Respiration 18 Pulse 76 Pulse Source Pulse Oximeter Pulse Oximetry (%) 97 Oxygen Delivery Method Room Air Intake Visit Reasons: osteoporosis\Lab Abnormal Intake Note: Patient presents for Osteoporosis/lab abnormal. Solar Installation Technician Required: Yes Solar Installation Technician Language: Duplication Specialist Services: Solar Installation Technician Present Solar Installation Technician Name: Rebeca [id number] Information Interpreted: non-clinical & clinical Allergies tizanidine Allergy (Intermediate, Verified 06/15/24 13:12) dry mouth HPI Comments Details: Patient is a 74-year-old female with osteoporosis on Prolia injections who presents for evaluation of hypercalcemia. She had blood work done after her last visit . At that time she was noted to have elevated calcium. With normal vitamin-D. This was rechecked including ionized calcium which returned normal. Patient denies any symptoms of hypercalcemia such as increased urination or increased thirst, nausea/vomiting/constipation/poor appetite, muscle weakness or twitches, palpitations or fainting. 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 home 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) Alcohol intake: never Patient Tobacco Use Status: Never used Tobacco e-Cigarette/Vaping Use: Never Used Second Hand Smoke Exposure: No service: No Current occupational status: disabled Sexual orientation: Straight/Heterosexual Gender identity: Female Cognitive needs: Yes Hearing needs: No Vision needs: No Review of Systems Const Details: Review of Systems Constitutional: Denies fever, chills, weight loss ENT: Denies vision changes, eye pain or eye redness, dental caries, dry mouth GI: Denies nausea, vomiting, diarrhea, abdominal pain, change in BM Pulm: Denies SOB, SAMUELS, hemoptysis, wheezing Cards: Denies chest pain, palpitations Skin: Denies Raynaud's, rash, nail changes, photosensitivity, SAP PORTAL DEVELOPER: Denies headaches, weakness, paresthesias, recurrent falls MSK: as per HPI All other systems reviewed and are unremarkable except noted above Physical Exam Vital Signs: Last Vital Signs Pulse 76 06/15/24 13:13 Resp 18 06/15/24 13:13 BP 120/68 06/15/24 13:13 Pulse Ox 97 06/15/24 13:13 Oxygen Delivery Method Room Air 06/15/24 13:13 BMI result Body Mass Index 31.5 Const Other: Physical Examination Patient well appearing and in no apparent painful distress Able to rise from chair without support. ?Gait normal. Constitutional Mucous membranes pink and moist patient alert and cooperative HEENT Conjunctiva and sclera clear. ?Pupils equal round and reactive to light. ?No lymphadenopathy. ?Normal dentition. Respiratory System Normal respiratory effort and able to speak in complete sentences. ?Clear to auscultation bilaterally. ?No crackles, rales, rhonchi, wheezes heard. Cardiac System Regular rate and rhythm. ?S1 and S2 heard no murmurs. ?Radial pulses intact bilaterally MSK No deformity, swelling, abnormalities noted to bilateral hands. ?No evidence of synovitis. ?Heberden's nodes noted. Results Reviewed Results Reviewed: Laboratory Tests 05/22/24 05/29/24 09:14 08:48 Sodium 141 Potassium 4.2 Chloride 105 Carbon Dioxide 28 Anion Gap 12 BUN 8 L Creatinine 0.72 Estimated GFR > 60 Calcium 10.8 H D 10.1 D Ionized Calcium 5.4 25-OH Vitamin D Total 52 Assessment & Plan Assessment & Plan (1) Hypercalcemia: Code(s): E83.52 - Hypercalcemia Category: Medical Plan: #Hypercalcemia Patient with hypercalcemia noted on blood check 9/60 cm as well as normal ionized calcium. Patient denies nausea, vomiting, constipation, poor appetite, increased thirst or frequent urination, muscle weakness or twitches, bone pain, depression or fatigue. This is likely a lab error. She can continue her 6 monthly Prolia injections and follow-up for her next dose in 6 months. Plan I spent 15 minutes reviewing the record and labs, seeing the patient, discussing the treatment plan and documenting in the medical record Coding Level of Care Code Est Pt Level 2 (94982) Diagnoses Hypercalcemia E83.52
[2024-06-15 13:13] VITALS: BP 120/68; PULSE 76; RESP 18; O2SAT 97; BMI 31.5
== END 2024-06-15 13:41 | disposition home or self-care (01) ==
PROVIDERS: PCP Internal Medicine; Visit Provider Student in an Organized Health Care Education/Training Program
DX: E83.52 Hypercalcemia (principal)
CPT/HCPCS: 99212

== ENCOUNTER → 2024-06-15 12:54 | Outpatient (BNVA) | payer OTHER, SELFPAY | PROVIDERS: PCP Internal Medicine; Visit Provider Student in an Organized Health Care Education/Training Program | DX: M81.0 Age-related osteoporosis without current pathological fracture (principal); E83.52 Hypercalcemia; Z79.899 Other long term (current) drug therapy | CPT/HCPCS: 99212 ==

== ENCOUNTER 2024-07-24 10:05 | Outpatient (REF) | payer OTHER, SELFPAY ==
--- NOTE | ~2024-07-24 | MM_ITS ---
EXAMINATION: MM SCREENING DIGITAL BREAST TOMOSYNTHESIS, BILATERAL CLINICAL INFORMATION: Screening. Asymptomatic. COMPARISON: Mammography: Comparison is made with available priors TECHNIQUE: Digital breast mammography with tomosynthesis is performed in both the craniocaudal and mediolateral oblique views along with computer-aided detection (CAD). FINDINGS: There are scattered areas of fibroglandular density (ACR BI-RADS breast composition Category b). There are no significant masses, abnormal calcifications, or other abnormalities. MM/MM tomosynthesis screening BI IMPRESSION: No mammographic evidence of malignancy. ASSESSMENT: BI-RADS BI-RADS 1 - Negative RECOMMENDATION: Routine annual mammography screening. 1 year F/U This examination should not preclude the clinical evaluation of a suspicious palpable abnormality. This patient's information was entered into a reminder system with a target due date for their next mammogram. Electronically signed by: Lidya Helm DO 08/01/2024 03:20 PM DOLORES
== END 2024-07-24 10:06 | disposition home or self-care (01) ==
LOC: HO.MAMMO 10:05
PROVIDERS: PCP Internal Medicine; Visit Provider Internal Medicine
DX: Z12.31 Encounter for screening mammogram for malignant neoplasm of breast (principal)
CPT/HCPCS: 77063; 77067

== ENCOUNTER → 2024-07-24 10:30 | Outpatient (BNV) | payer OTHER, SELFPAY | PROVIDERS: PCP Internal Medicine; Visit Provider Internal Medicine | DX: Z12.31 Encounter for screening mammogram for malignant neoplasm of breast (principal) | CPT/HCPCS: 77063; 77067 ==

== ENCOUNTER 2024-09-18 10:05 | Outpatient (AMB) | payer OTHER, SELFPAY ==
--- NOTE | 2024-09-18 10:16 | MHC.PC.OV ---
Vital Signs 09/18/24 10:18 Height 4 ft 6 in Weight 130 lb BMI 31.3 BP 122/80 Blood Pressure Location Lt brachial Position Sitting Intake Visit Reasons: 4M follow up Intake Note: Patient here for a 4 month follow up Accountancy Professor Required: Yes Accountancy Professor Language: Newspaper Photojournalist Name: Angelina Garber Jaden Information Interpreted: non-clinical & clinical Accompanied by: Self / Same As Patient Allergies tizanidine Allergy (Intermediate, Verified 09/18/24 10:29) dry mouth Medication List - Last Reconciled 09/18/24 by Angelina Stanley MD acetaminophen ER 1,300 mg (2 x 650 mg) PO Q8H PRN 30 days aspirin 81 mg PO DAILY 90 days [bath bench with arms As directed] cholecalciferol (vitamin D3) (Vitamin D3) 25 mcg PO DAILY cyclobenzaprine 10 mg PO Q8H PRN denosumab (Prolia) 60 mg subcut [id number] famotidine 20 mg PO DAILY PRN 90 days Grab bar As directed metoprolol succinate ER 25 mg PO DAILY [showerhead handheld As directed] Tobacco use date assessed: 09/18/24 Fall risk assessment: 1 Fall in past year Last assessed Fall Risk: 09/18/24 Dental Screening Dental Screen Date: 09/18/24 Did you have a dental visit in the last 12 months?: No Did you have a dental problem in the last 6 months where you did not have access to dental care?: No Was dental information given to patient?: Patient has dentist HPI HPI Comments History of Present Illness Details The patient is a 74-year-old female presenting with a wellness visit. Her osteoporosis management includes receiving Prolia injections biannually, with her last bone density scan performed a year ago. There were no new developments mentioned regarding her osteoporosis. The patient also deals with supraventricular tachycardia, for which she is under regular monitoring. During previous appointments, she reported a slight elevation in her random glucose levels, although these have not required immediate intervention. Her tetanus and pneumonia immunization was updated approximately five years ago at the age of 69. She adheres to her medication regimen, which includes Tylenol, low-dose aspirin (81 mg), Vitamin D, and cyclobenzaprine as needed. - Received Prolia for osteoporosis management every 6 months. - Updated tetanus vaccine approximately 5 years ago. - Flu and COVID-19 vaccinations are up to date. - Last colonoscopy conducted in 2023 with normal results. - Monitoring of glucose levels advised for follow-up in approximately four months, performed in a fasting state. - Mammogram done 2023. - DEXA done 2023 and next DEXA should be 2025. [facility] Medical History SVT (supraventricular tachycardia) Food bolus obstruction of intestine Compression fracture Osteoporosis Vitamin D deficiency Low back pain Osteoarthritis Polyarthralgia Hypovitaminosis D Obese GERD (gastroesophageal reflux disease) Essential hypertension Surgical History Hx of colonoscopy History of tubal ligation Family History Father Cancer Mother Cancer Son Past heart attack Social History Household Members: None Housing: Apartment Are you a primary animal care worker to a significant other at home: No Do you presently have visiting nurse or 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 1. Little interest or pleasure in doing things: not at all 2. Feeling down, depressed, or hopeless: not at all 3. Trouble falling or staying asleep, or sleeping too much: not at all 4. Feeling tired or having little energy: not at all 5. Poor appetite or overeating: not at all 6. Feeling bad about yourself - or that you are a failure or have let yourself or your family down: not at all 7. Trouble concentrating on things, such as reading the newspaper or watching television: not at all 8. Moving or speaking so slowly that other people could have noticed. Or the opposite - being so fidgety or restless that you have been moving around a lot more than usual: not at all 9. Thoughts that you would be better off or of hurting yourself in some way: not at all Total score: 0 Depression Screening Interpretation: Negative Depression Screening Done: Yes 38422 - PHQ-9 Billing: Yes Source: Developed by Drs. Abdias Wu, Ramona Weinberg, Tk Alvarez and colleagues, with an educational ck from [employer]. Thrive Questionnaire Date Thrive assessed: 09/18/24 I am a: Patient What is your living situation today?: I have a steady place to live Within the past 12 months, did the food you bought not last and you didn't have the money to get more?: Never true Within the past 12 months, did you worry whether your food would run out before you got money to buy more?: Never true Do you have trouble paying for medicines?: No Do you have trouble getting transportation to medical appointments?: No Do you have trouble paying your heating and electricity bill?: No Do you have trouble taking care of your child, family member or friend?: No Do you have trouble with day-to-day activities such as bathing, preparing meals, shopping, managing finances, etc.?: No Are you currently unemployed and looking for a job?: No Are you interested in more education?: No Please select the resources that you would like help with: None Currently or been in a relationship where the following occur: No concerns reported THRIVE Score: 0 AUDIT C Alcohol Use Questionnaire (AUDIT-C) 1. How often do you have a drink containing alcohol?: Never Total Score: 0 Score Reviewed/Action Taken: No RADHA-7 AMB Questionnaire RADHA-7 Date RADHA - 7 assessed: 09/18/24 Feeling nervous, anxious, or on edge: 0 = Not at all Not being able to stop or control worryin = Not at all Worrying too much about different things: 0 = Not at all Trouble relaxin = Not at all Being so restless that it is hard to sit still: 0 = Not at all Becoming easily annoyed or irritable: 0 = Not at all Feeling afraid as if something awful might happen: 0 = Not at all Total RADHA-7 score (0-4 normal; 5-9 mild; 10-14 moderate; 15-21 severe): 0 Source: Developed by Drs. Abdias uW, Ramona Weinberg, Tk Alvarez and colleagues, with an educational ck from [employer]. RADHA-7 Assessment Billing RADHA-7 Assessment Tool: RADHA-7 Assessment 86537 Review of Systems Const All systems reviewed & are unremarkable except as noted in HPI and below Eyes Reports no additional complaints, Denies change in vision and Denies other visual disturbances Card Denies chest pain at rest, Denies chest pain with activity, Denies edema, Denies irregular heart rhythm, Denies claudication, Denies dyspnea, Denies dyspnea on exertion, Denies orthopnea, Denies paroxysmal nocturnal dyspnea and Denies slow heart rate Resp Denies cough, Denies dyspnea and Denies dyspnea on exertion GI Denies abdominal pain, Denies change in bowel habits, Denies excessive flatus, Denies nausea and Denies vomiting Physical exam (Primary Care) Vital Signs: Last Vital Signs BP 122/80 09/18/24 10:18 BMI result Body Mass Index 31.3 BMI Assessment/Plan discussion: High BMI High, discussed plan: lifestyle, weight reduction, dietary and physical activity Tobacco/Smoking Status: Tobacco use Status Tobacco use date assessed 09/18/24 09/18/24 10:27 Patient Tobacco Use Status Never used Tobacco 09/18/24 10:27 e-Cigarette/Vaping Use Never Used 09/18/24 10:27 PHQ-9: PHQ-9 Score PHQ-9: Total score 0 09/18/24 10:49 Depression Screening Interpretation: Negative Thrive Assessment: Date of Thrive Assessment Date Thrive assessed 09/18/24 09/18/24 10:27 Currently or been in a relationship where the following occur: No concerns reported Const General: cooperative Nutritional Appearance: obese Limitations: ambulation with cane HENMT Head: Yes normal to inspection, Yes normocephalic and Yes atraumatic Ears: external ears normal Eyes General: appearance normal, both eyes and all related structures Eyelids: Yes eyelids normal Conjunctivae: conjunctivae normal Neck Neck: Yes normal visual inspection and Yes supple Resp Effort & Inspection: normal respiratory effort Auscultation: clear to auscultation bilaterally Cardio Jugular venous distension: no JVD Rate: regular rate Rhythm: regular rhythm Heart sounds: S1 normal heart sound present and S2 normal heart sound present GI Inspection: Yes normal to inspection Palpation (GI): Soft to palpation and nontender Auscultation: normal bowel sounds Skin General skin exam: no rashes or lesions noted Neuro General: no focal motor deficits Extrem General: Yes full ROM Psych Appearance: grossly normal Office Procedures Flu Questionnaire Does the patient have a severe egg allergy?: No Immunizations Fluarix Triv [id number] (PF) 45 mcg (15 mcg x 3)/0.5 mL IM syringe Performing Provider: Angelina Stanley MD [facility] Documented (not given) by: NYDIA Jennings on 09/18/24 10:50 Reason Not Given: Received Previously Coding Level of Care Code Est Pt Prev Care >65y(55530) Diagnoses Physical exam Z00.00 SVT (supraventricular tachycardia) I47.1 Additional Codes RADHA-7 Assessment Billing - RADHA-7 Assessment Tool: RADHA-7 Assessment 22945 ([id number]) PHQ-9 - 71185 - PHQ-9 Billing: Yes ([id number]) Time Spent (min) 31 Assessment & Plan Assessment & Plan (1) Physical exam: Code(s): Z00.00 - Encounter for general adult medical examination without abnormal findings Category: Medical (2) SVT (supraventricular tachycardia): Code(s): I47.1 - Supraventricular tachycardia Category: Medical Plan - Continue biannual Prolia injections for osteoporosis management. - Arrange follow-up blood glucose testing in four months to monitor for any persisting hyperglycemia. - Ensure regular monitoring of supraventricular tachycardia and continue current management. Patient was informed and verbally consented to the use of an ambient scribe for clinic note documentation during this visit. During this visit, I confirmed that the patient is current on all recommended immunizations, including flu and COVID-19 vaccines, and discussed her continuation of osteoporosis treatment with Prolia injections every six months. We reviewed her lab values, specifically noting a slight elevation in her random glucose level, and advised repeat testing in four months under fasting conditions. The patient is advised to maintain her current medication regimen for supraventricular tachycardia and is encouraged to report any symptomatic changes promptly. Additionally, I explained the importance of annual wellness exams and routine cardiovascular and glucose monitoring as preventative health measures. Orders: Orders Lipid Panel Today E78.5 - Hyperlipidemia, unspecified, Z00.00 - Encounter for general adult medical examination without abnormal findings Comprehensive [place]. Panel Fast Today Z00.00 - Encounter for general adult medical examination without abnormal findings Vitamin D 25-OH Total Today E55.9 - Vitamin D deficiency, unspecified Influenza [id number] Immunization Today Z23 - Encounter for immunization Medications: Changed From cyclobenzaprine 10 mg PO Q8H PRN Muscle spasm To cyclobenzaprine 10 mg PO Q8H PRN 90 tabs 0RF Muscle spasm 30 days Patient Instructions: - Continue with current medications as prescribed. - Schedule fasting blood glucose tests in four months. - Maintain regular appointments for Prolia injections every six months. - Monitor heart symptoms and report any changes. - Ensure immunizations remain up-to-date. - Follow up with annual wellness exams and any additional recommended tests.
[2024-09-18 10:18] VITALS: BP 122/80; BMI 31.3
== END 2024-09-18 10:41 | disposition home or self-care (01) ==
PROVIDERS: PCP Internal Medicine; Visit Provider Internal Medicine
DX: Z00.00 Encounter for general adult medical examination without abnormal findings (principal); I47.10 Supraventricular tachycardia, unspecified; Z23 Encounter for immunization

== ENCOUNTER → 2024-09-18 10:05 | Outpatient (BNVA) | payer OTHER, SELFPAY | PROVIDERS: PCP Internal Medicine; Visit Provider Internal Medicine | DX: Z00.00 Encounter for general adult medical examination without abnormal findings (principal); I47.10 Supraventricular tachycardia, unspecified; E78.5 Hyperlipidemia, unspecified; E55.9 Vitamin D deficiency, unspecified | CPT/HCPCS: 90471; 96127; 99397 ==

== ENCOUNTER 2024-09-27 12:55 | Outpatient (AMB) | payer OTHER, SELFPAY ==
--- NOTE | 2024-09-27 13:02 | MHC.OFFVIS ---
Vital Signs 09/27/24 13:03 Height 4 ft 6 in Weight 133 lb 2.547 oz BMI 32.1 BP 120/76 Blood Pressure Location Lt brachial Position Sitting Pulse 77 Pulse Source Monitor Intake Visit Reasons: 1 yr fu Intake Note: 1 yr f/up Printed Circuit Board Pcb Designer Required: No Printed Circuit Board Pcb Designer Services: Printed Circuit Board Pcb Designer Offered & Declined Printed Circuit Board Pcb Designer Name: daughter/albanian Accompanied by: Daughter Allergies tizanidine Allergy (Intermediate, Verified 09/18/24 10:29) dry mouth Medication List - Last Reconciled 09/27/24 by Jadon Tejeda MD acetaminophen ER 1,300 mg (2 x 650 mg) PO Q8H PRN 30 days aspirin 81 mg PO DAILY 90 days [bath bench with arms As directed] cholecalciferol (vitamin D3) (Vitamin D3) 25 mcg PO DAILY cyclobenzaprine 10 mg PO Q8H PRN 30 days denosumab (Prolia) 60 mg subcut [id number] famotidine 20 mg PO DAILY PRN 90 days Grab bar As directed metoprolol succinate ER 25 mg PO DAILY [showerhead handheld As directed] HPI Comments Details: Pleasant 74-year-old lady who is here for palpitations and episode of supraventricular tachycardia. She has never had palpitations before. June 05 2022 she was in the emergency department with palpitations, shortness of breath and both arm weakness/ numbness. She was noticed to be in supraventricular tachycardia with heart rate close to 196 beats per minute. Since then she has not had any further episodes. She has background of hypertension. She has no chest discomfort or shortness of breath with activities. EKG showing sinus rhythm without any significant changes. Echocardiography showed moderate septal hypertrophy but otherwise wall motion was normal and normal biventricular function was noted. Holter monitor did not show any arrhythmia. Her metoprolol succinate was increased to 25 mg daily. She returns for follow-up and has been doing well. She has no palpitations. No chest discomfort shortness of breath. She can walk at a slow pace more than 1 block. 09/27/2024: She returns for follow-up. She has not had any further palpitations. Previous echocardiography showed normal biventricular function with moderate septal asymmetric hypertrophy. No dizziness or syncope. No chest pains or shortness of breath. Doing quite well on follow-up. [facility] Medical History SVT (supraventricular tachycardia) Food bolus obstruction of intestine Compression fracture Osteoporosis Vitamin D deficiency Low back pain Osteoarthritis Polyarthralgia Hypovitaminosis D Obese GERD (gastroesophageal reflux disease) Essential hypertension Surgical History Hx of colonoscopy History of tubal ligation Family History Father Cancer Mother Cancer Son Past heart attack Social History Household Members: None Housing: Apartment Are you a primary ocular care aide to a significant other at home: No Do you presently have visiting nurse or 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) Alcohol intake: never Patient Tobacco Use Status: Never used Tobacco e-Cigarette/Vaping Use: Never Used Second Hand Smoke Exposure: No service: No Current occupational status: disabled Sexual orientation: Straight/Heterosexual Gender identity: Female Cognitive needs: Yes Hearing needs: No Vision needs: No Review of Systems Const Denies chills, Denies fatigue, Denies fever(s), Denies frequent falls, Denies weakness, Denies weight gain and Denies weight loss ENT Denies dizziness Card Denies chest pain, Denies leg edema, Denies lightheadedness, Denies palpitations, Denies dyspnea and Denies dyspnea on exertion Resp Denies cough, Denies dyspnea and Denies dyspnea on exertion GI Denies hematochezia Musc Denies abnormal gait, Denies muscle weakness, Denies numbness, Denies radiating pain into limb and Denies tingling Neuro Denies abnormal gait, Denies dizziness, Denies frequent falls, Denies numbness, Denies tingling and Denies weakness Endo Denies fatigue and Denies palpitations Physical Exam Vital Signs: Last Vital Signs Pulse 77 09/27/24 13:03 BP 120/76 09/27/24 13:03 BMI result Body Mass Index 32.1 GENERAL APPEARANCE: in no acute distress, pleasant. NECK: no carotid bruit, no jugular venous distention. SKIN: no suspicious lesions, warm and dry. HEART: no murmurs, regular rate and rhythm. LUNGS: clear to auscultation bilaterally. ABDOMEN: soft, nontender. EXTREMITIES: no edema. PERIPHERAL PULSES: equal. NEUROLOGIC: No gross deficits, AAO X 3 Office Procedures EKG Details: Sinus rhythm 77 beats per minute, normal axis, nonspecific T-wave changes, QTC 423 milliseconds. [id number], Complete Assessment & Plan Assessment & Plan (1) SVT (supraventricular tachycardia): Code(s): I47.1 - Supraventricular tachycardia Category: Medical Plan [age] year female who is here for follow-up. She has background history of supraventricular tachycardia. She has not had any recent episodes. Blood pressure is well controlled. She is taking Toprol-XL 25 mg daily. Clinically stable. She will see us back in 1 year. Thank you for allowing me to participate in the care of your patient. Please feel free to contact me if you have any questions. Coding Level of Care Code Est Pt Level 3 (06768) Diagnoses SVT (supraventricular tachycardia) I47.1 CPT Codes EKG - CPT: 03158-[id number], Complete ([id number])
[2024-09-27 13:03] VITALS: BP 120/76; PULSE 77; BMI 32.1
--- OUTSIDE RECORDS SUMMARY | 2024-09-27 14:46 | XMS_ITS | Encounter Summary ---
Author Organization [employer] [facility] Address [address] [place] [address] Care Team Providers Care Stock Chaser Name Role Phone Unavailable Primary Care Provider Unavailabl e Encounter Details Date Type Department Care Team (Latest Contact Info) Description 01/13/2022 Abstract [facility] CONVERSIONS Dental, Provider, DDS Social History Tobacco Use Types Packs/Day Years Used Date Smoking Tobacco: Never Assessed Comments Unknown Sex and Gender Information Value Date Recorded Sex Assigned at Female 07/06/2022 10:16 AM EDT Legal Sex Female 10:16 AM EDT Gender Identity Female 07/06/2022 10:16 AM EDT Sexual Orientation Straight 07/06/2022 10 :16 AM EDT documented as of this encounter Plan of Treatment Upcoming Encounters Date Type Department Care Team (Late st Contact Info) Description 10/09/2024 10:30 AM EST Office Visit [facility] ADULT DENTAL [address] [place] [address] Hoffman-Tate, Diana, DDS [address] [place] [address] documented as of this encounter Visit Diagnoses Not on filedocumented in this encounter
--- OUTSIDE RECORDS SUMMARY | 2024-09-27 14:46 | XMS_ITS | Encounter Summary ---
Author Organization [employer] [facility] Address [address] [place] [address] Care Team Providers Care Block Splitter Operator Name Role Phone Unavailable Primary Care Provider Unavailabl e Encounter Details Date Type Department Care Team (Late st Contact Info) Description 12/09/2022 Abstract [facility] ADULT DENTAL [address] [place] [address] Tk Cannon, DDS [address] [place] [address] Social History Tobacco Use Types Packs/Day Years Used Date Smoking Tobacco: Never Passive Smoke Exposure: Never Smokeless Tobacco: Never Comments Unknown Sex and Gender Information Value [...] Description 10/09/2024 10:30 AM EST Office Visit [facility] [address] [place] [address] Yasmin-TateDiana deluca, DDS [address] [place] [address] documented as of this encounter Visit Diagnoses Not on filedocumented in this encounter
--- OUTSIDE RECORDS SUMMARY | 2024-09-27 14:46 | XMS_ITS | Clinical Summary ---
Author Organization [employer] Address [address] [facility] [address] [place] [address] Care Team Providers Care Fire Information Officer Name Role Phone Unavailable Primary Care Provider Unavailabl e Allergies Active Allergy Reactions Criticality Noted Date Comments Oxycodone-Acetaminophen Other Medium 10/05/2022 Pt gets vomiting and dizziness Medications aspirin 81 MG EC tablet take 1 tablet (81MG) by oral route every day 7 Active cholecalciferol (Vitamin D3) 25 MCG (1000 UT) tablet TOME REGINE TABLETA TODOS LOS D 2 Active cyclobenzaprine (Flexeril) 10 MG tablet TOME REGINE TABLETA CADA OCHO HORAS PARA EL ESPASMO MUSCULAR CUANDO SEA NECESARIO 2 Active famotidine (Pepcid) 20 MG tablet Take 20 mg by mouth 2 times daily. 2 Active metoprolol succinate XL (Toprol-XL) 25 MG 24 hr tablet Take 25 mg by mouth in the morning. 3 Active naproxen (Naprosyn) 500 MG tablet TAKE 1 TABLET ORALLY 2 TIMES A DAY NEEDED FOR PAIN FOR 30 DAYS 2 Active acetaminophen-c odeine (TYLENOL/CODEIN E #3) 300-30 MG tablet Take 1 tablet by mouth every 8 (eight) hours. 7 Active Active Problems Problem Noted Date Diagnosed Date Missing teeth, acquired 07/10/2024 Open fracture of tooth 07/06/2024 Ill-fitting dentures 07/06/2024 Extruded tooth 12/31/2023 Excessive attrition of teeth, limited to enamel 05/24/2023 History of tooth extraction 01/22/2023 Severe generalized gingival recession 10/05/2022 Periodontal disease 10/05/2022 Bone loss 10/05/2022 Obesity 03/07/2012 Backache 02/10/2012 Gastroesophageal reflux disease 02/10/2012 Hypertension 02/10/2012 Osteoporosis 02/10/2012 Encounters Date Type Department Care Team Description 09/12/2024 9:00 AM EST Office Visit [facility] [address] [place] [address] ZanPhuong Dental plaque (Primary Dx); Dental calculus; Encounter for dental examination; Periodontal disease 07/10/2024 10:00 AM EST Office Visit [facility] [address] [place] [address] Tk Cannon DDS Extruded tooth (Primary Dx); Missing teeth, acquired; History of tooth extraction, unspecified edentulism class 07/06/2024 9:00 AM EDT Office Visit [facility] [address] [place] [address] Tk Cannon DDS Periodontal disease (Primary Dx); Open fracture of tooth, initial encounter; Ill-fitting dentures from Last 3 Months Immunizations Name Administration Dates Next Due Influenza High-dose Quadriva lent Preservative Free 05/13/2023,05/14/2022,05/07/2020 Influenza injectable quadriv alent IIV4 with preservative 06/26/2015 Influenza injectable quadriv alent preservative free 04/28/2021,07/16/2016 Influenza, High Dose Seasona l, Preservative Free 04/19/2017 Influenza, IIV3, injectable 05/31/2014 Influenza, Split (incl. luis fied surface antigen) 07/27/2013,05/11/2012 Influenza, trivalent, adjuvanted 05/01/2019,0809/2017 Pfizer Covid-19 Vaccine 12+ 06/15/2023 Pneumococcal Polysaccharide PPSV23 06/19/2019 TD (adult), 2 Lf tetanus tox oid, preservative free, adsorbed 09/25/2009 Td (adult), 5 Lf tetanus tox oid, preservative free, adsorbed 06/19/2019 Tdap 07/27/2013 Zoster, Recombinant 01/29/2022,06/26/2019 Zoster, live 05/31/2014 Social History Tobacco Use Types Packs/Day Years Used Date Smoking Tobacco: Never Passive Smoke Exposure: Never Smokeless Tobacco: Never Tobacco Cessation:Counseling Given: Not Answered Alcohol Use Standard Drinks/Week Comments Never 0 (1 standard drink = 0.6 oz pur e alcohol) Comments Unknown Sex and Gender Information Value Date Recorded Sex Assigned at Female 07/06/2022 10:16 AM EDT Legal Sex Female 10:16 AM EDT Gender Identity Female 07/06/2022 10:16 AM EDT Sexual Orientation Straight 07/06/2022 10 :16 AM EDT Last Filed Vital Signs Vital Sign Reading Time Taken Comments Blood Pressure 126/70 09/12/2024 8:47 AM EST Pulse 69 05/18/2024 2:53 PM EDT Temperature - - Respiratory Rate - - Oxygen Saturation - - Inhaled Oxygen Concentration - - Weight - - Height - - Body Mass Index - - Plan of Treatment Upcoming Encounters Date Type Department Care Team (Late st Contact Info) Description 10/09/2024 10:30 AM EST Office Visit [facility] [address] [place] [address] Hoffman-Tate, Diana, DDS [address] [place] [address] Health Maintenance Due Date Last Done Comments CT Colonography 1949 Colonoscopy 1949 Colorectal Cancer Screening 1949 Depression Screening 1949 FIT DNA/Cologuard 1949 FIT 1949 FOBT 1949 Lipid Panel 1949 SDOH Screening 1949 Sigmoidoscopy 1949 Alcohol/Substance Use Screening 1961 Hepatitis C Screening 1967 RSV Patients and Patients Aged 60 years or older (1 - 1-dose 75+ series) 2024 COVID-19 Vaccine ( season) 2024 06/15/2023, 07/15/2022, 01/19/2022, Additional history exists Dental Oral Exam 03/13/2025 09/12/2024, 01/2024, 04/26/2023, Additional history exists Dental Prophylaxis 03/13/2025 09/12/2024, 0 11/09/2023, 04/26/2023, Additional history exists Tobacco Screening 09/12/2025 09/12/2024 Dental X-Ray: Bitewings 09/13/2025 09/12/19, 04/26/2023, 10/05/2022 Dental X-Ray: Full Mouth 04/27/2026 04/26/2023 DTaP/Tdap/Td Vaccines (3 - Td or Tdap) 06/19/2029 06/19/2019, 07/27/2013, 09/25/2009 Zoster Vaccines Completed 01/29/2022, 06/07, 05/31/2014 Pneumococcal Vaccine: 65+ Years Completed 04/14/2024, 06/19/2019 Influenza Vaccine Completed 05/09/2024, , 05/14/2022, Additional history exists HIB Vaccines Aged Out No longer eligi ble based on patient's age to complete this topic HPV Vaccines Aged Out No longer eligi ble based on patient's age to complete this topic Hepatitis A Vaccines Aged Out No long er eligible based on patient's age to complete this topic Hepatitis B Vaccines Aged Out No long er eligible based on patient's age to complete this topic IPV Vaccines Aged Out No longer eligi ble based on patient's age to complete this topic Meningococcal Vaccine Aged Out No mike chelsea eligible based on patient's age to complete this topic RSV under 20 months Aged Out No longe r eligible based on patient's age to complete this topic Rotavirus Vaccines Aged Out No longer eligible based on patient's age to complete this topic Procedures Procedure Name Priority Date/Time Associated Diagnosis Comments COMPREHENSIVE PERIODONTAL EVALUATION - NEW OR ESTABLISHED PATIENT Routine 09/12/2024 9:00 AM EST Dental plaque Dental calculus Encounter for dental examination Periodontal disease PERIODIC ORAL EVALUATION - ESTABLISHED PATIENT Routine 09/12/2024 9:00 AM EST Dental plaque Dental calculus Encounter for dental examination Periodontal disease INTRAORAL - PERIAPICAL EACH ADDITIONAL RADIOGRAPHIC IMAGE Routine 09/12/2024 9:00 AM EST INTRAORAL - PERIAPICAL EACH ADDITIONAL RADIOGRAPHIC IMAGE Routine 09/12/2024 9:00 AM EST INTRAORAL - PERIAPICAL FIRST RADIOGRAPHIC IMAGE Routine 09/12/2024 9:00 AM EST BITEWINGS - 2 RADIOGRAPHIC IMAGES Routine 09/12/2024 9:00 AM EST ORAL HYGIENE INSTRUCTIONS Routine 2024 9:00 AM EST Dental plaque Dental calculus ADJUNCTIVE GENERAL SERVICES - PROFESSIONAL VISITS - CASE PRESENTATION, SUBSEQUENT TO DETAILED AND EXTENSIVE TREATMENT PLANNING Routine 09/12/2024 9:00 AM EST PROPHYLAXIS - ADULT Routine 09/12/2024 9 :00 AM EST Dental plaque Dental calculus 11 ADD CLASP TO EXISTING PARTIAL DENTURE - PER TOOTH Routine 07/10/2024 10:00 AM EST 14 ADD TOOTH TO EXISTING PARTIAL DENTURE Routine 07/10/2024 10:00 AM EST 13 ADD TOOTH TO EXISTING PARTIAL DENTURE Routine 07/10/2024 10:00 AM EST 12 ADD TOOTH TO EXISTING PARTIAL DENTURE Routine 07/10/2024 10:00 AM EST ADJUNCTIVE GENERAL SERVICES - PROFESSIONAL VISITS - CASE PRESENTATION, SUBSEQUENT TO DETAILED AND EXTENSIVE TREATMENT PLANNING Routine 07/10/2024 10:00 AM EST DENTURE IMPRESSION Routine 07/06/2024 9: 00 AM EDT ADJUNCTIVE GENERAL SERVICES - PROFESSIONAL VISITS - CASE PRESENTATION, SUBSEQUENT TO DETAILED AND EXTENSIVE TREATMENT PLANNING Routine 07/06/2024 9:00 AM EDT 12 EXTRACTION, ERUPTED TOOTH OR EXPOSED ROOT (ELEVATION AND/OR FORCEPS REMOVAL) Routine 07/06/2024 9:00 AM EDT DIAGNOSTIC - DIAGNOSTIC IMAGING - INTRAORAL - COMPREHENSIVE SERIES OF RADIOGRAPHIC IMAGES Routine 04/26/2023 10:00 AM EDT Severe generalized gingival recession Periodontal disease Partially edentulous mandible, unspecified edentulism class Partially edentulous maxilla, unspecified edentulism class from Last 3 Months or Most Recently Relevant to Health Maintenance Insurance [facility] H[facility] DENTAL - [facility]
--- OUTSIDE RECORDS SUMMARY | 2024-09-27 14:46 | XMS_ITS | Encounter Summary ---
Author Organization [employer] [facility] Address [address] [facility] [address] [place] [address] Care Team Providers Care Slat Grader Name Role Phone Unavailable Primary Care Provider Unavailabl e Reason for Visit * Reason Comments Routine Cleaning Dental Exam Encounter Details Date Type Department Care Team (Late st Contact Info) Description 09/12/2024 9:00 AM EST Office Visit [facility]ULT [facility] [address] [place] [address] Phuong Zuluaga Dental plaque (Primary Dx); Dental calculus; Encounter for dental examination; Periodontal disease Social History Tobacco Use Types Packs/Day Years Used Date Smoking Tobacco: Never Passive Smoke Exposure: Never Smokeless Tobacco: Never Alcohol Use Standard Drinks/Week Comments Never 0 (1 standard drink = 0.6 oz pur e alcohol) Comments Unknown Sex and Gender Information Value Date Recorded Sex Assigned at Female 07/06/2022 10:16 AM EDT Legal Sex Female 10:16 AM EDT Gender Identity Female 07/06/2022 10:16 AM EDT Sexual Orientation Straight 07/06/2022 10 :16 AM EDT documented as of this encounter Last Filed Vital Signs Vital Sign Reading Time Taken Comments Blood Pressure 126/70 09/12/2024 8:47 AM EST Pulse - - Temperature - - Respiratory Rate - - Oxygen Saturation - - Inhaled Oxygen Concentration - - Weight - - Height - - Body Mass Index - - documented in this encounter Progress Notes * Phuong Zuluaga - 09/12/2024 9:00 AM EST Patient ID: Katty Woodward is a 74 y.o. female. Time Out: Timeout Date: 09/12/24, Timeout Time: 0850 (prophy and exam adult dental) Location: [facility] Tooth: Maxilla and Mandible Procedure: Exam, X-rays, and Prophylaxis Verified the above with patient, certified anesthesiologist assistant, and provider. Confirmed via patient's chart, intraorally and by radiographs. Poker Prop Player: not applicable Medical Hx: Vitals: Blood pressure 126/70. Medications, Med Hx reviewed with patient and updated in chart. Treatment Provided Dental procedures in this visit D1110 - PROPHYLAXIS - ADULT (Completed) Service provider: Phuong Zuluaga Billing provider: Diana Flor DDS [id number] - CASE PRESENTATION, DETAILED AND EXTENSIVE TREATMENT PLANNING (Completed) Service provider: Phuong Zuluaga Billing provider: Diana Flor DDS [id number] - ORAL HYGIENE INSTRUCTIONS (Completed) Service provider: Phuong Zuluaga [place] provider: Diana Flor DDS [id number] - BITEWINGS - 2 RADIOGRAPHIC IMAGES (Completed) Service provider: Phuong Zuluaga Billing provider: Diana Flor DDS [id number] - INTRAORAL - PERIAPICAL FIRST RADIOGRAPHIC IMAGE (Completed) Service provider: Phuong Zuluaga Billing provider: Diana Flor DDS [id number] - INTRAORAL - PERIAPICAL EACH ADDITIONAL RADIOGRAPHIC IMAGE (Completed) Service provider: Phuong Zuluaga Billing provider: Diana Flor DDS [id number] - INTRAORAL - PERIAPICAL EACH ADDITIONAL RADIOGRAPHIC IMAGE (Completed) Service provider: Phuong Zuluaga Billing provider: Diana Flor DDS Instruments Used: Ultrasonic Scalers, Hand Scalers, and Prophy angle Fluoride: N/A Oral Cancer Screening: No lesions Head/Neck Exam: No Lesions Calculus: Light and Generalized Plaque: Moderate and Generalized Stain: Heavy and Generalized Bleeding: Light and Localized Gingiva: Recession- generalized OH: Fair Perio Chart: Not Completed - not due will complete at next hyg visit - generalized recession Exam with Dr. Tate - geri paleliza aguilar Oral hygiene instructions provided to patient including brushing technique and flossing. Recommendations: Frederick two times daily, modified godinez technique, Floss daily, Electric toothbrush, Soft bristle toothbrush, Frederick Tongue, Anti-sensitivity toothpaste Recall Frequency: 6 mo NV: restorative tooth #5 Hygienist: Phuong Zuluaga RDH Cosigned by Diana Flor DDS at 09/12/2024 12:40 PM EST Associated attestation - Diana Flor DDS - 09/12/2024 12:40 PM EST I have reviewed the documentation and dental procedures made by the rendering provider, Phuong Zuluaga RDH , and approve their chart entries for this visit. Diana Flor DDS * Diana Flor DDS - 09/12/2024 9:00 AM EST Dental procedures in this visit D1110 - PROPHYLAXIS - ADULT (Completed) Service provider: Phuong Zuluaga Billing provider: Diana Flor DDS [id number] - CASE PRESENTATION, DETAILED AND EXTENSIVE TREATMENT PLANNING (Completed) Service provider: Phuong Zuluaga [place] provider: Diana Flor DDS [id number] - ORAL HYGIENE INSTRUCTIONS (Completed) Service provider: hPuong Zuluaga Billing provider: Diana Flor DDS D0272 - BITEWINGS - 2 RADIOGRAPHIC IMAGES (Completed) Service provider: Phuong Zuluaga Billing provider: Diana Flor DDS D0220 - INTRAORAL - PERIAPICAL FIRST RADIOGRAPHIC IMAGE (Completed) Service provider: Phuong Zuluaga Billing provider: Diana Flor DDS [id number] - INTRAORAL - PERIAPICAL EACH ADDITIONAL RADIOGRAPHIC IMAGE (Completed) Service provider: Phuong Zuluaga Billing provider: Diana Flor DDS [id number] - INTRAORAL - PERIAPICAL EACH ADDITIONAL RADIOGRAPHIC IMAGE (Completed) Service provider: Phuong Zuluaga Billing provider: Diana Flor DDS D0120 - PERIODIC ORAL EVALUATION - ESTABLISHED PATIENT (Completed) Service provider: Diana Flor DDS Billing provider: Diana Flor DDS [id number] - COMPREHENSIVE PERIODONTAL EVALUATION - NEW OR ESTABLISHED PATIENT (Completed) Service provider: Diana Flor DDS Billing provider: Diana Flor DDS Patient ID: Katty Woodward is a 74 y.o. female. Time Out: Timeout Date: 09/12/24, Timeout Time: 0850 (prophy and exam adult dental) Location: [facility] Tooth: Maxilla and Mandible Procedure: Exam, X-rays, and Prophylaxis Verified the above with patient, certified anesthesiologist assistant, and provider. Confirmed via patient's chart, intraorally and by radiographs. Poker Prop Player: not applicable Chief Complaint Patient presents with Routine Cleaning Dental Exam Medical Hx: Vitals: Blood pressure 126/70. Past Medical History: Diagnosis Date Arthritis Hypertension Osteoporosis Medications: Outpatient Encounter Medications as of 09/12/2024 Medication Sig Dispense Refill acetaminophen-codeine (TYLENOL/CODEINE #3) 300-30 MG tablet Take 1 tablet by mouth every 8 (eight) hours. aspirin 81 MG EC tablet take 1 tablet (81MG) by oral route every day cholecalciferol (Vitamin D3) 25 MCG (1000 UT) tablet TOME REGINE TABLETA TODOS LOS D cyclobenzaprine (Flexeril) 10 MG tablet TOME REGINE TABLETA CADA OCHO HORAS PARA EL ESPASMO MUSCULAR CUANDO SEA NECESARIO famotidine (Pepcid) 20 MG tablet Take 20 mg by mouth 2 times daily. metoprolol succinate XL (Toprol-XL) 25 MG 24 hr tablet Take 25 mg by mouth in the morning. naproxen (Naprosyn) 500 MG tablet TAKE 1 TABLET ORALLY 2 TIMES A DAY NEEDED FOR PAIN FOR 30 DAYS No facility-administered encounter medications on file as of 09/12/2024. Objective HPI Soft Tissue Exam No findings documented this visit Head and Neck Exam: Lymph Nodes, Lips, Palate, Buccal Mucosa, Floor of Mouth, Tongue, Tonsils, Alveolar Ridges, Oropharynx, Salivary Ducts, and Vestibules Details: small palatine jeff OCS: negative Dental Exam Radiographic Interpretation: Associated radiographs for today's visit were reviewed and finding(s) were discussed with the patient. Findings include: severe bone loss, mobility, deep pockets, pt does not want to have extractions completed. Explained to the patient thatt her condition is severe with a very poor prognosis, and eventually she will need all teeth removed, having the option to replace them wih a complete denture. Pt would like to wait before the extractions are completed. Hard Tissue Exam: Fractured restorations/teeth Perio Dx: Generalized Chronic Periodontitis Stage: III Grade: C Reference tooth chart for additional findings. Oral Cancer Risk: Low Risk Oral Hygiene Instructions: Frederick two times daily, modified godinez technique, Floss daily, Soft bristle toothbrush, Frederick Tongue Caries Risk Assessment: Medium- one risk factor Assessment/Plan Semaj #5 Eventually FM ext CDs Patient tolerated procedure well, all questions answered and expressed understanding. Dismissed in good condition. NV: Semaj #5 Temporary Administrative Assistant: Phuong Zuluaga Dentist: Diana Flor DDS documented in this encounter Plan of Treatment Upcoming Encounters Date Type Department Care Team (Late st Contact Info) Description 10/09/2024 10:30 AM EST Office Visit [facility] [address] [place] [address] Diana Flor DDS [address] [place] [address] Scheduled Orders Name Type Priority Associated Diagnoses Orde r Schedule PROPHYLAXIS - ADULT Dental Routine 1 Occ urrences starting 09/12/2024 PERIODIC ORAL EVALUATION - ESTABLISHED PATIENT Dental Routine 1 Occurren yesi starting 09/12/2024 documented as of this encounter Procedures Procedure Name Priority Date/Time Associated Diagnosis Comments PROPHYLAXIS - ADULT Routine 09/12/2024 9 :00 AM EST Dental plaque Dental calculus PERIODIC ORAL EVALUATION - ESTABLISHED PATIENT Routine 09/12/2024 9:00 AM EST Dental plaque Dental calculus Encounter for dental examination Periodontal disease ORAL HYGIENE INSTRUCTIONS Routine 2024 9:00 AM EST Dental plaque Dental calculus INTRAORAL - PERIAPICAL FIRST RADIOGRAPHIC IMAGE Routine 09/12/2024 9:00 AM EST INTRAORAL - PERIAPICAL EACH ADDITIONAL RADIOGRAPHIC IMAGE Routine 09/12/2024 9:00 AM EST INTRAORAL - PERIAPICAL EACH ADDITIONAL RADIOGRAPHIC IMAGE Routine 09/12/2024 9:00 AM EST COMPREHENSIVE PERIODONTAL EVALUATION - NEW OR ESTABLISHED PATIENT Routine 09/12/2024 9:00 AM EST Dental plaque Dental calculus Encounter for dental examination Periodontal disease ADJUNCTIVE GENERAL SERVICES - PROFESSIONAL VISITS - CASE PRESENTATION, SUBSEQUENT TO DETAILED AND EXTENSIVE TREATMENT PLANNING Routine 09/12/2024 9:00 AM EST BITEWINGS - 2 RADIOGRAPHIC IMAGES Routine 09/12/2024 9:00 AM EST documented in this encounter Visit Diagnoses Diagnosis Dental plaque- Primary Accretions on teeth Dental calculus Accretions on teeth Encounter for dental examination Periodontal disease Unspecified gingival and periodontal disease documented in this encounter
--- OUTSIDE RECORDS SUMMARY | 2024-09-27 14:46 | XMS_ITS | Encounter Summary ---
Author Organization [employer] [facility] Address [address] [facility] [address] [place] [address] Care Team Providers Care Extractor Tender Raw Stock Name Role Phone Unavailable Primary Care Provider Unavailabl e Encounter Details Date Type Department Care Team (Latest Contact Info) Description 12/08/2018 Abstract [facility] CONVERSIONS Dental, Provider, DDS Social History Tobacco [...] Description 10/09/2024 10:30 AM EST Office Visit [facility] ADULT DENT[facility] [address] [place] [address] Hoffman-Tate, Diana, DDS [address] [place] [address] documented as of this encounter Visit Diagnoses Not on filedocumented in this encounter
== END 2024-09-27 13:23 | disposition home or self-care (01) ==
PROVIDERS: PCP Internal Medicine; Visit Provider Internal Medicine Cardiovascular Disease
DX: I47.10 Supraventricular tachycardia, unspecified (principal)
CPT/HCPCS: 93010; 99213

== ENCOUNTER → 2024-09-27 12:55 | Outpatient (BNVA) | payer OTHER, SELFPAY | PROVIDERS: PCP Internal Medicine; Visit Provider Internal Medicine Cardiovascular Disease | DX: I47.10 Supraventricular tachycardia, unspecified (principal); I10 Essential (primary) hypertension | CPT/HCPCS: 93005; 99212 ==

== ENCOUNTER 2024-11-15 12:10 | Emergency (ER) | payer OTHER, SELFPAY ==
--- NOTE | ~2024-11-15 | XR_ITS ---
EXAMINATION: XR SHOULDER 2 OR MORE VIEWS RIGHT HISTORY: pain COMPARISON: There are no prior studies available for comparison. FINDINGS: Four views of the right shoulder are submitted. Osseous mineralization is normal. There is no fracture or dislocation. The glenohumeral and acromioclavicular joint spaces are maintained. Tiny soft tissue calcifications adjacent to the greater tuberosity of the humerus are likely related to the rotator cuff. XR/XR shoulder RT min 2V IMPRESSION: Probable rotator cuff calcifications. Otherwise unremarkable examination of the right shoulder. Electronically signed by: Abdias Miranda MD 11/15/2024 01:11 PM EDT
--- NOTE | ~2024-11-15 | XR_ITS ---
EXAMINATION: XR ELBOW 3 VIEWS RIGHT HISTORY: pain COMPARISON: There are no prior studies available for comparison. FINDINGS: Three views of the right elbow are submitted. Osseous mineralization is normal. There is no fracture or dislocation. The joint spaces are preserved. The soft tissues are unremarkable. XR/XR elbow RT min 3V IMPRESSION: Unremarkable examination of the right elbow. Electronically signed by: Abdias Miranda MD 11/15/2024 01:08 PM EDT
[2024-11-15 12:35] VITALS: BP 182/77; PULSE 84; RESP 19; TEMP 36.6; O2SAT 98; BMI 31.3
--- NOTE | 2024-11-15 12:38 | ED_ITS ---
HPI - Extremity Problem General Chief complaint: Extremity Injury, Upper Stated complaint: R Arm Pain No Injury Related Data Home Medications ?Medication ?Instructions ?Recorded ?Confirmed denosumab 60 mg/mL subcutaneous 60 mg subcut [id number] 05/03/24 09/27/24 syringe (Prolia) Previous Rx's ?Medication ?Instructions ?Recorded Grab bar #1 ea 12/23/21 bath bench with arms #1 ea 12/23/21 showerhead handheld #1 ea 12/23/21 metoprolol succinate 25 mg 25 mg PO DAILY #90 tabs 10/19/23 tablet,extended release 24 hr acetaminophen 650 mg 1,300 mg (2 x 650 mg) PO Q8H PRN 03/21/24 tablet,extended release pain 30 days #180 tabs aspirin 81 mg tablet,delayed 81 mg PO DAILY 90 days #90 tabs 05/14/24 release cholecalciferol (vitamin D3) 25 25 mcg PO DAILY #90 tabs 05/14/24 mcg (1,000 unit) tablet (Vitamin D3) cyclobenzaprine 10 mg tablet 10 mg PO Q8H PRN Muscle spasm 30 09/18/24 days #90 tabs famotidine 20 mg tablet 20 mg PO DAILY PRN Heartburn 90 11/08/24 days #90 tabs Allergies Allergy/AdvReac Type Severity Reaction Status Date / Time tizanidine Allergy Intermediate dry mouth Verified 11/15/24 12:36 PMFSH Past Medical History Medical History SVT (supraventricular tachycardia) Food bolus obstruction of intestine Compression fracture Osteoporosis Vitamin D deficiency Low back pain Osteoarthritis Polyarthralgia Hypovitaminosis D Obese GERD (gastroesophageal reflux disease) Essential hypertension Surgical History Hx of colonoscopy History of tubal ligation Family History Family History Father Cancer Mother Cancer Son Past heart attack Social History Social History Household Members: None Housing: Apartment Are you a primary care administrative tech to a significant other at home: No Do you presently have visiting nurse or other home services: Yes (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) Alcohol intake: never Patient Tobacco Use Status: Never used Tobacco e-Cigarette/Vaping Use: Never Used Second Hand Smoke Exposure: No Advance Directives: No Advance Directives Information Provided: Yes service: No Current occupational status: disabled Sexual orientation: Straight/Heterosexual Gender identity: Female Cognitive needs: Yes Hearing needs: No Vision needs: No Physical Exam Vital Signs: Vital Signs: Last Vital Signs Temp 98 F 11/15/24 12:35 Pulse 84 11/15/24 12:35 Resp 19 11/15/24 12:35 BP 182/77 H 11/15/24 12:35 Pulse Ox 98 11/15/24 12:35 BMI result Body Mass Index 31.3 Course Course Course Narrative: RME, this is a rapid medical exam performed by Vinny Cortez please refer to primary provider for complete H&P- 74-year-old female presents for evaluation of right arm pain. She reports pain and swelling since yesterday. No trauma. Plan for x-ray of the shoulder and elbow. Discharge Plan Discharge Clinical Impression: Arm pain, right Patient Disposition: Left W/O Completing Treatment Prescriptions: No Action (DME) bath bench with arms See Rx Instructions .Route .MEDSUPPLY Qty: 1 0RF Rx Instructions: As directed (DME) showerhead handheld See Rx Instructions .Route .MEDSUPPLY Qty: 1 0RF Rx Instructions: As directed (DME) Grab bar Misc See Rx Instructions .Route Qty: 1 0RF Rx Instructions: As directed metoprolol succinate 25 mg tablet extended release 24 hr 25 mg PO DAILY Qty: 90 3RF Prolia 60 mg/mL syringe 60 mg subcut [id number] aspirin 81 mg tablet,delayed release (DR/EC) 81 mg PO DAILY 90 Days Qty: 90 3RF cholecalciferol (vitamin D3) [Vitamin D3] 25 mcg (1,000 unit) tablet 25 mcg PO DAILY Qty: 90 3RF famotidine 20 mg tablet 20 mg PO DAILY PRN (Reason: Heartburn) 90 Days Qty: 90 1RF acetaminophen 650 mg tablet extended release 1,300 mg PO Q8H PRN (Reason: pain) 30 Days Qty: 180 6RF cyclobenzaprine 10 mg tablet 10 mg PO Q8H PRN (Reason: Muscle spasm) 30 Days Qty: 90 0RF Discharge Date/Time: 11/15/24 20:08
== END 2024-11-15 20:08 | disposition left against medical advice (07) ==
PROVIDERS: Emergency Provider Emergency Medicine; PCP Internal Medicine
DX: M79.601 Pain in right arm (principal)
CPT/HCPCS: 73030; 73080; 99281; 99283

== ENCOUNTER → 2024-11-15 12:38 | Outpatient (BNV) | payer OTHER, SELFPAY | PROVIDERS: PCP Internal Medicine; Visit Provider Radiology Diagnostic Radiology | DX: M25.521 Pain in right elbow (principal); M25.511 Pain in right shoulder | CPT/HCPCS: 73030; 73080 ==

== ENCOUNTER 2024-11-30 08:39 | Outpatient (REF) | payer OTHER, SELFPAY ==
[2024-11-30 10:59] LABS: Alanine Aminotransferase 13 U/L (0-31); Albumin Level 4.3 g/dL (3.5-5.0); Alkaline Phosphatase 80 U/L (39-117); Anion Gap 10 (12-20); Aspartate Amino Transferase 17 U/L (5-31); Bilirubin Total 0.7 mg/dL (0.0-1.0); Blood Urea Nitrogen 23 mg/dL (9-16); Calcium 9.7 mg/dL (8.4-10.2); Carbon Dioxide 28 mmol/L (22-29); Chloride 107 mmol/L (96-108); Estimated Glomerular Filt Rate > 60; Glucose Random 124 mg/dL (60-115); Potassium 4.2 mmol/L (3.3-5.1); Sodium 141 mmol/L (135-145); Total Protein 7.5 g/dL (6.5-8.0)
[2024-12-04 16:42] LABS: Vitamin D 25-OH, D2 <4 ng/mL; Vitamin D 25-OH, D3 39 ng/mL; Vitamin D 25-OH, Total 39 ng/mL (30-100)
== END 2024-11-30 08:40 | disposition home or self-care (01) ==
LOC: HO.LAB 08:39
PROVIDERS: PCP Internal Medicine; Visit Provider Student in an Organized Health Care Education/Training Program
DX: M81.0 Age-related osteoporosis without current pathological fracture (principal); E55.9 Vitamin D deficiency, unspecified
CPT/HCPCS: 36415; 80053; 82306

== ENCOUNTER 2024-12-07 14:05 | Outpatient (AMB) | payer OTHER, SELFPAY ==
[2024-12-07 14:30] VITALS: BP 122/72; PULSE 76; O2SAT 97; BMI 31.3
--- NOTE | 2024-12-07 14:30 | A.OFFVIS_ITS ---
Vital Signs 12/07/24 14:30 Height 4 ft 6 in Weight 129 lb 13.636 oz BMI 31.3 BP 122/72 Blood Pressure Location Lt brachial Position Sitting Pulse 76 Pulse Source Pulse Oximeter Pulse Oximetry (%) 97 Oxygen Delivery Method Room Air Intake Visit Reasons: osteoporosis/prolia Intake Note: Patient last seen by Doctor Beth Calabrese on 06/15/24. Patient presents for Osteoporosis/Prolia injection follow up. Allergies tizanidine Allergy (Intermediate, Verified 12/07/24 14:34) dry mouth Medication List - Last Reconciled 12/07/24 by Beth Calabrese MD acetaminophen ER 1,300 mg (2 x 650 mg) PO Q8H PRN 30 days aspirin 81 mg PO DAILY 90 days [bath bench with arms As directed] cholecalciferol (vitamin D3) (Vitamin D3) 25 mcg PO DAILY cyclobenzaprine 10 mg PO Q8H PRN 30 days denosumab (Prolia) 60 mg subcut [id number] famotidine 20 mg PO DAILY PRN 90 days Grab bar As directed metoprolol succinate ER 25 mg PO DAILY [showerhead handheld As directed] HPI Comments Details: Patient is a 74-year-old female with history of tubular adenoma of the colon, GERD, hypertension, and osteoporosis here today for follow up Interval History: Patient last seen 06/15/2024 with me. At that time she was being evaluated for hypercalcemia. It was rechecked with ionized calcium and this returned to normal. Today she is here for her Prolia injection. Patient is doing well overall No falls or fractures Rheumatologic History: dx before 2003 Previously treated with bisphosphonate for 5 years Started on Forteo October 2018 for severe osteoporosis T-score -3.9-completed 24 months of therapy Started on Prolia October 2020-present Current Rheumatology Medication(s): Prolia 60 mg sc every 6 months Vitamin-D supplementation PFSH Medical History SVT (supraventricular tachycardia) Food bolus obstruction of intestine Compression fracture Osteoporosis Vitamin D deficiency Low back pain Osteoarthritis Polyarthralgia Hypovitaminosis D Obese GERD (gastroesophageal reflux disease) Essential hypertension Surgical History Hx of colonoscopy History of tubal ligation Family History Father Cancer Mother Cancer Son Past heart attack Social History Household Members: None Housing: Apartment Are you a primary point of care specialist to a significant other at home: No Do you presently have visiting nurse or other home services: Yes ([employer]) Alcohol intake: never Patient Tobacco Use Status: Never used Tobacco e-Cigarette/Vaping Use: Never Used Second Hand Smoke Exposure: No service: No Current occupational status: disabled Sexual orientation: Straight/Heterosexual Gender identity: Female Cognitive needs: Yes Hearing needs: No Vision needs: No Physical Exam Vital Signs: Last Vital Signs Pulse 76 12/07/24 14:30 BP 122/72 12/07/24 14:30 Pulse Ox 97 12/07/24 14:30 Oxygen Delivery Method Room Air 12/07/24 14:30 BMI result Body Mass Index 31.3 Vital signs reviewed Physical Examination CONSTITUITIONAL Patient alert and cooperative. Well appearing and in no apparent painful distress HEENT Conjunctiva and sclera clear. ?Pupils equal round and reactive to light. ?No lymphadenopathy. ? CHEST/RESPIRATORY SYSTEM Normal respiratory effort and able to speak in complete sentences. ?Clear to auscultation bilaterally. ?No crackles, rales, rhonchi, wheezes heard. CARDIAC SYSTEM Regular rate and rhythm. ?S1 and S2 heard no murmurs. ?Radial pulses intact bilaterally MSK Hands: ?Good groundskeeping maintenance strength bilaterally. No deformities noted. ?No synovitis noted to the MCPs, PIPs or DIPs. ?No tenderness to palpation of these joints. Mild Heberden nodes Wrists: ?Full range of motion at the wrists without pain. ?No tenderness to palpation or synovitis noted to the wrists. Elbows: Full range of motion without pain. No tenderness, weakness, swelling, increased warmth or erythema. Shoulders: Full range of motion without pain. No tenderness, weakness, swelling, increased warmth or erythema. Knees: ?Full range of motion. ?No tenderness, swelling, increased warmth or erythema.? Crepitations felt Tender points:?No tenderness to palpation of the bilateral trapezius, supraspinatus, greater trochanters, anterior costochondral junctions, bilateral gluteal areas, bilateral suboccipital muscle insertions SKIN Skin intact without rashes. Results Reviewed Results Reviewed: Laboratory Tests 11/30/24 08:56 Sodium 141 Potassium 4.2 Chloride 107 Carbon Dioxide 28 BUN 23 H Creatinine 0.66 Calcium 9.7 AST 17 ALT 13 Alkaline Phosphatase 80 Total Protein 7.5 Albumin 4.3 25-OH Vitamin D Total 39 DEXA 04/2024 FINDINGS: LEFT FEMUR, NECK: Current: BMD 0.989 g/cm2, Z-score 1.6, T-score -0.4, normal. Prior: BMD 0.884 g/cm2. Baseline: BMD 0.846 g/cm2. LEFT FEMUR, TOTAL: Current: BMD 0.981 g/cm2, Z-score 1.6, T-score -0.2, normal, 0.6% increase from previous, 2.5% increase from baseline (<5% change is not significant). Prior: BMD 0.975 g/cm2. Baseline: BMD 0.957 g/cm2. AP SPINE L1-L4: Current: BMD 0.721 g/cm2, Z-score -2.0, T-score -3.8, osteoporosis, 5.0% decrease from previous, 8.4% increase from baseline (<5% change is not significant). Prior: BMD 0.759 g/cm2. Baseline: BMD 0.665 g/cm2. Assessment & Plan Assessment & Plan (1) Osteoporosis: Comment: DEXA 04/2024: AP Spine -3.8, Left femur neck -0.4, Left femur total -0.2 DEXA 03/2022: AP Spine -3.5, Left femur neck -1.1, Left femur total -0.3 dx before 2003 Previously treated with bisphosphonate for 5 years Started on Forteo October 2018 for severe osteoporosis T-score -3.9-completed 24 months of therapy Started on Prolia October 2020-present Code(s): M81.0 - Age-related osteoporosis without current pathological fracture Category: Medical Qualifiers: Osteoporosis type: age-related Presence of current pathological fracture: without current pathological fracture Qualified Code(s): M81.0 - Age- related osteoporosis without current pathological fracture Plan: #Osteoporosis Patient is a 74 y.o. female with osteoporosis here today for prolia injection Plan - s/p prolia 60mg SC - DEXA 2025 RTC 6 months - Labs before visit: CBC, CMP, Vit D (2) Encounter for monitoring denosumab therapy: Code(s): Z51.81 - Encounter for therapeutic drug level monitoring; Z79.620 - terminal gauger (current) use of immunosuppressive biologic Plan: #Long-term use of Denosumab Discussed with patient the risks and benefits of denosumab (Prolia) for the management of their osteoporosis Benefits include improved bone density, decreased fracture risk Risks include rapid bone loss if denosumab stopped, osteonecrosis of the jaw especially in patients with poor oral hygiene/diabetes/use of glucocorticoids/age greater than 65 years, atypical femoral fractures, injection site reactions. Mild increased risk of infections due to RANKL on T helper cells, increased risk of hypocalcemia especially in CKD patients Keep vitamin-D at least 35 ng/mL Advised to delay non emergent dental procedures to toward the end of the 6 month cycle and if they plan to stop denosumab would need to continue antiresorptive to maintain the effects of denosumabe Plan I spent 20 minutes reviewing the record and labs, taking a history, examining the patient, discussing the treatment plan, ordering diagnostic work up and documenting in the medical record Orders: Orders Complete Blood Count Auto Diff 6 Months E55.9 - Vitamin D deficiency, unspecified, M81.0 - Age-related osteoporosis without current pathological fracture Comprehensive Met. Panel 6 Months E55.9 - Vitamin D deficiency, unspecified, M81.0 - Age-related osteoporosis without current pathological fracture Vitamin D 25-OH (D2 and D3) 6 Months E55.9 - Vitamin D deficiency, unspecified, M81.0 - Age-related osteoporosis without current pathological fracture Coding Level of Care Code Est Pt Level 3 (86757) Diagnoses Age-related osteoporosis without current pathological fracture M81.0 Osteoporosis type: age-related Presence of current pathological fracture: without current pathological fracture Encounter for monitoring denosumab therapy Z51.81; Z79.974
--- OUTSIDE RECORDS SUMMARY | 2024-12-07 15:31 | XMS_ITS ---
Author Organization [facility] Address [address] [place] [address] Care Team Providers Care Mammal Keeper Name Role Phone Angelina Ribeiro Primary Care Provider Unavailab Abdias Patrick Unavailable [phone] REASON FOR VISIT screening,hx polyps Problems Problem Type SNOMED Code ICD Code Onset Dates Problem Status W/U Status Risk Notes Problem History of polyp of colon (situation) (933867702) Personal history of colonic polyps (Z86.010) Active confirmed Problem Diverticular disease of colon (821357493) Diverticulosis of large intestine without perforation or abscess without bleeding (K57.30) Active confirmed Encounters Encounter Location Date Provider Diagnosis [facility] [place] [facility] [address] [place], [place] [id number] 03/27/2024 Abdias Singer Encounter for scre ening colonoscopy Z12.11 ; Personal history of colonic polyps Z86.010 ; Diverticulosis of large intestine without perforation or abscess without bleeding K57.30 and Other hemorrhoids K64.8 Assessments Encounter Date Diagnosis (ICD Code) Assessment Notes Treatment Notes Treatment Clinical Notes Section Notes 03/27/2024 Encounter for screening colonoscopy (ICD-10 - Z12.11) 03/27/2024 Personal history of colonic polyps (ICD-10 - Z86.010) 03/27/2024 Diverticulosis of large intestine without perforation or abscess without bleeding (ICD-10 - K57.30) 03/27/2024 Other hemorrhoids (ICD-10 - K64.8) Plan Of Treatment No Information Progress Notes * EVE KIRKB:06/1950 (74 yo F)Acc No.[id number]:03/27/2024 COLON WITH MAC Patient:?RAINE KIRK Provider:?Abdias Singer MD :1950???Age:74 Y???Sex:Female D ate:03/27/2024 Address:[address] [place] [address], [id number] Pcp:Angelina Stanley Subjective: * Chief Complaints: * ???1. Screening,hx polyps. * Medical History:? Objective: * Vitals:? Assessment: * Assessment: 1.?Encounter for screening c olonoscopy - Z12.11 (Primary)???2.?Personal history of colonic polyps - Z86.010???3.?Diverticulosis of large intestine without perforation or abscess without bleeding - K57.30???4.?Other hemorrhoids - K64.8??? Plan: * Treatment: * Procedure Codes:?G0105 COLOR EC CANCR SCR; COLNSCPY HI RISK, 0529F INTRVL 3+YRS PTS CLNSCP DOCD, Modifiers: 8P , 0528F RCMND FLW-UP 10 YRS DOCD, Modifiers: 1P * Preventive Medicine:? ??MAMIE Screening:?Colonoscopy?Was interval between colonoscopies three years or more??Yes,?Was last colonoscopy performed three or more years ago??Yes.? * * The named appointment provid er may or may not be the originator of this progress note, and it is not deemed complete until electronically signed by the appointment provider. Sign off status: Pending * Provider:?Abdias Singer MD Date:? 024 Generated for Isis neely/Analia/eTransmitting on:?12/07/2024 03:30 PM EDT
--- OUTSIDE RECORDS SUMMARY | 2024-12-07 15:31 | XMS_ITS | Encounter Summary ---
Author Organization [facility] Address [address] [place] [address] Care Team Providers Care Farm Planner Name Role Phone Unavailable Primary Care Provider Unavailabl e Encounter Details Date Type Department Care Team (Latest Contact Info) Description 12/08/2018 Abstract [facility]VERSION[facility] Dental, Provider, DDS Social History Tobacco [...] Care Team (Late st Contact Info) Description 05/15/2025 1:00 PM EDT Office Visit [facility] [address] [place] [address] Phuong Zuluaga documented as of this encounter Visit Diagnoses Not on filedocumented in this encounter
--- OUTSIDE RECORDS SUMMARY | 2024-12-07 15:31 | XMS_ITS ---
Author Organization [facility] Address [address] [place] [address] Care Team Providers Care [place]ing [place] Supervisor Name Role Phone Angelina Ribeiro Primary Care Provider Unavailab Abdias Patrick Unavailable [phone] Allergies No Known Allergies REASON FOR VISIT Patient presents today for a discuss screening colonoscopy Medications Medication SIG (Take, Route, Frequency, Duration) Notes Start Date End Date Status Vitamin D3 1000 UNIT 1 capsule Orally On ce a day for 30 day(s) Active Lisinopril 5 MG 1 tablet Orally Once a day for 30 day(s) Active Famotidine 20 MG 1 tablet at bedtime Orally Once a day for 30 day(s) Active Hydrocortisone 2.5 % 1 application to affected area Rectal Twice a day/prn Active tiZANidine HCl 4 MG 1 tablet as needed Orally Three times a day Active Omeprazole 20 MG TOME 1 CAPSULA POR V IA ORAL TODOS LOS KIM 30 for 30 Not-Taking Naproxen 500 MG TAKE 1 TABLET BY MADIHA 2 TIMES A DAY FOR PAIN FOR 30 DAYS Oral for 30 Active Prolia 60 MG/ML Subcutaneous for 180 Active Aspirin Low Dose 81 MG TOME REGINE TABLETA TODOS LOS D Oral for 90 Active Metoprolol Succinate ER 25 MG TOME REGINE TABLETA TODOS LOS D Oral for 90 Active Aspir-81 81 MG 1 tablet Orally Once a day for 30 day(s) Active Acetaminophen Extra Strength Active Social History Tobacco Use: Social History Observation Description Date Details (start date - stop date) Never Smoker NA - NA Tobacco Use/Smoking Question Answer Notes Patient is a nonsmoker Alcohol Screen Question Answer Notes Did you have a drink containing alcohol in the p ast year? No Points 0 Interpretation Negative Section Notes: Nonsmoker, no alcohol Problems Problem Type SNOMED Code ICD Code Onset Dates Problem Status W/U Status Risk Notes Problem Gastroesophageal reflux disease (214524822) GERD without esophagitis (K21.9) Active confirmed Vital Signs Temperature 97.4 degrees Fahrenheit 12/08/19 24 Blood pressure systolic 000 mm Hg 12/08/19 24 Blood pressure diastolic 00 mm Hg 024 Height 56 in 12/08/2023 Weight 146 lb 4 oz lbs 12/08/2023 BMI 32.78 kg/m2 12/08/2023 Encounters Encounter Location Date Provider Diagnosis [facility] [address] [place] [address] 12/08/2023 Abdias Singer Encounter for screen ing for malignant neoplasm of colon Z12.11 ; GERD without esophagitis K21.9 ; Preprocedural examination Z01.818 ; Long-term use of aspirin therapy Z79.82 and History of adenomatous polyp of colon Z86.010 Assessments Encounter Date Diagnosis (ICD Code) Assessment Notes Treatment Notes Treatment Clinical Notes Section Notes 12/08/2023 Encounter for screening for malignant neoplasm of colon (ICD-10 - Z12.11) Stop aspirin and Naproxen for 1 week before the colonoscopy Overall, Katty appears quite well. Given her previous history of a fairly large tubular adenoma last colonoscopy being over 3 years ago, I did recommend a followup colonoscopy for further screening purposes. We did review the rationale for that regard to colon cancer prevention. Full consent was obtained for this, including risks of bleeding and perforation. The procedure note monitored anesthesia care. She was given the below instructions regarding adjustment of her medications for the procedure. Her reflux seems to be quite stable and her daily famotidine. She is not had any recurrent dysphagia. I did advise her to continue her famotidine and to continue to be careful eating as well. Katty and her daughter were comfortable with this plan. Thank you again for allowing me to participate in Katty's care. I shall continue to keep you advised of her progress. 12/08/2023 GERD without esophagitis (ICD-10 - K21.9) Overall, Katty appears quite well. Given her previous history of a fairly large tubular adenoma last colonoscopy being over 3 years ago, I did recommend a followup colonoscopy for further screening purposes. We did review the rationale for that regard to colon cancer prevention. Full consent was obtained for this, including risks of bleeding and perforation. The procedure note monitored anesthesia care. She was given the below instructions regarding adjustment of her medications for the procedure. Her reflux seems to be quite stable and her daily famotidine. She is not had any recurrent dysphagia. I did advise her to continue her famotidine and to continue to be careful eating as well. Katty and her daughter were comfortable with this plan. Thank you again for allowing me to participate in Katty's care. I shall continue to keep you advised of her progress. 12/08/2023 Preprocedural examination (ICD-10 - Z01.818) Overall, Katty appears quite well. Given her previous history of a fairly large tubular adenoma last colonoscopy being over 3 years ago, I did recommend a followup colonoscopy for further screening purposes. We did review the rationale for that regard to colon cancer prevention. Full consent was obtained for this, including risks of bleeding and perforation. The procedure note monitored anesthesia care. She was given the below instructions regarding adjustment of her medications for the procedure. Her reflux seems to be quite stable and her daily famotidine. She is not had any recurrent dysphagia. I did advise her to continue her famotidine and to continue to be careful eating as well. Katty and her daughter were comfortable with this plan. Thank you again for allowing me to participate in Katty's care. I shall continue to keep you advised of her progress. 12/08/2023 Long-term use of aspirin therapy (ICD-10 - Z79.82) Overall, Katty appears quite well. Given her previous history of a fairly large tubular adenoma last colonoscopy being over 3 years ago, I did recommend a followup colonoscopy for further screening purposes. We did review the rationale for that regard to colon cancer prevention. Full consent was obtained for this, including risks of bleeding and perforation. The procedure note monitored anesthesia care. She was given the below instructions regarding adjustment of her medications for the procedure. Her reflux seems to be quite stable and her daily famotidine. She is not had any recurrent dysphagia. I did advise her to continue her famotidine and to continue to be careful eating as well. Katty and her daughter were comfortable with this plan. Thank you again for allowing me to participate in Katty's care. I shall continue to keep you advised of her progress. 12/08/2023 History of adenomatous polyp of colon (ICD-10 - Z86.010) Overall, Katty appears quite well. Given her previous history of a fairly large tubular adenoma last colonoscopy being over 3 years ago, I did recommend a followup colonoscopy for further screening purposes. We did review the rationale for that regard to colon cancer prevention. Full consent was obtained for this, including risks of bleeding and perforation. The procedure note monitored anesthesia care. She was given the below instructions regarding adjustment of her medications for the procedure. Her reflux seems to be quite stable and her daily famotidine. She is not had any recurrent dysphagia. I did advise her to continue her famotidine and to continue to be careful eating as well. Katty and her daughter were comfortable with this plan. Thank you again for allowing me to participate in Katty's care. I shall continue to keep you advised of her progress. Plan Of Treatment Treatment Notes Assessment Notes Encounter for screening for malignant neoplasm of colon Stop aspirin and Naproxen for 1 week bef ore the colonoscopy Future Test Test Name Order Date COLONOSCOPY 12/08/2023 Next Appt Details Follow Up: prn, Reason: Progress Notes * HEATHER KIRKADOB:06/1950 (73 yo F)Acc No.[id number]:12/08/2023 Progress Notes Patient:?RAINE KIRK DA Provider:?Abdias Singer MD :1950???Age:73 Y???Sex:Female D ate:12/08/2023 Address:[address] [place] [address] Pcp:Angelina Stanley Subjective: * Chief Complaints: * ???Patient presents today fo r a discuss screening colonoscopy * HPI: ???incontinence:? I saw Katty in the office today for evaluation of her personal history of a tubular adenoma of the colon and need for colorectal cancer screening. She is accompanied by her daughter, Ashley, who helped with interpreting. ?I last saw Katty in October of 2020, at which time she underwent a followup screening colonoscopy that was negative for any recurrent polyps. She did have a relatively large and flat tubular adenoma removed in 2019. She presently feels well from a GI standpoint. She enjoys a good appetite, without any significant heartburn or dysphagia. She denies abdominal pain, jaundice, nor unintentional weight loss. Her bowel movements have been fairly regular and without any signs of bleeding. She denies any known family history of colon cancer. ?Of note, she did have an esophageal obstruction from a large piece of meat last March. This was treated endoscopically and removed by Dr. Brooks. The exam was negative for any sign of esophageal stricture nor other significant abnormality. ?Laboratories over the last few months revealed normal chemistries and renal function, normal LFTs, and a normal CBC. * ROS:?General/Constitutional:?Change in appetite?denies.?Chills?denies.?Fatigue?denies.?Ophthalmologic:?Comments?all negative.?ENT:?Comments?all negative.?Respiratory:?hemoptysis?denies.?Cough?denies.?Cardiovascular:?Chest pain?denies.?Orthopnea?denies.?Gastrointestinal:?Comments?See HPI for details.?Genitourinary:?Hematuria?denies.?Dysuria?denies.?Musculoskeletal:?Painful joints?denies.?Weakness?denies.?Skin:?Itching?denies.?Rash?denies.?Neurologic:?Headache?denies.?Seizures?denies.?Psychiatric:?Comments?all negative.? * Medical History:? * Surgical History:?Tubal liga tion Right hand trigger finger * Hospitalization/Major Diagno stic Procedure:?No Hospitalization History. * Family History:?Father: dece ased.?Mother: .? No colon cancer, no liver cancer. * Social History:?Tobacco Use:?Tobacco Use/Smoking?Patient is a?nonsmoker.?Drugs/Alcohol:?Alcohol Screen?Did you have a drink containing alcohol in the past year??No,?Points?0,?Interpretation?Negative.?Miscellaneous:?Marital status: single. Occupation: retired. ???Nonsmoker, no alcohol. * Medications:?TakingtiZANidin e HCl 4 MG Tablet 1 tablet as needed Orally Three times a dayVitamin D3 1000 UNIT Capsule 1 capsule Orally Once a dayLisinopril 5 MG Tablet 1 tablet Orally Once a dayFamotidine 20 MG Tablet 1 tablet at bedtime Orally Once a dayHydrocortisone 2.5 % Cream 1 application to affected area Rectal Twice a day/prnAspir-81 81 MG Tablet Delayed Release 1 tablet Orally Once a dayAcetaminophen Extra Strength Naproxen 500 MG Tablet TAKE 1 TABLET BY MOUTH 2 TIMES A DAY FOR PAIN FOR 30 DAYS Oral Prolia 60 MG/ML Solution Prefilled Syringe Subcutaneous Aspirin Low Dose 81 MG Tablet Delayed Release TOME REGINE TABLETA DO LOS D Oral Metoprolol Succinate ER 25 MG Tablet Extended Release 24 Hour TOME REGINE TABLETA DO LOS D Oral Taking tiZANidine HCl 4 MG Tablet 1 tablet as needed Orally Three times a dayTaking Vitamin D3 1000 UNIT Capsule 1 capsule Orally Once a dayTaking Lisinopril 5 MG Tablet 1 tablet Orally Once a dayTaking Famotidine 20 MG Tablet 1 tablet at bedtime Orally Once a dayTaking Hydrocortisone 2.5 % Cream 1 application to affected area Rectal Twice a day/prnTaking Aspir-81 81 MG Tablet Delayed Release 1 tablet Orally Once a dayTaking Acetaminophen Extra Strength Taking Naproxen 500 MG Tablet TAKE 1 TABLET BY MOUTH 2 TIMES A DAY FOR PAIN FOR 30 DAYS Oral Taking Prolia 60 MG/ML Solution Prefilled Syringe Subcutaneous Taking Aspirin Low Dose 81 MG Tablet Delayed Release TOME REGINE TABLETA LOS D Oral Taking Metoprolol Succinate ER 25 MG Tablet Extended Release 24 Hour TOME REGINE TABLETA DOS LOS D Oral Not-Taking/PRNOmeprazole 20 MG Capsule Delayed Release TOME 1 CAPSULA POR VIA ORAL TODOS LOS KIM 30 Medication List reviewed and reconciled with the patientNot-Taking/PRN Omeprazole 20 MG Capsule Delayed Release TOME 1 CAPSULA POR VIA ORAL TODOS LOS KIM 30 Medication List reviewed and reconciled with the patient * Allergies:?N.K.D.A.yes[Aller gies Verified] Objective: * Vitals:?Wt: 146 lb 4 oz, Ht: 56 in, BMI:32.78 Index, BP: 000/00 mm Hg, Temp: 97.4. * Examination: ???General Examination: ?GENERAL APPEARANCE:?pleasant, well nourished, well developed, in no acute distress.?EYES:?sclera non-icteric.?ORAL CAVITY:?mucosa moist.?NECK/THYROID:?no cervical lymphadenopathy, neck supple.?SKIN:?nonjaundiced, no spider angiomata.?HEART:?S1, S2 normal.?LUNGS:?clear to auscultation bilaterally.?ABDOMEN:?normal bowel sounds, no guarding or rigidity, no guarding or rigidity, no masses palpable, soft, nontender, nondistended.?EXTREMITIES:?no edema.?NEUROLOGIC:?alert and oriented.? Assessment: * Assessment: 1.?GERD without esophagitis - K21.9 (Primary)?2.?Encounter for screening for malignant neoplasm of colon - Z12.11?3.?Preprocedural examination - Z01.818?4.?Long-term use of aspirin therapy - Z79.82?5.?History of adenomatous polyp of colon - Z86.010? Overall, Katty appears gus te well. Given her previous history of a fairly large tubular adenoma last colonoscopy being over 3 years ago, I did recommend a followup colonoscopy for further screening purposes. We did review the rationale for that regard to colon cancer prevention. Full consent was obtained for this, including risks of bleeding and perforation. The procedure note monitored anesthesia care. She was given the below instructions regarding adjustment of her medications for the procedure. Her reflux seems to be quite stable and her daily famotidine. She is not had any recurrent dysphagia. I did advise her to continue her famotidine and to continue to be careful eating as well. Katty and her daughter were comfortable with this plan. Thank you again for allowing me to participate in Katty's care. I shall continue to keep you advised of her progress. Plan: * Treatment: Notes: Stop aspirin and Naproxen for 1 week before the colonoscopy??2.?History of adenomatous polyp of colon?Procedure: COLONOSCOPY (Ordered for 12/08/2023)* with MACsched for 03/27/24 at 9:50 ammiralax * Procedure Codes:?3017F COLOR ECTAL CA SCREEN DOC [id number] TOBACCO [id number] BP SCR NOT PRFRM REC REASON NOS * Preventive Medicine:? ??Counseling:?Care goal follow-up plan:?Above Normal BMI Follow-up?Giving encouragement to exercise,?BMI management provided?Yes.? ??Urinary Incontinence:?Urinary Incontinence?Assessment:?Absent,?Plan of care documented:?No, reason not specified.? * Follow Up:?prn * * Sign off status: Completed true * Provider:?Abdias Singer MD Date:? 024 Generated for Isis neely/Analia/Светланаitting on:?12/07/2024 03:30 PM EDT History and Physical Notes * HPI (History of Present Illness) Category Sub-Category Detail Notes Category Not es incontinence I saw Katty in the office today for evaluation of her personal history of a tubular adenoma of the colon and need for colorectal cancer screening. She is accompanied by her daughter, Ashley, who helped with interpreting. I last saw Katty in October of 2020, at which time she underwent a followup screening colonoscopy that was negative for any recurrent polyps. She did have a relatively large and flat tubular adenoma removed in 2019. She presently feels well from a GI standpoint. She enjoys a good appetite, without any significant heartburn or dysphagia. She denies abdominal pain, jaundice, nor unintentional weight loss. Her bowel movements have been fairly regular and without any signs of bleeding. She denies any known family history of colon cancer. Of note, she did have an esophageal obstruction from a large piece of meat last March. This was treated endoscopically and removed by Dr. Brooks. The exam was negative for any sign of esophageal stricture nor other significant abnormality. Laboratories over the last few months revealed normal chemistries and renal function, normal LFTs, and a normal CBC. Examination Category Sub-Category Detail Notes Category Not es General Examination GENERAL APPEARANCE: pleasant , well nourished, well developed, in no acute distress HEAD: EYES: sclera non-icteric EARS: NOSE: THROAT: NECK/THYROID: no cervical lymphade nopathy, neck supple HEART: S1, S2 normal CHEST: LUNGS: clear to auscultatio n bilaterally ABDOMEN: normal bowel sounds, no guarding or rigidity, no guarding or rigidity, no masses palpable, soft, nontender, nondistended NEUROLOGIC: alert and oriented SKIN: nonjaundiced, no spi dedra angiomata EXTREMITIES: no edema PERIPHERAL PULSES: BACK: BREASTS: MUSCULOSKELETAL: MALE GENITOURINARY: LYMPH NODES: RECTAL EXAM: FEMALE GENITOURINARY: ORAL CAVITY: mucosa moist
--- OUTSIDE RECORDS SUMMARY | 2024-12-07 15:31 | XMS_ITS | Encounter Summary ---
Author Organization [facility] Address [address] [place] [address] Care Team Providers Care Manager Reimbursement Name Role Phone Unavailable Primary Care Provider Unavailabl e Encounter Details Date Type Department Care Team (Latest Contact Info) Description 01/13/2022 Abstract [facility] CONVERSIONS Dental, Provider, DDS Social History [...] Description 05/15/2025 1:00 PM EDT Office Visit [facility] ADULT DENTAL [address] [place] [address] Phuong Zuluaga documented as of this encounter Visit Diagnoses Not on filedocumented in this encounter
--- OUTSIDE RECORDS SUMMARY | 2024-12-07 15:31 | XMS_ITS | Patient Health Record ---
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 Name Role Phone Angelina Ribeiro Primary Care Provider Unavailab Abdias Patrick Unavailable [phone] Allergies No Known Allergies Reason For Referral No Information Medications Medication SIG (Take, Route, Frequency, Duration) Notes Start Date End Date Status Aspir-81 81 MG 1 tablet Orally Once a day for 30 day(s) Active Acetaminophen Extra Strength Active Omeprazole 20 MG TOME 1 CAPSULA POR V IA ORAL TODOS LOS KIM 30 for 30 Not-Taking Naproxen 500 MG TAKE 1 TABLET BY MADIHA 2 TIMES A DAY FOR PAIN FOR 30 DAYS Oral for 30 Active Vitamin D3 1000 UNIT 1 capsule Orally On ce a day for 30 day(s) Active Lisinopril 5 MG 1 tablet Orally Once a day for 30 day(s) Active Famotidine 20 MG 1 tablet at bedtime Orally Once a day for 30 day(s) Active Dulcolax (colon prep) 5 MG take at 3:00 p.m and 7:00p.m. Orally two tablets twice a day for one day for 1 day 02/16/2019 Active Hydrocortisone 2.5 % 1 application to affected area Rectal Twice a day/prn Active tiZANidine HCl 4 MG 1 tablet as needed Orally Three times a day Active MiraLax (colon prep) 17 GM/SCOOP 1 238GM bottle mixed with Gatorade or Crystal Light Orally begin at 5:00 p.m. the day before the procedure for 1 day 02/16/2019 Active Prolia 60 MG/ML Subcutaneous for 180 Active Aspirin Low Dose 81 MG TOME REGINE TABLETA TODOS LOS D Oral for 90 Active Metoprolol Succinate ER 25 MG TOME REGINE TABLETA TODOS LOS D Oral for 90 Active Immunizations Vaccine Route Administration Date Status Comme nts Influenza Unknown 06/15/2018 Administered Influenza Unknown 05/07/2020 Administered Influenza Unknown 06/29/2023 Administered Social History Tobacco Use: Social History Observation Description Date Details (start date - stop date) Never Smoker NA - NA Tobacco Use/Smoking Question Answer Notes Patient is a nonsmoker Alcohol Screen Question Answer Notes Did you have a drink containing alcohol in the p ast year? No Points 0 Interpretation Negative Section Notes: Nonsmoker, no alcohol Nonsmoker, no alcohol Nonsmoker, no alcohol Problems Problem Type SNOMED Code ICD Code Onset Dates Problem Status W/U Status Risk Notes Problem 003925960 Encounter for screening for malignant neoplasm of colon (Z12.11) Active confirmed Problem History of adenomatous polyp of colon (051599368) History of adenomatous polyp of colon (Z86.010) Active confirmed Problem History of polyp of colon (situation) (438971381) Personal history of colonic polyps (Z86.010) Active confirmed Problem Diverticular disease of colon (343356573) Diverticulosis of large intestine without perforation or abscess without bleeding (K57.30) Active confirmed Problem [id number] Preprocedural examination (Z01.818) Active confirmed Problem Long-term current use of aspirin (593391609178027) Aspirin long-term use (Z79.82) Active confirmed Problem 998724812 Long-term use of aspirin therapy (Z79.82) Active confirmed Problem Gastroesophageal reflux disease (976317472) GERD without esophagitis (K21.9) Active confirmed Vital Signs Temperature 97.4 degrees Fahrenheit 12/08/2023 Blood pressure diastolic 00 mm Hg 12/08/2023 Height 56 in 12/08/2023 Blood pressure systolic 000 mm Hg 12/08/2023 Weight 146 lb 4 oz lbs 12/08/2023 BMI 32.78 kg/m2 12/08/2023 Encounters Encounter Location Date Provider Diagnosis [facility] [place] Outpatient [address] [place] [id number] 03/27/2024 Abdias Singer Encounter for screen ing colonoscopy Z12.11 ; Personal history of colonic polyps Z86.010 ; Diverticulosis of large intestine without perforation or abscess without bleeding K57.30 and Other hemorrhoids K64.8 [facility] [address] [place] [address] 12/08/2023 Abdias Singer Encounter for screen ing for malignant neoplasm of colon Z12.11 ; GERD without esophagitis K21.9 ; Preprocedural examination Z01.818 ; Long-term use of aspirin therapy Z79.82 and History of adenomatous polyp of colon Z86.010 [facility] [address] [place] [address] 12/08/2023 Abdias Singer Assessments Encounter Date Diagnosis (ICD Code) Assessment Notes Treatment Notes Treatment Clinical Notes Section Notes 03/27/2024 Encounter for screening colonoscopy (ICD-10 - Z12.11) 03/27/2024 Personal history of colonic polyps (ICD-10 - Z86.010) 12/08/2023 Encounter for screening for malignant neoplasm [...] to keep you advised of her progress. 03/27/2024 Diverticulosis of large intestine without perforation or abscess without bleeding (ICD-10 - K57.30) 12/08/2023 Preprocedural examination (ICD-10 - Z01.818) Overall, [...] to keep you advised of her progress. 03/27/2024 Other hemorrhoids (ICD-10 - K64.8) 12/08/2023 Long-term use of aspirin therapy (ICD-10 [...] advised of her progress. Plan Of Treatment Future Test Test Name Order Date COLONOSCOPY 02/16/2019 COLONOSCOPY 09/17/2020 COLONOSCOPY 12/08/2023 Insurance Providers Payer Name Payer Address Payer Phone Subscriber Number Group Number Insured Name Patient Relationship to Insured Coverage Start Date Coverage End Date [facility] [address] [address] [place] [address] [id number] KATTY KIRK Self - patient is the insured Medical (General) History Medical History History ICD Code Denies ID,DM,CVA,Lung disease,renal dise ase HTN Neg. screening colonoscopy in 07/2007 Arthritis GERD Screening colonoscopy in Jun revealed an approximately 2 cm Flat adenomatous polyp in the very proximal ascending colon along the inferior portion of the ileocecal valve. This was removed via snare polypectomy. Neg colonoscopy in 10/2020 Esophageal food impaction fr om a large piece of food 03/2023-removed by EGD with Dr. Brooks. There was no esophageal stricture Vertebral compression fractures Surgical History Surgery Date(Month/Year) Tubal ligation Right hand trigger finger
--- OUTSIDE RECORDS SUMMARY | 2024-12-07 15:31 | XMS_ITS ---
Author Organization [facility] Address [address] [place] [address] Care Team Providers Care Senior Estimator Name Role Phone Angelina Ribeiro Primary Care Provider Unavailab Abdias Patrick Unavailable [phone] REASON FOR VISIT bowel prep Medications Medication SIG (Take, Route, Frequency, Duration) Notes Start Date End Date Status Dulcolax (colon prep) 5 MG take at 3:00 p.m and 7:00p.m. Orally two tablets twice a day for one day for 1 day 02/16/2019 Active MiraLax (colon prep) 17 GM/SCOOP 1 238GM bottle mixed with Gatorade or Crystal Light Orally begin at 5:00 p.m. the day before the procedure for 1 day 02/16/2019 Active Encounters Encounter Location Date Provider Diagnosis [facility] [address] [place] [phone] 12/08/2023 Abdias Singer Plan Of Treatment Medication Medication Name Sig Start Date Stop Date Notes Dulcolax (colon prep) 5 MG take at 3:00 p.m and 7:00p.m. Orally two tablets twice a day for one day for 1 day 02/16/2019 MiraLax (colon prep) 17 GM/SCOOP 1 238GM bottle mixed with Gatorade or Crystal Light Orally begin at 5:00 p.m. the day before the procedure for 1 day 02/16/2019 Progress Notes * EVE KIRKB:06/1950 (73 yo F)Acc No.[id number]:12/08/2023 Patient:?RAINE KIRK :1950???Age:73 Y???Sex:Female Address:[address] [place] [address] * Refills? Refill MiraLax (colon prep) Powder, 17 GM/SCOOP, Orally, 1, 1 238GM bottle mixed with Gatorade or Crystal Light, begin at 5:00 p.m. the day before the procedure, 1 day, Refills=0 Refill Dulcolax (colon prep) Tablet Delayed Release, 5 MG, Orally, 4, take at 3:00 p.m and 7:00p.m., two tablets twice a day for one day, 1 day, Refills=0 * true * Date:? Generated for Isis neely/Analia/Светланаitting on:?12/07/2024 03:31 PM EDT
--- OUTSIDE RECORDS SUMMARY | 2024-12-07 15:31 | XMS_ITS | Clinical Summary ---
Author Organization [employer] Address [address] [facility] 7[address] [place] [address] Care Team Providers Care Factory Assembler Name Role Phone Unavailable Primary Care Provider [...] Active Problems Problem Noted Date Diagnosed Date Diverticular disease of colon 11/07/2024 History of colonic polyps 11/07/2024 Missing teeth, acquired 07/10/2024 Open fracture of tooth 07/06/2024 Ill-fitting dentures 07/06/2024 Extruded tooth 12/31/2023 Excessive attrition of teeth, limited to enamel 05/24/2023 History of tooth extraction 01/22/2023 Severe generalized gingival recession 10/05/2022 Periodontal disease 10/05/2022 Bone loss 10/05/2022 Periodontitis 12/22/2013 Obesity 03/07/2012 Backache 02/10/2012 Gastroesophageal reflux disease 02/10/2012 Hypertension 02/10/2012 Osteoporosis 02/10/2012 Encounters Date Type Department Care Team Description 11/07/2024 9:00 AM EST Office Visit [facility] [address] [place] [address] Diana Flor DDS Dental caries (Primary Dx); Open fracture of tooth, initial encounter 09/12/2024 9:00 AM EST Office Visit [facility] [address] [place] [address] ZanPhuong Dental plaque (Primary Dx); Dental calculus; Encounter for dental examination; Periodontal disease from Last 3 Months Immunizations Name Administration Dates Next Due Influenza High-dose Quadriva lent Preservative Free 05/13/2023,05/14/2022,05/07/2020 Influenza injectable quadriv alent IIV4 with preservative 06/26/2015 Influenza injectable quadriv alent preservative free 04/28/2021,07/16/2016 Influenza, High Dose Seasona l, Preservative Free 04/19/2017 Influenza, IIV3, injectable 05/31/2014 Influenza, Split (incl. luis fied surface antigen) 07/27/2013,05/11/2012 Influenza, trivalent, adjuvanted 05/01/2019,04/08 Pfizer Covid-19 Vaccine 12+ 06/15/2023 Pneumococcal Polysaccharide [...] Sign Reading Time Taken Comments Blood Pressure 132/82 11/07/2024 9:02 AM EST Pulse 69 05/18/2024 2:53 PM EDT Temperature - - Respiratory Rate - - Oxygen Saturation - - Inhaled Oxygen Concentration - - Weight - - Height - - Body Mass Index - - Plan of Treatment Upcoming Encounters Date Type Department Care Team (Late st Contact Info) Description 05/15/2025 1:00 PM EDT Office Visit [facility] [address] [place] [address] Phuong Zuluaga Health Maintenance Due Date Last Done Comments [...] 09/12/2024, 0 11/09/2023, 04/26/2023, Additional history exists Dental X-Ray: Bitewings 09/13/2025 09/12/19, 04/26/2023, 10/05/2022 Tobacco Screening 11/07/2025 11/07/2024 Dental X-Ray: Full Mouth 04/27/2026 04/26/2023 DTaP/Tdap/Td Vaccines (3 - Td or Tdap) 06/19/2029 06/19/2019, 07/27/2013, 09/25/2009 Zoster Vaccines Completed 01/29/2022, 06/07, 05/31/2014 Pneumococcal Vaccine: 50+ Years Completed 04/14/2024, 06/19/2019 Influenza Vaccine Completed [...] Procedure Name Priority Date/Time Associated Diagnosis Comments CASE PRESENTATION, DETAILED AND EXTENSIVE TREATMENT PLANNING Routine 11/07/2024 9:00 AM EST Dental caries Open fracture of tooth, initial encounter 5 MOBB(V) RESIN-BASED COMPOSITE - 3 SURF, POSTERIOR Routine 11/07/2024 9:00 AM EST Dental caries Open fracture of tooth, initial encounter COMPREHENSIVE PERIODONTAL EVALUATION - NEW OR ESTABLISHED [...] 9:00 AM EST Dental plaque Dental calculus CASE PRESENTATION, DETAILED AND EXTENSIVE TREATMENT PLANNING Routine 09/12/2024 9:00 AM EST PROPHYLAXIS - ADULT Routine 09/12/2024 9 :00 AM EST Dental plaque Dental calculus INTRAORAL - COMPLETE SERIES OF RADIOGRAPHIC IMAGES Routine 04/26/2023 10:00 AM EDT Severe generalized gingival recession Periodontal disease Partially edentulous mandible, unspecified edentulism class Partially edentulous maxilla, unspecified edentulism class from Last 3 Months or Most Recently Relevant to Health Maintenance Insurance [facility]
--- OUTSIDE RECORDS SUMMARY | 2024-12-07 15:31 | XMS_ITS | Encounter Summary ---
Author Organization [employer] [facility] Address [address] [place] [address] Care Team Providers Care It Coordinator Name Role Phone Unavailable Primary Care Provider Unavailabl e Encounter Details Date Type Department Care Team (Late st Contact Info) Description 12/09/2022 Abstract [facility] [address] [place] [address] Tk Cannon DDS [address] [place] [address] Social History Tobacco Use Types Packs/Day Years [...] Description 05/15/2025 1:00 PM EDT Office Visit [facility] [address] [place] [address] Phuong Zuluaga documented as of this encounter Visit Diagnoses Not on filedocumented in this encounter
== END 2024-12-07 15:05 | disposition home or self-care (01) ==
LOC: HO.RHE 14:05
PROVIDERS: PCP Internal Medicine; Visit Provider Student in an Organized Health Care Education/Training Program
DX: M81.0 Age-related osteoporosis without current pathological fracture (principal); Z51.81 Encounter for therapeutic drug level monitoring; Z79.620 Long term (current) use of immunosuppressive biologic
CPT/HCPCS: 99213

== ENCOUNTER → 2024-12-07 14:05 | Outpatient (BNVA) | payer OTHER, SELFPAY | PROVIDERS: PCP Internal Medicine; Visit Provider Student in an Organized Health Care Education/Training Program | DX: M81.0 Age-related osteoporosis without current pathological fracture (principal); E55.9 Vitamin D deficiency, unspecified; Z51.81 Encounter for therapeutic drug level monitoring; Z79.620 Long term (current) use of immunosuppressive biologic | CPT/HCPCS: 99212 ==

== ENCOUNTER 2025-01-15 07:08 | Outpatient (REF) | payer OTHER, SELFPAY ==
[2025-01-15 08:15] LABS: Alanine Aminotransferase 13 U/L (0-31); Albumin Level 4.2 g/dL (3.5-5.0); Alkaline Phosphatase 86 U/L (39-117); Anion Gap 13 (12-20); Aspartate Amino Transferase 20 U/L (5-31); Bilirubin Total 0.9 mg/dL (0.0-1.0); Blood Urea Nitrogen 27 mg/dL (9-16); Calcium 9.3 mg/dL (8.4-10.2); Carbon Dioxide 25 mmol/L (22-29); Chloride 106 mmol/L (96-108); Cholesterol 238 mg/dL (<200); Estimated Glomerular Filt Rate > 60; Glucose Fasting 124 mg/dL (60-99); HDL Cholesterol 74 mg/dL (>40); LDL Cholesterol Calculated 132 mg/dL (<100); Sodium 140 mmol/L (135-145); Total Protein 7.4 g/dL (6.5-8.0); Triglycerides 162 mg/dL (<150)
[2025-01-15 08:30] LABS: Vitamin D 25-OH Total 45.8 ng/mL (>30)
== END 2025-01-15 07:09 | disposition home or self-care (01) ==
LOC: HO.LAB 07:08
PROVIDERS: PCP Internal Medicine; Visit Provider Internal Medicine
DX: Z00.00 Encounter for general adult medical examination without abnormal findings (principal); E55.9 Vitamin D deficiency, unspecified; E78.5 Hyperlipidemia, unspecified
CPT/HCPCS: 36415; 80053; 80061; 82306

== ENCOUNTER 2025-01-18 07:44 | Outpatient (AMB) | payer OTHER, SELFPAY ==
[2025-01-18 07:47] VITALS: BP 138/82; BMI 31.6
--- NOTE | 2025-01-18 07:47 | MHC.PC.OV ---
Vital Signs 01/18/25 07:47 Height 4 ft 6 in Weight 131 lb BMI 31.6 BP 138/82 Blood Pressure Location Lt brachial Position Sitting Intake Visit Reasons: 4mth f/u Intake Note: Patient here for a 4 month follow up Certified Substance Abuse Counselor Required: No Accompanied by: Self / Same As Patient Allergies tizanidine Allergy (Intermediate, Verified 01/18/25 08:01) dry mouth Medication List - Last Reconciled 01/18/25 by Angelina Stanley MD acetaminophen ER 1,300 mg (2 x 650 mg) PO Q8H PRN 30 days aspirin 81 mg PO DAILY 90 days [bath bench with arms As directed] cholecalciferol (vitamin D3) (Vitamin D3) 25 mcg PO DAILY cyclobenzaprine 10 mg PO Q8H PRN 30 days denosumab (Prolia) 60 mg subcut [id number] famotidine 20 mg PO DAILY PRN 90 days Grab bar As directed metoprolol succinate ER 25 mg PO DAILY [showerhead handheld As directed] Tobacco use date assessed: 09/18/24 Fall risk assessment: No Falls in past year Last assessed Fall Risk: 01/18/25 Dental Screening Dental Screen Date: 09/18/24 HPI HPI Comments History of Present Illness Details The patient is a 74-year-old female presenting with a follow-up for chronic conditions and health maintenance. She manages her supraventricular tachycardia with Metoprolol, maintaining a stable blood pressure of 138/82 mmHg. Concerning prediabetes, a fasting glucose of 124 mg/dL suggests impaired glucose tolerance, prompting an A1c assessment for a more comprehensive evaluation. The patient has hyperlipidemia, which she addresses through diet, notably by consuming oatmeal without sugar to help reduce cholesterol levels. As part of her osteoporosis management, she receives Prolia, and recent bone densitometry results are consistent with continued follow-up in 2025. She experiences minimal depression, though details on its impact are limited. Her medication regimen also includes Vitamin D supplementation and Famotidine for acid reflux. She has a noted allergy to Tizanidine, causing dry mouth. Her healthy lifestyle choices include abstinence from smoking and alcohol use. [facility] Medical History SVT (supraventricular tachycardia) Food bolus obstruction of intestine Compression fracture Osteoporosis Vitamin D deficiency Low back pain Osteoarthritis Polyarthralgia Hypovitaminosis D Obese GERD (gastroesophageal reflux disease) Essential hypertension Surgical History Hx of colonoscopy History of tubal ligation Family History Father Cancer Mother Cancer Son Past heart attack Social History Household Members: None Housing: Apartment Are you a primary day care supervisor to a significant other at home: No Do you presently have visiting nurse or other home services: Yes ([employer]AT[employer]AL[employer]) Alcohol intake: never Patient Tobacco Use Status: Never used Tobacco e-Cigarette/Vaping Use: Never Used Second Hand Smoke Exposure: No service: No Current occupational status: disabled Sexual orientation: Straight/Heterosexual Gender identity: Female Cognitive needs: Yes Hearing needs: No Vision needs: No Questionnaire PHQ-9 Over the last 2 weeks, how often have you been bothered by any of the following problems? 1. Little interest or pleasure in doing things: more than half the days 2. Feeling down, depressed, or hopeless: not at all 3. Trouble falling or staying asleep, or sleeping too much: not at all 4. Feeling tired or having little energy: several days 5. Poor appetite or overeating: not at all 6. Feeling bad about yourself - or that you are a failure or have let yourself or your family down: not at all 7. Trouble concentrating on things, such as reading the newspaper or watching television: not at all 8. Moving or speaking so slowly that other people could have noticed. Or the opposite - being so fidgety or restless that you have been moving around a lot more than usual: not at all 9. Thoughts that you would be better off or of hurting yourself in some way: not at all Total score: 3 Depression Screening Interpretation: Positive Depression Screening Follow-up: Existing condition and Follow-up Visit Requested Depression Screening Done: Yes 30028 - PHQ-9 Billing: Yes Source: Developed by Drs. Abdias Wu, Ramoan Weinberg, Tk Alvarez and colleagues, with an educational ck from [employer]. Thrive Questionnaire Date Thrive assessed: 09/18/24 I am a: Patient What is your living situation today?: I have a steady place to live Within the past 12 months, did the food you bought not last and you didn't have the money to get more?: Never true Within the past 12 months, did you worry whether your food would run out before you got money to buy more?: Never true Do you have trouble paying for medicines?: No Do you have trouble getting transportation to medical appointments?: No Do you have trouble paying your heating and electricity bill?: No Do you have trouble taking care of your child, family member or friend?: No Do you have trouble with day-to-day activities such as bathing, preparing meals, shopping, managing finances, etc.?: No Are you currently unemployed and looking for a job?: Yes Are you interested in more education?: Yes Please select the resources that you would like help with: None Currently or been in a relationship where the following occur: No concerns reported THRIVE Score: 0 AUDIT C Alcohol Use Questionnaire (AUDIT-C) 1. How often do you have a drink containing alcohol?: Never Total Score: 0 Score Reviewed/Action Taken: No RADHA-7 AMB Questionnaire RADHA-7 Date RADHA - 7 assessed: 01/18/25 Feeling nervous, anxious, or on edge: 0 = Not at all Not being able to stop or control worryin = More than half the days Worrying too much about different things: 2 = More than half the days Trouble relaxin = More than half the days Being so restless that it is hard to sit still: 2 = More than half the days Becoming easily annoyed or irritable: 0 = Not at all Feeling afraid as if something awful might happen: 0 = Not at all Total RADHA-7 score (0-4 normal; 5-9 mild; 10-14 moderate; 15-21 severe): 8 Source: Developed by Drs. Abdias Wu, Ramona Weinberg, Tk Alvarez and colleagues, with an educational ck from [employer]. RADHA-7 Assessment Billing RADHA-7 Assessment Tool: RADHA-7 Assessment 02200 Review of Systems Const All systems reviewed & are unremarkable except as noted in HPI and below Card Denies chest pain at rest, Denies chest pain with activity, Denies edema, Denies irregular heart rhythm, Denies claudication, Denies dyspnea, Denies dyspnea on exertion, Denies orthopnea, Denies paroxysmal nocturnal dyspnea and Denies slow heart rate Resp Denies cough, Denies dyspnea and Denies dyspnea on exertion Physical exam (Primary Care) Vital Signs: Last Vital Signs BP 138/82 01/18/25 07:47 BMI result Body Mass Index 31.6 BMI Assessment/Plan discussion: High BMI High, discussed plan: lifestyle, weight reduction, dietary and physical activity Tobacco/Smoking Status: Tobacco use Status Tobacco use date assessed 09/18/24 01/18/25 07:53 Patient Tobacco Use Status Never used Tobacco 01/18/25 07:53 e-Cigarette/Vaping Use Never Used 01/18/25 07:53 PHQ-9: PHQ-9 Score PHQ-9: Total score 3 01/18/25 07:53 Depression Screening Interpretation: Positive Depression Screening Follow-up: Existing condition and Follow-up Visit Requested Thrive Assessment: Date of Thrive Assessment Date Thrive assessed 09/18/24 01/18/25 07:53 Currently or been in a relationship where the following occur: No concerns reported Resp Effort & Inspection: normal respiratory effort Auscultation: clear to auscultation bilaterally Cardio Jugular venous distension: no JVD Rate: regular rate Rhythm: regular rhythm Heart sounds: S1 normal heart sound present and S2 normal heart sound present Extrem General: Yes full ROM Results AMB Hemoglobin A1c AMB Hemoglobin A1c 6.1 % Last Edit by NYDIA Jennigns on 01/18/25 08:10 Coding Level of Care Code Est Pt Level 4 (96143) Complex EM visit Add On G2211 Diagnoses Impaired glucose tolerance R73.02 SVT (supraventricular tachycardia) I47.1 Age-related osteoporosis without current pathological fracture M81.0 Osteoporosis type: age-related Presence of current pathological fracture: without current pathological fracture Hypovitaminosis D E55.9 Gastroesophageal reflux disease, unspecified whether esophagitis present K21.9 Esophagitis presence: esophagitis presence not specified Additional Codes PHQ-9 - 74619 - PHQ-9 Billing: Yes ([id number]) RADHA-7 Assessment Billing - RADHA-7 Assessment Tool: RADHA-7 Assessment 02991 ([id number]) Time Spent (min) 21 Assessment & Plan Assessment & Plan (1) Impaired glucose tolerance: Code(s): R73.02 - Impaired glucose tolerance (oral) Category: Medical (2) SVT (supraventricular tachycardia): Code(s): I47.1 - Supraventricular tachycardia Category: Medical (3) Osteoporosis: Comment: DEXA 04/2024: AP Spine -3.8, Left femur neck -0.4, Left femur total -0.2 DEXA 03/2022: AP Spine -3.5, Left femur neck -1.1, Left femur total -0.3 dx before 2003 Previously treated with bisphosphonate for 5 years Started on Forteo October 2018 for severe osteoporosis T-score -3.9-completed 24 months of therapy Started on Prolia October 2020-present Code(s): M81.0 - Age-related osteoporosis without current pathological fracture Category: Medical Qualifiers: Osteoporosis type: age-related Presence of current pathological fracture: without current pathological fracture Qualified Code(s): M81.0 - Age-related osteoporosis without current pathological fracture (4) Hypovitaminosis D: Code(s): E55.9 - Vitamin D deficiency, unspecified Category: Medical (5) GERD (gastroesophageal reflux disease): Comment: Patient denies symptoms of GERD Code(s): K21.9 - Gastro-esophageal reflux disease without esophagitis Category: Medical Qualifiers: Esophagitis presence: esophagitis presence not specified Qualified Code(s): K21.9 - Gastro-esophageal reflux disease without esophagitis Plan Minimal depression is noted without extensive intervention at present. Regular monitoring and adjustments to patient care based on ongoing findings remain a priority. Patient was informed and verbally consented to the use of an ambient scribe for clinic note documentation during this visit. I discussed the continued management of her supraventricular tachycardia with Metoprolol and noted adequate blood pressure control. We will perform an A1c test to assess her prediabetic status further. The benefits of a high-fiber diet were reinforced for managing hyperlipidemia, which the patient is addressing by eating oatmeal regularly. Her osteoporosis management is on track with Prolia, and no immediate concerns were raised regarding her current depression level. We reviewed potential allergic reactions to Tizanidine which previously caused dry mouth. Emphasized the importance of consistent follow-up and regular monitoring of her conditions. Orders: Orders Vitamin D 25-OH Total 8 Months E55.9 - Vitamin D deficiency, unspecified AMB Hemoglobin A1c Today R73.02 - Impaired glucose tolerance (oral) Lipid Panel 8 Months E78.5 - Hyperlipidemia, unspecified Comprehensive [place]. Panel Fast 8 Months R73.02 - Impaired glucose tolerance (oral) Medications: Refilled aspirin 81 mg PO DAILY 90 days 90 tabs 3RF M81.0 - Age-related osteoporosis without current pathological fracture cholecalciferol (vitamin D3) (Vitamin D3) 25 mcg PO DAILY 90 tabs 3RF M81.0 - Age-related osteoporosis without current pathological fracture acetaminophen ER 1,300 mg (2 x 650 mg) PO Q8H 30 days PRN 180 tabs 6RF pain famotidine 20 mg PO DAILY 90 days PRN 90 tabs 1RF Heartburn Patient Instructions: - Continue taking Metoprolol as prescribed. - Schedule and complete the Hemoglobin A1c test. - Maintain a diet high in fiber to manage cholesterol levels. - Continue using Prolia and attend scheduled bone density tests. - Monitor for any changes or side effects from medications. - Inform any healthcare provider about Tizanidine allergy.
--- OUTSIDE RECORDS SUMMARY | 2025-01-18 07:47 | XMS_ITS | Encounter Summary ---
Author Organization [employer] Address [address] [place] [address] Care Team Providers Care Vehicle Mechanic Name Role Phone Unavailable Primary Care Provider Unavailabl e Encounter Details Date Type Department Care Team (Latest Contact Info) Description 12/08/2018 Abstract [facility] CONVERSIONS Dental, Provider, DDS Social [...] Description 05/15/2025 1:00 PM EDT Office Visit [facility]ULT [facility] [address] [place] [address] Phuong Zuluaga documented as of this encounter Visit Diagnoses Not on filedocumented in this encounter
--- OUTSIDE RECORDS SUMMARY | 2025-01-18 07:47 | XMS_ITS | Encounter Summary ---
Author Organization [email or web address] Address [address] [facility] [address] [place] [address] Care Team Providers Care Furniture Technician Name Role Phone Unavailable Primary Care Provider Unavailabl e Encounter Details Date Type Department Care Team (Latest Contact Info) Description 01/13/2022 Abstract [facility] Dental, Provider, DDS Social History Tobacco [...] Description 05/15/2025 1:00 PM EDT Office Visit [facility] [address] [place] [address] Phuong Zuluaga documented as of this encounter Visit Diagnoses Not on filedocumented in this encounter
--- OUTSIDE RECORDS SUMMARY | 2025-01-18 07:47 | XMS_ITS | Clinical Summary ---
Author Organization [employer] Address [address] [place] [address] Care Team Providers Care Market Basket Maker Name Role Phone Unavailable Primary Care Provider [...] Description 11/07/2024 9:00 AM EST Office Visit [facility] [address] [place] [address] Diana Flor DDS Dental caries (Primary Dx); Open fracture of tooth, initial encounter from Last 3 Months Immunizations Immunization Administration Dates Next Due Influenza High-dose Quadriva [...] Description 05/15/2025 1:00 PM EDT Office Visit [facility] [address] [place] [address] Phuong Zuluaga Health Maintenance Due Date Last [...] patient's age to complete this topic Meningococcal B Vaccine Aged Out No l onger eligible based on patient's age to complete [...] caries Open fracture of tooth, initial encounter PROPHYLAXIS - ADULT Routine 09/12/2024 9 :00 AM EST Dental plaque Dental calculus BITEWINGS - 2 RADIOGRAPHIC IMAGES Routine 09/12/2024 9:00 AM EST PERIODIC ORAL EVALUATION - ESTABLISHED PATIENT Routine 09/12/2024 9:00 AM EST Dental plaque Dental calculus Encounter for dental examination Periodontal disease INTRAORAL - COMPLETE SERIES OF RADIOGRAPHIC IMAGES Routine 04/26/2023 10:00 AM EDT Severe generalized gingival recession Periodontal disease Partially edentulous mandible, unspecified edentulism class Partially edentulous maxilla, unspecified edentulism class from Last 3 Months or Most Recently Relevant to Health Maintenance Insurance [facility] HMO [facility]
== END 2025-01-18 09:03 | disposition home or self-care (01) ==
LOC: HO.HMCH 07:45
PROVIDERS: PCP Internal Medicine; Visit Provider Internal Medicine
DX: R73.02 Impaired glucose tolerance (oral) (principal); I47.10 Supraventricular tachycardia, unspecified; M81.0 Age-related osteoporosis without current pathological fracture; E55.9 Vitamin D deficiency, unspecified; K21.9 Gastro-esophageal reflux disease without esophagitis

== ENCOUNTER → 2025-01-18 07:44 | Outpatient (BNVA) | payer OTHER, SELFPAY | PROVIDERS: PCP Internal Medicine; Visit Provider Internal Medicine | DX: R73.02 Impaired glucose tolerance (oral) (principal); I47.10 Supraventricular tachycardia, unspecified; M81.0 Age-related osteoporosis without current pathological fracture; E55.9 Vitamin D deficiency, unspecified; K21.9 Gastro-esophageal reflux disease without esophagitis | CPT/HCPCS: 83036; 96127; 99212 ==

== ENCOUNTER 2025-05-31 07:44 | Outpatient (REF) | payer OTHER, SELFPAY ==
--- OUTSIDE RECORDS SUMMARY | 2025-05-31 07:48 | XMS_ITS | Encounter Summary ---
Author Organization [employer] Address [address] [place] [address] Care Team Providers Care Coconut Jelly Roller Name Role Phone Unavailable Primary Care Provider Unavailabl e Encounter Details Date Type Department Care Team (Late st Contact Info) Description 12/09/[address] [facility]ULT [facility] [address] [place] [address] Tk Cannon DDS [address] [place], [place] [id number] Social History Tobacco Use Types Packs/Day Years [...] as of this encounter Plan of Treatment Not on file documented as of this encounter Visit Diagnoses Not on filedocumented in this encounter
--- OUTSIDE RECORDS SUMMARY | 2025-05-31 07:48 | XMS_ITS | Encounter Summary ---
Author Organization [employer] Address [address] [facility] [address] [place] [address] Care Team Providers Care Radiological Metallurgist Name Role Phone Unavailable Primary Care Provider Unavailabl e Encounter Details Date Type Department Care Team (Latest Contact Info) Description 01/13/2022 Abstract [facility] CONVERSIONS Dental, Provider, DDS Social History [...]
--- OUTSIDE RECORDS SUMMARY | 2025-05-31 07:48 | XMS_ITS | Clinical Summary ---
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 Role Phone Unavailable Primary Care [...] Active Problems Problem Noted Date Diagnosed Date Chronic periodontitis 04/05/2025 Diverticular disease of colon 11/07/2024 History of [...] Encounters Date Type Department Care Team Description 04/05/2025 11:00 AM EDT Office Visit [facility] [address] [place] [address] Maegan Guerrero Dental plaque (Primary Dx); Missing teeth, acquired; Extruded tooth; Excessive attrition of teeth, limited to enamel; Chronic periodontitis; Severe generalized gingival recession from Last 3 Months Immunizations Immunization Administration [...] Sign Reading Time Taken Comments Blood Pressure 148/70 04/05/2025 11:04 AM EDT Pulse 69 05/18/2024 2:53 PM EDT Temperature - - Respiratory Rate - - Oxygen Saturation - - Inhaled Oxygen Concentration - - Weight - - Height - - Body Mass Index - - Plan of Treatment Health Maintenance Due Date Last Done Comments Depression Screening 1949 Lipid Panel 1949 SDOH Screening 1949 Alcohol/Substance Use Screening 1961 Hepatitis C Screening 1967 Dental Oral Exam 03/13/2025 09/12/2024, 01/2024, 04/26/2023, Additional history exists COVID-19 Vaccine ( season) 2025 06/15/2023, 07/15/2022, 01/19/2022, Additional history exists Influenza Vaccine (#1) 2025 , 05/13/2023, 05/14/2022, Additional history exists Dental X-Ray: Bitewings 09/13/2025 09/12/19, 04/26/2023, 10/05/2022 Dental Prophylaxis 10/07/2025 04/05/2025, 0 09/12/2024, 11/09/2023, Additional history exists Tobacco Screening 11/07/2025 11/07/2024 Dental X-Ray: Full Mouth 04/27/2026 04/26/2023 DTaP/Tdap/Td Vaccines (3 - Td or Tdap) 06/19/2029 06/19/2019, 07/27/2013, 09/25/2009 Zoster Vaccines Completed 01/29/2022, 06/07, 05/31/2014 Pneumococcal Vaccine: 50+ Years Completed 04/14/2024, 06/19/2019 RSV Patients and Patients Aged 60 years or older Completed 04/14/2024 HIB Vaccines Aged Out No longer eligi [...] PRESENTATION, DETAILED AND EXTENSIVE TREATMENT PLANNING Routine 04/05/2025 11:00 AM EDT Dental plaque Missing teeth, acquired Extruded tooth Excessive attrition of teeth, limited to enamel Chronic periodontitis Severe generalized gingival recession Full TOPICAL APPLICATION OF FLUORIDE VARNISH Routine 04/05/2025 11:00 AM EDT Excessive attrition of teeth, limited to enamel Chronic periodontitis Severe generalized gingival recession ORAL HYGIENE INSTRUCTIONS Routine 04/05/2025 11:00 AM EDT Dental plaque Missing teeth, acquired Extruded tooth Excessive attrition of teeth, limited to enamel Chronic periodontitis Severe generalized gingival recession PROPHYLAXIS - ADULT Routine 04/05/2025 1 1:00 AM EDT Dental plaque Chronic periodontitis BITEWINGS - 2 RADIOGRAPHIC IMAGES Routine 09/12/2024 [...] Recently Relevant to Health Maintenance Insurance [facility]
--- OUTSIDE RECORDS SUMMARY | 2025-05-31 07:48 | XMS_ITS | Encounter Summary ---
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
[2025-05-31 07:58] LABS: MANUAL DIFF FLAG NO
[2025-05-31 08:24] LABS: Hematocrit 42.1 % (37.0-47.0); Hemoglobin 14.2 g/dl (12.0-16.0); Imm Gran Abs Auto 0.01 X10*3/uL (0.00-0.03); Imm Gran Pct Auto 0.2 % (0.0-0.4); Lymphocytes Absolute Auto 1.6 X10*3/uL (1.2-4.9); Mean Corpuscular HGB Conc 33.7 g/dl (31.0-35.0); Mean Corpuscular Hemoglobin 30.2 pg (27.0-33.0); Mean Corpuscular Volume 89.6 fL (80.0-98.0); NRBC Abs Auto 0.000 X10*3/uL (0.0-0.012); NRBC Pct Auto 0.0 /100WBC (0.0-0.2); Platelet Count 284 X10*3/uL (160-400); Red Blood Count 4.70 X10*6/uL (4.20-5.50); White Blood Count 6.0 X10*3/uL (4.8-10.8)
[2025-05-31 08:48] LABS: Alanine Aminotransferase 20 U/L (0-31); Albumin Level 4.5 g/dL (3.5-5.0); Alkaline Phosphatase 94 U/L (39-117); Anion Gap 11 (12-20); Aspartate Amino Transferase 24 U/L (5-31); Blood Urea Nitrogen 15 mg/dL (9-16); Calcium 9.6 mg/dL (8.4-10.2); Carbon Dioxide 30 mmol/L (22-29); Chloride 104 mmol/L (96-108); Estimated Glomerular Filt Rate > 60; Potassium 4.0 mmol/L (3.3-5.1); Sodium 141 mmol/L (135-145); Total Protein 7.4 g/dL (6.5-8.0)
[2025-06-06 14:29] LABS: Vitamin D 25-OH, D2 <4 ng/mL; Vitamin D 25-OH, D3 37 ng/mL; Vitamin D 25-OH, Total 37 ng/mL (30-100)
== END 2025-05-31 07:45 | disposition home or self-care (01) ==
LOC: HO.LAB 07:44
PROVIDERS: PCP Internal Medicine; Visit Provider Student in an Organized Health Care Education/Training Program
DX: M81.0 Age-related osteoporosis without current pathological fracture (principal); E55.9 Vitamin D deficiency, unspecified
CPT/HCPCS: 36415; 80053; 82306; 85025

== ENCOUNTER 2025-06-27 12:12 | Outpatient (AMB) | payer OTHER, SELFPAY ==
[2025-06-27 12:34] VITALS: BP 134/74; PULSE 71; O2SAT 99; BMI 33.1
--- NOTE | 2025-06-27 12:34 | A.OFFVIS_ITS ---
Vital Signs 06/27/25 12:34 Height 4 ft 6 in Weight 137 lb 6 oz BMI 33.1 BP 134/74 Blood Pressure Location Lt brachial Position Sitting Pulse 71 Pulse Source Pulse Oximeter Pulse Oximetry (%) 99 Oxygen Delivery Method Room Air Intake Visit Reasons: osteoporosis/prolia Intake Note: Patient presents for follow up on osteoarthritis and Prolia injection. Vegetable Scullion Required: No Vegetable Scullion Services: Vegetable Scullion Offered & Declined Accompanied by: Daughter Allergies tizanidine Allergy (Intermediate, Verified 06/27/25 12:39) dry mouth HPI Comments Details: Patient is a 75-year-old female with history of tubular adenoma of the colon, GERD, hypertension, and osteoporosis here today for follow up Interval History: Patient last seen 01/03/25 with ok - Today she is here for her Prolia injection. - Patient is doing well overall - No falls or fractures Today - On Prolia 60mg SC every 6 months - Doing well - No falls or fractures Rheumatologic History: dx before 2003 Previously treated with bisphosphonate for 5 years Started on Forteo October 2018 for severe osteoporosis T-score -3.9-completed 24 months of therapy Started on Prolia October 2020-present Current Rheumatology Medication(s): Prolia 60 mg sc every 6 months Vitamin-D supplementation PFSH Medical History SVT (supraventricular tachycardia) Food bolus obstruction of intestine Compression fracture Osteoporosis Vitamin D deficiency Low back pain Osteoarthritis Polyarthralgia Hypovitaminosis D Obese GERD (gastroesophageal reflux disease) Essential hypertension Surgical History Hx of colonoscopy History of tubal ligation Family History Father Cancer Mother Cancer Son Past heart attack Social History Household Members: None Housing: Apartment Are you a primary care advocate to a significant other at home: No Do you presently have visiting 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) Alcohol intake: never Patient Tobacco Use Status: Never used Tobacco e-Cigarette/Vaping Use: Never Used Second Hand Smoke Exposure: No service: No Current occupational status: disabled Sexual orientation: Straight/Heterosexual Gender identity: Female Cognitive needs: Yes Hearing needs: No Vision needs: No Review of Systems Narrative Review of Systems Constitutional: Denies fever, chills, weight loss ENT: Denies vision changes, eye pain or eye redness, dental caries, dry mouth GI: Denies nausea, vomiting, diarrhea, abdominal pain, change in BM Pulm: Denies SOB, SAMUELS, hemoptysis, wheezing Cards: Denies chest pain, palpitations Skin: Denies Raynaud's, rash, nail changes, photosensitivity, 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 Well appearing and in no apparent painful distress MSK Hands * Right Hand: Able to make a fist. No swelling or tenderness to palpation of the MCPs, PIPs or DIPs. * Left Hand: Able to make a fist. No swelling or tenderness to palpation of the MCPs, PIPs or DIPs. Wrists * Right Wrist: Full ROM to flexion and extension. No swelling or TTP * Left Wrist: Full ROM to flexion and extension. No swelling or TTP Elbows * Right Elbow: Full ROM. No swelling or TTP. No TTP of the medial epicondyle. No TTP of the lateral epicondyle * Left Elbow: Full ROM. No swelling or TTP. No TTP of the medial epicondyle. No TTP of the lateral epicondyle Shoulders * Right shoulder: Full ROM. No swelling noted. No TTP of the AC joint. No TTP of the subacromial bursa. No TTP of the posterior shoulder * Left shoulder: Full ROM. No swelling noted. No TTP of the AC joint. No TTP of the subacromial bursa. No TTP of the posterior shoulder Knees * Right knee: Full ROM. No swelling noted. No TTP of the knee joint line. No TTP of pes anserine bursa * Left knee: Full ROM. No swelling noted. No TTP of the knee joint line. No TTP of pes anserine bursa. Ankles * Right ankle: Good ankle dorsiflexion and plantar flexion. No swelling. No TTP of the ankle joint * Left ankle: Good ankle dorsiflexion and plantar flexion. No swelling. No TTP of the ankle joint Feet * Right foot: Negative squeeze test * Left foot: Negative squeeze test Tender points? * No tenderness to palpation of the bilateral trapezius, supraspinatus, anterior costochondral junctions, bilateral suboccipital muscle insertions SKIN No rashes Vital Signs: Last Vital Signs Pulse 71 06/27/25 12:34 BP 134/74 06/27/25 12:34 Pulse Ox 99 06/27/25 12:34 Oxygen Delivery Method Room Air 06/27/25 12:34 BMI result Body Mass Index 33.1 Results Reviewed Results Reviewed: Laboratory Tests 05/31/25 07:56 WBC 6.0 RBC 4.70 Hgb 14.2 Hct 42.1 Plt Count 284 Sodium 141 Potassium 4.0 Chloride 104 Carbon Dioxide 30 H BUN 15 Creatinine 0.63 AST 24 ALT 20 25-OH Vitamin D Total 37 DEXA 04/2024 FINDINGS: LEFT FEMUR, NECK: Current: BMD 0.989 g/cm2, Z-score 1.6, T-score -0.4, normal. Prior: BMD 0.884 g/cm2. Baseline: BMD 0.846 g/cm2. LEFT FEMUR, TOTAL: Current: BMD 0.981 g/cm2, Z-score 1.6, T-score -0.2, normal, 0.6% increase from previous, 2.5% increase from baseline (<5% change is not significant). Prior: BMD 0.975 g/cm2. Baseline: BMD 0.957 g/cm2. AP SPINE L1-L4: Current: BMD 0.721 g/cm2, Z-score -2.0, T-score -3.8, osteoporosis, 5.0% decrease from previous, 8.4% increase from baseline (<5% change is not significant). Prior: BMD 0.759 g/cm2. Baseline: BMD 0.665 g/cm2. Assessment & Plan Assessment & Plan (1) Osteoporosis: Comment: DEXA 04/2024: AP Spine -3.8, Left femur neck -0.4, Left femur total -0.2 DEXA 03/2022: AP Spine -3.5, Left femur neck -1.1, Left femur total -0.3 dx before 2003 Previously treated with bisphosphonate for 5 years Started on Forteo October 2018 for severe osteoporosis T-score -3.9-completed 24 months of therapy Started on Prolia October 2020-present Code(s): M81.0 - Age-related osteoporosis without current pathological fracture Category: Medical Qualifiers: Osteoporosis type: age-related Presence of current pathological fracture: without current pathological fracture Qualified Code(s): M81.0 - Age- related osteoporosis without current pathological fracture Plan: #Osteoporosis Patient is a 75 y.o. female with osteoporosis here today for prolia injection. Plan - s/p prolia 60mg SC - DEXA 2025 - RTC 6 months - Labs before visit: CBC, CMP, Vit D (2) Encounter for monitoring denosumab therapy: Code(s): Z51.81 - Encounter for therapeutic drug level monitoring; Z79.899 - Other manager terminal (current) drug therapy Plan: #Long-term use of Denosumab Discussed with patient the risks and benefits of denosumab (Prolia) for the management of their osteoporosis Benefits include improved bone density, decreased fracture risk Risks include rapid bone loss if denosumab stopped, osteonecrosis of the jaw especially in patients with poor oral hygiene/diabetes/use of glucocorticoi ds/age greater than 65 years, atypical femoral fractures, injection site reactions. Mild increased risk of infections due to RANKL on T helper cells, increased risk of hypocalcemia especially in CKD patients Keep vitamin-D at least 35 ng/mL Advised to delay non emergent dental procedures to toward the end of the 6 month cycle and if they plan to stop denosumab would need to continue antiresorptive to maintain the effects of denosumabe Plan I spent 20 minutes reviewing the record and labs, taking a history, examining the patient, discussing the treatment plan, ordering diagnostic work up and documenting in the medical record Coding Level of Care Code Est Pt Level 3 (10562) Complex EM visit Add On G2211 Diagnoses Age-related osteoporosis without current pathological fracture M81.0 Osteoporosis type: age-related Presence of current pathological fracture: without current pathological fracture Encounter for monitoring denosumab therapy Z51.81; Z79.899
== END 2025-06-27 13:04 | disposition home or self-care (01) ==
LOC: HO.RHES 12:13
PROVIDERS: PCP Internal Medicine; Visit Provider Student in an Organized Health Care Education/Training Program
DX: M81.0 Age-related osteoporosis without current pathological fracture (principal); Z51.81 Encounter for therapeutic drug level monitoring; Z79.899 Other long term (current) drug therapy
CPT/HCPCS: 99213; G2211

== ENCOUNTER → 2025-06-27 12:12 | Outpatient (BNVA) | payer OTHER, SELFPAY | PROVIDERS: PCP Internal Medicine; Visit Provider Student in an Organized Health Care Education/Training Program | DX: M81.0 Age-related osteoporosis without current pathological fracture (principal); Z79.899 Other long term (current) drug therapy | CPT/HCPCS: 96372; 99212; J0897 ==